=== PATIENT | male | born 1935 | race African-American/Black ===

== ENCOUNTER 2016-09-22 18:40 | Inpatient (IN) | payer OTHER, BC ==
[2016-09-22] MEDS ORDERED: ALBUTEROL SO4 0.083% IH SOL 2.5 MG/3 ML VIAL.NEB. NEB ONE ×2 (18:52→20:07)
[2016-09-22] MEDS ORDERED: MAGNESIUM SULF 50% (8.12 MEQ/2 ML-1 GM VIAL) IVPB ONE (18:52)
[2016-09-22] MEDS ORDERED: AZITHROMYCIN IVPB 500 MG in DEXTROSE 5%-WATER - 250 ML IVPB ONE (18:53)
[2016-09-22] MEDS ORDERED: ACETAMINOPHEN 1000 MG/100 ML VIAL (NON FORMULARY) IVPB ONE (19:37)
--- NOTE | 2016-09-22 19:37 | PDOC ---
History of Present Illness - General History Source: Family Exam Limitations: No Limitations <Curry Jones - Last Filed: 09/22/16 22:20> - General History Source: Patient, EMS, Family Exam Limitations: No Limitations - History of Present Illness Initial Comments: 09/22/16 19:42 The patient is a 81 year old male brought via EMS and presenting with his daughters, with a significant past medical history of COPD, emphysema, HLD, asthmatic, gastric CA, Post resect, BPH, who presents to the emergency department with shortness of breath since yesterday which exacerbated today. The family reports that recent exams show the patient has a small nodule on his left lung. The also report that the patient has been progressively worsening. The family notes that the patient is a heavy smoker. He denies sick contacts or recent travel. The patient denies chest pain, headache and dizziness. Denies fever, chills, nausea, vomit, diarrhea and constipation. Allergies: None Past surgical history: ? stomach removed Social history: Heavy smoker. <Nacho Villa - Last Filed: 09/23/16 00:38> - General Chief Complaint: Respiratory Distress Stated Complaint: DIFFICULTY BREATHING Time Seen by Provider: 09/22/16 18:42 Past History - Past Medical History Anemia: No Asthma: No Cancer: No Cardiac Disorders: No CVA: No COPD: Yes CHF: No Dementia: No Diabetes: No GI Disorders: Yes (GERD) Disorders: Yes (BPH) HTN: No Hypercholesterolemia: Yes Liver Disease: No Seizures: No Thyroid Disease: No - Surgical History Abdominal Surgery: Yes Appendectomy: No Cardiac Surgery: No Cholecystectomy: No GI Surgery: Yes (1/3 stomach removed) Lung Surgery: No Neurologic Surgery: No Orthopedic Surgery: No - Immunization History Immunization Up to Date: Yes - Psycho/Social/Smoking Cessation Hx Anxiety: No Suicidal Ideation: No Smoking History: Current every day smoker Have you smoked in the past 12 months: Yes Number of Cigarettes Smoked Daily: 6 Information on smoking cessation initiated: No 'Breaking Loose' booklet given: 11/22/13 Hx Alcohol Use: Yes Drug/Substance Use Hx: No Substance Use Type: None Hx Substance Use Treatment: No <Curry Jones - Last Filed: 09/22/16 22:20> <Nacho Villa - Last Filed: 09/23/16 00:38> - Past Medical History Allergies/Adverse Reactions: Allergies Allergy/AdvReac Type Severity Reaction Status Date / Time No Known Allergies Allergy Verified 04/04/15 12:56 Home Medications: Ambulatory Orders Lovastatin 20 mg PO DAILY 08/08/12 Tamsulosin HCl 0.4 mg PO DAILY 08/08/12 Albuterol Sulfate [Proventil HFA Inhaler -] 1 - 2 inh PO TID 11/22/13 Salmeterol/Fluticasone [Advair 250Mcg/50Mcg -] 1 inh PO BID 11/22/13 Ipratropium [place] [Atrovent Hfa] 12.9 gm IH PRN PRN #1 hfa.aer.ad 04/04/15 Methylprednisolone [Medrol Dose Dave] 4 mg PO ASDIR #21 tablet 04/04/15 Review of Systems - Review of Systems Able to Perform ROS?: Yes Comments:: 09/22/16 19:42 GENERAL/CONSTITUTIONAL: No fever or chills. No weakness. HEAD, EYES, EARS, NOSE AND THROAT: No change in vision. No ear pain or discharge. No sore throat. CARDIOVASCULAR: +Shortness of breath. No chest pain RESPIRATORY: No cough, wheezing, or hemoptysis. GASTROINTESTINAL: No nausea, vomiting, diarrhea or constipation. GENITOURINARY: No dysuria, frequency, or change in urination. MUSCULOSKELETAL: No joint or muscle swelling or pain. No neck or back pain. SKIN: No rash NEUROLOGIC: No headache, vertigo, loss of consciousness, or change in strength/ sensation. ENDOCRINE: No increased thirst. No abnormal weight change HEMATOLOGIC/LYMPHATIC: No anemia, easy bleeding, or history of blood clots. ALLERGIC/IMMUNOLOGIC: No hives or skin allergy. <Nacho Villa - Last Filed: 09/23/16 00:38> *Physical Exam - Vital Signs Last Vital Signs Temp Pulse Resp BP Pulse Ox 100.8 F H 135 H 35 H 139/120 92 L 09/22/16 18:58 09/22/16 18:58 09/22/16 18:58 09/22/16 18:58 09/22/16 18:58 <Curry Jones - Last Filed: 09/22/16 22:20> - Vital Signs Last Vital Signs Temp Pulse Resp BP Pulse Ox 100.8 F H 135 H 35 H 139/120 100 09/22/16 18:58 09/22/16 18:58 09/22/16 18:58 09/22/16 18:58 09/22/16 19:00 - Physical Exam Comments: 09/22/16 19:48 GENERAL: Awake, alert, and fully oriented, in no acute distress HEAD: No signs of trauma, normocephalic, atraumatic EYES: PERRLA, EOMI, sclera anicteric, conjunctiva clear ENT: Auricles normal inspection, hearing grossly normal, nares patent, oropharynx clear without exudates. Moist mucosa NECK: Normal ROM, supple, no lymphadenopathy, JVD, or masses LUNGS: +Bilateral expiratory wheezing. Using accessory muscles. HEART: Regular rate and rhythm, normal S1 and S2, no murmurs, rubs or gallops, peripheral pulses normal and equal bilaterally. ABDOMEN: Soft, nontender, normoactive bowel sounds. No guarding, no rebound. No masses EXTREMITIES: 1+ pitting edema lower extremities bilaterally. Normal inspection, Normal range of motion. No clubbing or cyanosis. NEUROLOGICAL: Cranial nerves II through XII grossly intact. Normal speech, no focal sensorimotor deficits SKIN: Warm, Dry, normal turgor, no rashes or lesions noted. <Nacho Villa - Last Filed: 09/23/16 00:38> Heart Score/ECG Review #1 ECG reviewed & interpreted by me at: 19:00 09/22/16 20:05 NSR 134, biatrial enlargement, no std/torsten, QTC 424 msec <Curry Jones - Last Filed: 09/22/16 22:20> ED Treatment Course - LABORATORY CBC & Chemistry Diagram: 09/22/16 20:07 09/22/16 20:07 - RADIOLOGY Radiology Studies Ordered: Category Date Time Status CHEST X-RAY PORTABLE* [RAD] Stat Radiology 09/22/16 18:52 Ordered <Curry Jones - Last Filed: 09/22/16 22:20> - LABORATORY CBC & Chemistry Diagram: 09/22/16 20:07 09/22/16 20:07 - RADIOLOGY Radiograph Interpretation: 09/23/16 00:37 Chest X-Ray Reviewed by: Dr. Ceci Bautista Impression: Interval focal opacity/airspace disease in the right lung apex suspicious for pneumonic infiltrates. <Nacho Villa - Last Filed: 09/23/16 00:38> Medical Decision Making - Critical Care Time Total Critical Care Time (minutes): 60 Critical Care Statement: The care of this patient involved high complexity decision making to prevent further life threatening deterioration of the patient 's condition and/or to evalute & treat vital organ system(s) failure or risk of failure. - Medical Decision Making 09/22/16 20:02 A portion of this note was documented by scribe services under my direction. I have reviewed the details of the note, within reason, and agree with the documentation with the following case summary and management plan written by me. Patient treated in the ED. Nursing notes are reviewed and incorporated into the medical decision-making. Vital signs reviewed. Peripheral IV access obtained by the nurse, laboratory studies are drawn and sent, reviewed and interpreted by myself. Vital Signs Temp Pulse Resp BP Pulse Ox 100.8 F H 135 H 35 H 139/120 100 09/22/16 18:58 09/22/16 18:58 09/22/16 18:58 09/22/16 18:58 09/22/16 19:00 81-year-old male with history of COPD, hyperlipidemia, asthma, gastric cancer status post resection, BPH presents to the emergency department for difficulty breathing. Yesterday, patient continues to have some difficulty breathing and wheezing. He's been using a significant amount of albuterol. However, he has gotten progressively worse. Denies fevers or chills. Denies pain. He came into the ER via ambulance. And as a given nebulizers and 125 mg of solu-medrol. Patient continues to smoke cigarettes. Patient has respiratory distress and accessory muscle use and is ill-appearing. Patient was seen immediately by me and placed on BiPAP. Patient was given 2 g of IV magnesium and empiric azithromycin. The patient will need labs and chest x -ray and ABG and admission to the hospital. Consider ICU admission. 09/22/16 22:20 CBC, BMP 09/22/16 20:07 09/22/16 20:07 CMP Sodium 142 mmol/L (136-145) 09/22/16 20:07 Potassium 4.3 mmol/L (3.5-5.1) 09/22/16 20:07 Chloride 99 mmol/L (98-107) 09/22/16 20:07 Carbon Dioxide 34 mmol/L (21-32) H 09/22/16 20:07 Anion Gap 9 (8-16) 09/22/16 20:07 BUN 33 mg/dL (7-18) H D 09/22/16 20:07 Creatinine 2.0 mg/dL (0.7-1.3) H D 09/22/16 20:07 Creat Clearance w eGFR 32.31 (>60) 09/22/16 20:07 Random Glucose 92 mg/dL (74-106) 09/22/16 20:07 Lactic Acid 4.574 mmol/L (0.4-2.0) H* 09/22/16 19:11 Calcium 8.6 mg/dL (8.5-10.1) 09/22/16 20:07 Magnesium 3.0 mg/dL (1.8-2.4) H 09/22/16 20:07 Total Bilirubin 0.7 mg/dL (0.2-1.0) D 09/22/16 20:07 AST 2771 U/L (15-37) H 09/22/16 20:07 ALT 1261 U/L (12-78) H D 09/22/16 20:07 Alkaline Phosphatase 277 U/L (45-117) H D 09/22/16 20:07 Creatine Kinase 589 IU/L (39-308) H 09/22/16 20:07 Creatine Kinase Index 2.9 % (0.0-5.0) 09/22/16 20:07 CK-MB (CK-2) 16.926 ng/ml (0.5-3.6) H 09/22/16 20:07 CK-MB (CK-2) Rel Index Cancelled 09/22/16 20:07 Troponin I 4.00 ng/ml (0.00-0.05) H* 09/22/16 20:07 B-Natriuretic Peptide 06391.16 pg/ml (5-450) H 09/22/16 20:07 Total Protein 6.0 g/dl (6.4-8.2) L 09/22/16 20:07 Albumin 2.8 g/dl (3.4-5.0) L 09/22/16 20:07 Chest xray reviewed, pending official radiology read. Hyperinflated lungs. No obvious infiltrates. The patient was successfully weaned off BiPAP and the patient is speaking in full sentences. The patient was noted to have multiple lab abnormalities. There was multiple lab abnormalities that were concerning. He has acute renal insufficiency, also elevated LFTs and elevated troponin. I discussed the case with oil and gas field technician Dr. Blanchard. Will start aspirin and heparin. Will trend troponins. The patient has no chest pain. The patient has appeared to have multiple indications for endorgan damage. Vancomycin and Zosyn was added. Given these finding is, the patient would benefit from an ICU stay. Case was discussed with nurse practitioner in the ICU Diana who accepts the patient. Case discussed with Dr. White who accepts the patient to her service. Case discussed in detail with admitting physician including history, physical exam and ancillary studies. Admitting physician has assumed care for the patient, will follow all pending diagnostics and will complete the evaluation and treatment. <Curry Jones - Last Filed: 09/22/16 22:20> - Medical Decision Making 09/22/16 21:47 Dr. Katz was called regarding the patient at 9:44pm. Dr. Blanchard covering. Dr. Blanchard was consulted regarding the patient at 9:48pm [phone] <Nacho Villa - Last Filed: 09/23/16 00:38> *DC/Admit/Observation/Transfer - Discharge Dispostion Admit: Yes <Curry Jones - Last Filed: 09/22/16 22:20> - Attestations Scribe Attestion: 09/22/16 19:48 Documentation prepared by Nacho Villa, acting as medical cost consultant for Curry Jones MD <Nacho Villa - Last Filed: 09/23/16 00:38> Diagnosis at time of Disposition: COPD exacerbation, Elevated troponin, Acute renal insufficiency - Discharge Dispostion Condition at time of disposition: Guarded - Referrals
[2016-09-22] MEDS ORDERED: MAGNESIUM SULF 50% (8.12 MEQ/2 ML-1 GM VIAL) ONE (19:46)
[2016-09-22] MEDS ORDERED: ACETAMINOPHEN INJECTION 100 ML IVPB ONE (19:46)
[2016-09-22] MEDS ORDERED: ALBUTEROL SO4 2.5/IPRATROPIUM 0.5 INH SOL 3 ML VIAL.NEB. NEB ONE (19:46)
[2016-09-22 20:14] LABS: ARTERIAL BLD GAS O2 SATURATION 98.2 % (90-98.9); ARTERIAL BLOOD GAS BASE EXCESS 1.4 meq/l (-2-2); ARTERIAL BLOOD GAS HCO3 28.8 meq/L (22-26)
[2016-09-22 20:15] LABS: ARTERIAL BLOOD GAS pH 7.28 (7.35-7.45)
[2016-09-22 20:16] LABS: ALLENS TEST POSITIVE; ART PUNCT SITE RIGHT RADIAL; LPM/O2% 40%; MECH. VENT. BIPAP; METHEMOGLOBIN 1.4 % (0.4-1.5); PT. ON O2? YES; TYPE OF O2 OT
[2016-09-22 20:17] LABS: VENT RATE 14
[2016-09-22 20:30] LABS: BASOPHIL 0.1 % (0-2.0); MCH 27.2 pg (25.7-33.7); MCHC 31.2 g/dl (32.0-35.9); MEAN CELL VOLUME 87.2 fl (80-96); MEAN PLT VOLUME 8.5 fl (7.5-11.1); NEUTROPHILS 89.7 % (42.8-82.8); PLATELET COUNT 130 K/MM3 (134-434); RDW 15.5 % (11.9-15.9); WHITE BLOOD COUNT 4.3 K/mm3 (4.0-10.0)
[2016-09-22] MEDS ORDERED: OSELTAMIVIR PHOSPHATE 75 MG CAPSULE PO ONE (20:31)
[2016-09-22] MEDS ORDERED: AZITHROMYCIN IVPB 250 ML IVPB ONE (20:40)
[2016-09-22 20:46] LABS: INR 1.45 (0.82-1.09); PROTHROMBIN TIME (PATIENT) 16.1 SEC (9.98-11.88)
[2016-09-22 20:49] LABS: ACTIVATED PTT 35.3 SECONDS (26.9-34.4)
[2016-09-22 20:57] LABS: ALBUMIN 2.8 g/dl (3.4-5.0); BILIRUBIN,TOTAL 0.7 mg/dL (0.2-1.0); CALCIUM 8.6 mg/dL (8.5-10.1)
[2016-09-22] MEDS ORDERED: OSELTAMIVIR PHOSPHATE 75 MG CAPSULE ONE (21:18)
[2016-09-22] MEDS ORDERED: VANCOMYCIN 1,000 MG in DEXTROSE 5%-WATER - 250 ML IVPB ONE (21:50)
[2016-09-22] MEDS ORDERED: PIPERACILLIN/TAZOB 3.375 GM/50 ML PRE-DOCKED IVPB ONE (21:50)
[2016-09-22] MEDS ORDERED: VANCOMYCIN 1 GRAM (PRE-DOCKED) 250 ML IVPB ONE (22:01)
[2016-09-22] MEDS ORDERED: PIPERACILLIN/TAZOB 3.375 GM 50 ML IVPB ONE (22:02)
[2016-09-22] MEDS ORDERED: HEPARIN INFUSION - 500 ML IVPB ONE (22:02)
--- NOTE | 2016-09-22 22:14 | PN ---
<SaeedJeff - Last Filed: 09/22/16 23:51> Teaching Attending Note ATTENDING PHYSICIAN STATEMENT I saw and evaluated the patient. I reviewed the resident's note and discussed the case with the resident. I agree with the resident's findings and plan as documented. SUBJECTIVE: Patient is a 81 year old male, current heavy smoker, with significant medical history of COPD, emphysema, HLD, asthma, gastric CA post resection 1/3 removed ( underwent radiation and chemotherapy 2011), BPH who presents with SOB. The patient reports chest pressure for 2 days but denies any pressure at the moment. As per daughter, patient has abdominal aneurysm closely watched by GI and lung nodules for which he tried to schedule a PET scan. OBJECTIVE: Physical: VS: Last Vital Signs Temp Pulse Resp BP Pulse Ox 98.9 F 104 H 28 H 134/96 100 09/22/16 21:42 09/22/16 21:42 09/22/16 21:42 09/22/16 21:42 09/22/16 21:42 GEN: Cachectic using accessory muscles on O2 at bedside HEENT: NCAT, PERRL CARD: RRR, S1 S2 RESP: Decreased breath sounds all jernigan ABD: Scaphoid NT, BWS x4 EXT: - +2 pitting edema bilaterally and equal Labs: CBCD WBC 4.3 K/mm3 (4.0-10.0) 09/22/16 20:07 RBC 4.49 M/mm3 (4.00-5.60) 09/22/16 20:07 Hgb 12.2 GM/dL (11.7-16.9) 09/22/16 20:07 Hct 39.1 % (35.4-49) 09/22/16 20:07 MCV 87.2 fl (80-96) 09/22/16 20:07 MCHC 31.2 g/dl (32.0-35.9) L 09/22/16 20:07 RDW 15.5 % (11.9-15.9) 09/22/16 20:07 Plt Count 130 K/MM3 (134-434) L D 09/22/16 20:07 MPV 8.5 fl (7.5-11.1) 09/22/16 20:07 CMP Sodium 142 mmol/L (136-145) 09/22/16 20:07 Potassium 4.3 mmol/L (3.5-5.1) 09/22/16 20:07 Chloride 99 mmol/L (98-107) 09/22/16 20:07 Carbon Dioxide 34 mmol/L (21-32) H 09/22/16 20:07 Anion Gap 9 (8-16) 09/22/16 20:07 BUN 33 mg/dL (7-18) H D 09/22/16 20:07 Creatinine 2.0 mg/dL (0.7-1.3) H D 09/22/16 20:07 Creat Clearance w eGFR 32.31 (>60) 09/22/16 20:07 Calcium 8.6 mg/dL (8.5-10.1) 09/22/16 20:07 Total Bilirubin 0.7 mg/dL (0.2-1.0) D 09/22/16 20:07 AST 2771 U/L (15-37) H 09/22/16 20:07 ALT 1261 U/L (12-78) H D 09/22/16 20:07 Alkaline Phosphatase 277 U/L (45-117) H D 09/22/16 20:07 Total Protein 6.0 g/dl (6.4-8.2) L 09/22/16 20:07 Albumin 2.8 g/dl (3.4-5.0) L 09/22/16 20:07 Imaging: CXR Impression: mild congestion ASSESSMENT AND PLAN: Patient is a 81 year old male, current heavy smoker, with significant medical history of COPD, emphysema, HLD, asthma, gastric CA post resection, BPH who presents with SOB found to be in severe sepsis with CHF and COPD exacerbation 1. Severe sepsis -Repeat lactic acid -Withhold IVF now due to CHF -Continue Vanco and Zosyn -FINN culture -Continue with tamiflu 2. Hypercarbic respiratory failure -Repeat ABG -Continue BIPAP 3. COPD exacerbation -s/p Solumedrol by EMS in ambulance -Continue Solumedrol 60 Q8 -Duonebs ATC/PRN -Continue Zosyn 4. Influenza A -Continue with tamiflu 5. NSTEMI -Most likely due to demand and Hypoxia -Continue with heparin GTT -Heart score 7 -Trend Troponins/ECG -Continue aspirin -[employer] Power Plant Superintendent consult and spoken to recommendations as above -ECHO complete 6. CHF exacerbation -Rex with Lasix -ECHO complete -Continue BIPAP as needed 7. Acute renal failure -Urine electrolytes in AM -Consider renal US -Avoid nephrotoxins 8. Transaminitis -Possibly due to hypoxia -Hepatitis panel -Hepatic US in AM -If no improvement consider GI consult 9. Thrombocytopenia -Mild -Trend 10. DVT PPX Continue Heparin GTT 11. GI PPX -Not indicated at this time 12. Questionable AAA -Repeat abdominal ultrasound Admit to ICU. Documentation prepared by Jeff Tipton, acting as medical lab director for Austyn White D.O. <Austyn White - Last Filed: 09/23/16 05:49> Teaching Attending Note Name of Resident: Erika Whitmore CC TIME: 60 minutes Critical Care Total Critical Care Time (in minutes): 60 Critical Care Statement: The care of this patient involved high complexity decision making to prevent further life threatening deterioration of the patient 's condition and/or to evalute & treat vital organ system(s) failure or risk of failure.
[2016-09-22] MEDS: HEPARIN - 25,000 UNIT in SODIUM CHLORIDE 495 ML IV SCH (22:16)
[2016-09-22] MEDS ORDERED: PATIENT'S OWN MEDICATION (NON-FORMULARY) (Ipratropium Bromide [Atrovent Hfa] 12.9 GM) IH PRN (23:14)
[2016-09-22] MEDS ORDERED: ALBUTEROL SO4 6.7 GM HFA INHALER IH SCH (23:15)
[2016-09-22] MEDS ORDERED: morphine CARPU-JECT 2 MG/1 ML DISP.SYRIN IVPUSH PRN (23:24)
[2016-09-22] MEDS ORDERED: NITROGLYCERIN SUBLINGUAL 1/150 0.4 MG TAB SL PRN (23:25)
--- NOTE | 2016-09-22 23:57 | HP ---
CHIEF COMPLAINT: SOB PCP: HISTORY OF PRESENT ILLNESS: The patient is a 81 year old male with a significant past medical history of COPD, emphysema, asthma, current smoker, abdominal aneurysm, HLD, s/p gastric CA resection, BPH, recent diagnosis of left lung nodule who presents to the emergency department with shortness of breath since yesterday evening which worsened today. He has basal SOB. He is complaining of chest pressure that was present for two days but currently doesn't have it. The pt is also complaining of weakness. He denies palpitations. The pt has difficulty speaking due his SOB so history was taken mainly from his and daughter.The also report that the patient has been progressively worsening. The patient denies chest pain, headache, nausea, vomiting, diarrhea and constipation. He denies sick contacts or recent travel ER course was notable for: (1)Lactic acid, troponins, (2)Chest x ray (3)BI-Pap Recent Travel: No PAST MEDICAL HISTORY: COPD, emphysema, asthma, current smoker, abdominal aneurysm, HLD, s/p gastric CA resect, BPH, recent diagnosis of left lung nodule PAST SURGICAL HISTORY: gastric resection 09/14 Social History: Smoking: yes, 1 pack/day for most of his life Alcohol:denies Drugs:denies Family History: Allergies No Known Allergies Allergy (Verified 04/04/15 12:56) HOME MEDICATIONS: Medication Instructions Recorded Lovastatin 20 mg PO DAILY 08/08/12 Tamsulosin HCl 0.4 mg PO DAILY 08/08/12 Albuterol Sulfate [Proventil HFA 1 - 2 inh PO TID 11/22/13 Inhaler -] Salmeterol/Fluticasone [Advair 1 inh PO BID 11/22/13 250Mcg/50Mcg -] Ipratropium [place] [Atrovent Hfa] 12.9 gm IH PRN PRN #1 hfa.aer.ad 04/04/15 Methylprednisolone [Medrol Dose 4 mg PO ASDIR #21 tablet 04/04/15 Dave] REVIEW OF SYSTEMS CONSTITUTIONAL: Absent: fever, chills, diaphoresis, generalized weakness, malaise, loss of appetite, weight change HEENT: Absent: rhinorrhea, nasal congestion, throat pain, throat swelling, difficulty swallowing, mouth swelling, ear pain, eye pain, visual changes CARDIOVASCULAR: Absent: chest pain, syncope, palpitations, irregular heart rate, lightheadedness , peripheral edema RESPIRATORY: SOB Absent: cough, dyspnea with exertion, orthopnea, wheezing, GASTROINTESTINAL: Absent: abdominal pain, abdominal distension, nausea, vomiting, diarrhea, constipation, melena, hematochezia GENITOURINARY: Absent: dysuria, frequency, urgency, hesitancy, hematuria, flank pain, genital pain MUSCULOSKELETAL: Absent: myalgia, arthralgia, joint swelling, back pain, ENDOCRINE: Absent: unexplained weight gain, unexplained weight loss, NEUROLOGIC: Absent: headache, focal weakness or paresthesias, dizziness, unsteady gait, seizure, mental status changes, PHYSICAL EXAMINATION GENERAL: Awake, alert, and fully oriented, cachectic, in moderate distress, drowsy. HEAD: Normal with no signs of trauma. EYES: Pupils equal, round and reactive to light, extraocular movements intact, sclera anicteric, conjunctiva clear. No lid lag. EARS, NOSE, THROAT: Ears normal, nares patent, oropharynx clear without exudates. Moist mucous membranes. NECK: Normal range of motion, supple without lymphadenopathy, JVD, or masses. LUNGS: Breath sounds equal, diminished breath sounds B/L. No wheezes, and no crackles. Accessory muscle use, on NC. HEART: Regular rate and rhythm, normal S1 and S2 without murmur, rub or gallop. ABDOMEN: Soft, nontender, not distended, normoactive bowel sounds, no guarding, no rebound, no masses. No hepatomegaly or splenomegaly. MUSCULOSKELETAL: Normal range of motion at all joints. No bony deformities or tenderness. No CVA tenderness. UPPER EXTREMITIES: 2+ pulses, warm, well-perfused. No cyanosis. No clubbing. Cap refill <2 seconds. No peripheral edema. LOWER EXTREMITIES: 2+ pulses, warm, well-perfused. No calf tenderness. +1 peripheral edema. NEUROLOGICAL: Cranial nerves II-XII intact. Normal speech. Gait not observed. PSYCHIATRIC: Cooperative. Good eye contact. Appropriate mood and affect. SKIN: Warm, dry, normal turgor, no rashes or lesions noted. ASSESSMENT/PLAN: The patient is a 81 year old male with a significant past medical history of COPD, emphysema, asthma, current smoker, abdominal aneurysm, HLD, s/p gastric CA resection, BPH, recent diagnosis of left lung nodule who presents to the emergency department with shortness of breath since yesterday evening which worsened today. He has basal SOB. He is admitted for severe sepsis and COPD exacerbation/CHF exacerbation. Severe sepsis: -hold on fluids due to CHF -f/u lactic acid -continue Vanco and Zosyn -f/u ID consult -Urine culture, Blood culture COPD exacerbation: -Oxygen supplementation:Bi-Pap -Methylprednisolone 60 mg Q6h -continue Nebulizers ATC/PRN -cont. Zosyn -Pulmonary consultation Hypercapnic respiratory failure -f/u ABG -continue BIPAP Influenza A -Continue Tamiflu 30 mg BID Chest pain/pressure r/o NSTEMI -Most likely due to demand and Hypoxia -EKG no ST changes -Continue with heparin GTT -Heart score 7 -f/u Troponins/ECG -Continue aspirin, Oxygen, Nitro PRN -Mastic Worker consult -ECHO complete CHF exacerbation -Lasix 20 mg ONCE -ECHO -Continue BIPAP as needed ENZO: -Urine electrolytes in AM -Consider renal US -Avoid nephrotoxins Transaminitis: -Possibly due to hypoxia -Hepatitis panel -Hepatic US in AM -If no improvement consider GI consult AAA: -US in AM DVT PPX Continue Heparin GTT Disposition: Admit to ICU. Problem List - Problem (1) COPD exacerbation Code(s): J44.1 - CHRONIC OBSTRUCTIVE PULMONARY DISEASE W (ACUTE) EXACERBATION (2) Elevated troponin Code(s): R79.89 - OTHER SPECIFIED ABNORMAL FINDINGS OF BLOOD CHEMISTRY (3) CHF exacerbation Code(s): I50.9 - HEART FAILURE, UNSPECIFIED (4) Severe sepsis Code(s): A41.9 - SEPSIS, UNSPECIFIED ORGANISM R65.20 - SEVERE SEPSIS WITHOUT SEPTIC SHOCK (5) NSTEMI (non-ST elevated myocardial infarction) Code(s): I21.4 - NON-ST ELEVATION (NSTEMI) MYOCARDIAL INFARCTION Visit type - Emergency Visit Emergency Visit: Yes ED Registration Date: 09/22/16 Care time: The patient presented to the Emergency Department on the above date and was hospitalized for further evaluation of their emergent condition. - New Patient This patient is new to me today: Yes Date on this admission: 09/23/16 - Critical Care Critical Care patient: No
[2016-09-23] MEDS ORDERED: FUROSEMIDE 40 MG/4 ML INJECTABLE VIAL IVPB ONE
[2016-09-23 00:55] VITALS: BMI 14.3
[2016-09-23] MEDS ORDERED: ATORVASTATIN CA 80 MG TABLET (FP) PO ONE (00:58)
--- NOTE | 2016-09-23 01:02 | CONSULT ---
Consult Consult Specialty:: Pulm/CC - History of Present Illness History of Present Illness: Pt is an 81yr old man with PMHx of COPD (emphysema and asthma), HLD, gastric CA s/p resection. Of note, pt current every day smoker, family reports small lung nodule with pending PET scan and AAA. He presents to the ER with CC of SOB and chest pressure x 2 days. In the ER pt found to have significantly elevated LFTs , BUN/Cr 33/20 (12 ~1.5yrs ago), lactic acid 4.574, CK 589, troponin of 4.0, BNP 11,727 and influenza +. ABG reveals acute on chronic partially compensated respiratory acidosis. Pt admitted to the ICU for further management. Pt received on NC, o2 sat 100%. Upon assessment, pt denies chest pain/headache/n/ v. Pt tachypneic, able to speak in half sentences only but states this is his baseline breathing. Denies home o2 or bipap use. - History Source History Provided By: Patient, Medical Record Limitations to Obtaining History: Clinical Condition - Alcohol/Substance Use Hx Alcohol Use: No - Smoking History Smoking history: Current every day smoker Have you smoked in the past 12 months: Yes Aproximately how many cigarettes per day: 6 Home Medications - Allergies Allergies/Adverse Reactions: Allergies Allergy/AdvReac Type Severity Reaction Status Date / Time No Known Allergies Allergy Verified 04/04/15 12:56 - Home Medications Home Medications: Ambulatory Orders Lovastatin 20 mg PO DAILY 08/08/12 Tamsulosin HCl 0.4 mg PO DAILY 08/08/12 Albuterol Sulfate [Proventil HFA Inhaler -] 1 - 2 inh PO TID 11/22/13 Salmeterol/Fluticasone [Advair 250Mcg/50Mcg -] 1 inh PO BID 11/22/13 Ipratropium Fisher [Atrovent Hfa] 12.9 gm IH PRN PRN #1 [email or web address] 04/04/15 Methylprednisolone [Medrol Dose Dave] 4 mg PO ASDIR #21 tablet 04/04/15 Review of Systems - Review of Systems Cardiovascular: reports: Chest Pain, Shortness of Breath Gastrointestinal: denies: Abdominal Pain, Constipation, Diarrhea, Vomiting Genitourinary: denies: Dysuria Neurological: denies: Headache Physical Exam Vital Signs: Vital Signs Period Temp Pulse Resp BP Sys/Hernández Pulse Ox Last 24 Hr 98.4 F-100.8 F 91-135 21-35 131-161/78-120 92-100 Intake & Output 09/20/16 09/21/16 09/22/16 09/23/16 23:59 23:59 23:59 23:59 Weight 143 lb 4.807 oz 94 lb 5 oz Constitutional: Yes: Cachectic Eyes: Yes: PERRL HENT: Yes: WNL Neck: Yes: WNL Cardiovascular: Yes: S1, S2 Respiratory: Yes: Diminished (bilaterally), On Nasal O2, Tachypnea, Other ( slight accessory muscle use. Able to speak in half sentences only) Gastrointestinal: Yes: Normal Bowel Sounds. No: Tenderness ...Rectal Exam: Yes: Deferred Renal/: No: Colon Present Edema: Yes Edema: LLE: 2+, RLE: 2+ Peripheral Pulses WNL: Yes (+2 bilateral pedal pulses) Integumentary: Yes: Other (appears dry) Neurological: Yes: Alert Psychiatric: Yes: WNL Labs: Abnormal Lab Results 09/22/16 09/22/16 09/22/16 19:11 20:07 20:07 MCHC 31.2 L Plt Count 130 L D Neutrophils % 89.7 H D Lymphocytes % 4.1 L D Monocytes % INR 1.45 H PTT (Actin FS) 35.3 H ABG pH ABG pCO2 at Pt Temp ABG pO2 at Pt Temp ABG HCO3 Carbon Dioxide BUN Creatinine Lactic Acid 4.574 H* Magnesium AST ALT Alkaline Phosphatase Creatine Kinase CK-MB (CK-2) Troponin I B-Natriuretic Peptide Total Protein Albumin 09/22/16 09/22/16 09/23/16 20:07 20:10 00:30 MCHC 31.4 L Plt Count 131 L Neutrophils % 92.7 H Lymphocytes % 4.4 L Monocytes % 2.8 L INR PTT (Actin FS) ABG pH 7.28 L ABG pCO2 at Pt Temp 62.9 H* ABG pO2 at Pt Temp 130.0 H ABG HCO3 28.8 H Carbon Dioxide 34 H BUN 33 H D Creatinine 2.0 H D Lactic Acid Magnesium 3.0 H AST 2771 H ALT 1261 H D Alkaline Phosphatase 277 H D Creatine Kinase 589 H CK-MB (CK-2) 16.926 H Troponin I 4.00 H* B-Natriuretic Peptide 79984.16 H Total Protein 6.0 L Albumin 2.8 L Imaging - Results Chest X-ray: Report Reviewed, Image Reviewed Assessment/Plan Pt is an 81yr old man with PMHx of COPD (emphysema and asthma), HLD, gastric CA s/p resection. Of note, pt current every day smoker, family reports small lung nodule with pending PET scan. Pt now in the ICU for management of COPD exacerbation in setting of influenza, new onset CHF in setting of NSTEMI, significantly elevated LFTs and JORGE. Pulm: -Bipap to assist with work of breathing -O2 sat goal 88-92% -Nebulizers standing and PRN -IV steroids, taper as able -Smoking cessation counseling -f/u repeat chest xray and abg Cardiac: NSTEMI (repeat troponin trending up) new onset chf -Cardiac consulted in ER -Pt started on heparin drip in ER -Monitor PTT -Serial Troponin and EKG -F/U echo -pt s/p asa, will give statin, plavix and bb. will not start acei in setting of jorge. ID: Influenza -F/U cultures -Tamiflu -Empiric Azithro -f/u repeat lactic acid -f/u UA Renal: JORGE (creatinine 1.0 -->2.0) -Consult -Gentle hydration as tolerated (chest xray ordered for a.m) -Strict I/Os -Monitor electrolytes, will start low dose phoslo GI: Significantly elevated LFTs -f/u repeat CMP -f/u hepatitis panel -f/u renal ultrasound -Monitor coags Neuro: -Pain management with morphine prn Prophylactic -DVT
[2016-09-23 01:04] LABS: EOSINOPHIL 0.1 % (0-4.5); MCH 27.1 pg (25.7-33.7); MCHC 31.4 g/dl (32.0-35.9); MEAN CELL VOLUME 86.2 fl (80-96); MEAN PLT VOLUME 7.9 fl (7.5-11.1); NEUTROPHILS 92.7 % (42.8-82.8); PLATELET COUNT 131 K/MM3 (134-434); RDW 15.7 % (11.9-15.9); WHITE BLOOD COUNT 4.3 K/mm3 (4.0-10.0)
[2016-09-23 01:37] LABS: ALBUMIN 2.7 g/dl (3.4-5.0); BILIRUBIN,TOTAL 0.5 mg/dL (0.2-1.0); MAGNESIUM 3.2 mg/dL (1.8-2.4); PHOSPHOROUS 6.9 mg/dL (2.5-4.9); TOT PROT 5.5 g/dl (6.4-8.2)
[2016-09-23 01:41] LABS: ARTERIAL BLD GAS O2 SATURATION 96.3 % (90-98.9); ARTERIAL BLOOD GAS BASE EXCESS 3.6 meq/l (-2-2); ARTERIAL BLOOD GAS HCO3 31.3 meq/L (22-26); ARTERIAL BLOOD GAS PO2 97.9 mmHg (68-100)
[2016-09-23 01:42] LABS: ALLENS TEST POSITIVE; ART PUNCT SITE RIGHT RADIAL; LPM/O2% 2.0LPM; PT. ON O2? YES; TYPE OF O2 NASAL CANNULA
[2016-09-23 01:44] LABS: ARTERIAL BLOOD GAS pH 7.29 (7.35-7.45)
[2016-09-23 01:49] LABS: TROPONIN I 5.07 ng/ml (0.00-0.05)
[2016-09-23] MEDS ORDERED: CLOPIDOGREL BISULFATE 300 MG TABLET PO ONE (01:51)
[2016-09-23] MEDS ORDERED: METOPROLOL TARTRATE 5 MG/5 ML VIAL IVPUSH ONE (01:53)
[2016-09-23] MEDS: methylPREDNISolone NA SUCC 125 MG/2 ML VIAL IVPB SCH ×3 (02:35→17:15)
[2016-09-23] MEDS: ALBUTEROL SO4 0.083% IH SOL 2.5 MG/3 ML VIAL.NEB. NEB SCH ×6 (02:41→22:56)
[2016-09-23] MEDS: SODIUM CHLORIDE 1,000 ML IV SCH (03:36)
[2016-09-23] MEDS ORDERED: PIPERACILLIN/TAZOB 3.375 GM 50 ML IVPB ONE ×3 (04:00→07:00)
[2016-09-23] MEDS ORDERED: VANCOMYCIN 1 GRAM (PRE-DOCKED) 1,000 MG/250 ML BAG IVPB ONE (06:00)
[2016-09-23] MEDS ORDERED: VANCOMYCIN 1,000 MG in DEXTROSE 5%-WATER - 250 ML IVPB ONE (06:00)
[2016-09-23] MEDS: CALCIUM ACETATE 667 MG CAPSULE (FP) PO SCH ×2 (07:38→17:15)
[2016-09-23 08:20] LABS: ARTERIAL BLOOD GAS pH 7.36 (7.35-7.45)
[2016-09-23 08:21] LABS: ALLENS TEST POSITIVE; ART PUNCT SITE LEFT RADIAL; ARTERIAL BLD GAS O2 SATURATION 93.3 % (90-98.9); ARTERIAL BLOOD GAS BASE EXCESS 5.2 meq/l (-2-2); ARTERIAL BLOOD GAS HCO3 31.6 meq/L (22-26); ARTERIAL BLOOD GAS PO2 73.1 mmHg (68-100); LPM/O2% 25%; PT. ON O2? YES
[2016-09-23] MEDS ORDERED: INFLUENZA VACCINE 45 MCG/0.5 ML (MDV 16-17) IM ONE (09:00)
[2016-09-23 09:25] LABS: TROPONIN I 4.42 ng/ml (0.00-0.05)
--- NOTE | 2016-09-23 09:27 | PN ---
Progress Note (short form) - Note Progress Note: Cardiology Consult Dictated 81M COPD, gastric CA w/ possible lung mets admitted w/ influenza, elevated lactic acid and +TnI REC: NSTEMI in setting of influenza infection in elderly gentleman, frail with gastric CA. Medical Rx for now w/ ASA, Plavix, heparin. Cycle enzymes and serial ECGs. Echo Treatment of influenza as per Critical Care Team
[2016-09-23] MEDS: TAMSULOSIN HCL 0.4 MG CAP.ER.24H (FP) PO SCH (09:50)
[2016-09-23] MEDS: METOPROLOL TARTRATE 25 MG TABLET (FP) PO SCH (09:51)
[2016-09-23] MEDS ORDERED: PATIENT'S OWN MEDICATION (NON-FORMULARY) (Lovastatin [Lovastatin] 20 MG) PO SCH (10:00)
[2016-09-23] MEDS ORDERED: OSELTAMIVIR PHOSPHATE 30 MG CAPSULE PO SCH (10:00)
[2016-09-23] MEDS: OSELTAMIVIR PHOSPHATE 30 MG CAPSULE PO SCH (10:12)
--- NOTE | 2016-09-23 10:20 | CONS ---
DATE OF CONSULTATION: 09/23/2016 REQUESTING PHYSICIAN: The consultation is requested by Dr. Franco for positive troponin. CHIEF COMPLAINT: Shortness of breath. HISTORY OF PRESENT ILLNESS: An 81-year-old gentleman past medical history of COPD, hyperlipidemia, gastric cancer with possible lung metastasis, history of gastric resection, BPH, brought into the emergency department by EMS. Family reports that the patient has been short of breath, generalized weakness. Patient denies chest pain, but states that he has felt weak and short of breath for about 1 week. Patient is a heavy smoker. He denies palpitations, PND, orthopnea, or lower extremity edema. He is currently in the ICU on CPAP, alert and oriented. PAST MEDICAL HISTORY: His past medical history includes gastric cancer, status post resection with possible lung metastasis, smoker, hyperlipidemia, BPH, COPD. ALLERGIES: He has no known drug allergies. MEDICATIONS: His home medications include Advair, lovastatin 20 nightly, Flomax 0.4 daily, Solu-Medrol Dose Pack, Atrovent and albuterol. Currently, in the ICU, he is on albuterol nebulizer p.r.n., Lipitor 80 nightly, azithromycin, PhosLo, Plavix 75 daily, intravenous heparin, Solu-Medrol 60 mg IV q.8, Lopressor 12.5 daily, Tamiflu, Flomax and vancomycin. FAMILY HISTORY: Noncontributory. SOCIAL HISTORY: Patient is an active smoker. He denies alcohol use. PHYSICAL EXAMINATION: Vitals: Temperature was 100.8, currently 98.2; pulse 86, blood pressure 143/ 89. Neck: No bruits. Heart: S1, 2 regular. Chest: Decreased breath sounds bilaterally. Abdomen: Soft, nontender. Extremities: 1+ edema bilaterally. General: The patient looks cachectic, frail. CBC: White count 4.3, hematocrit 37, platelets 131. PTT 58.9. ABG 7.36, 58 NX73 ON 25% BiPAP. Sodium 141, BUN 40, creatinine 2.0, unknown baseline; glucose 230, lactic acid 2.026, AST 2989, ALT 1281, alkaline phosphatase 233, CK 663, 653, and troponin initially 4, next set 5.07, third set 4.42. His influenza A was positive, blood cultures are currently pending. His EKG showed sinus tachycardia at 134 beats per minute on presentation. Currently, on telemetry he is in sinus rhythm. Chest x-ray initially showed an interval focal opacity/airspace disease in the right lung apex suspicious for pneumonic infiltrates. IMPRESSION: An 81-year-old male with history of gastric cancer, status post resection, possible lung metastasis, chronic obstructive pulmonary disease, active smoker, presents to the emergency room with 1 week of fatigue, shortness of breath, found to have positive influenza A, possible pneumonia and a arm-XY-bbyjiscrs myocardial infarction in the setting of infection/sepsis. PLAN: In this 81-year-old frail gentleman with gastric cancer with possible metastatic disease, his non-STEMI would be most appropriately managed medically at this time. - Agree with aspirin, heparin and Plavix. - Will cycle cardiac enzymes and serial EKGs. - Echocardiogram for assessment of LV function. - Treatment of pneumonia and influenza as per critical care team. - Currently, the patient is chest pain free and hemodynamically stable. Will consider ischemic evaluation once recovered from acute infection, but will need to balance risks and benefits of an invasive approach considering his overall functional status and possible metastatic disease. Thank you for this consultation. JUNIOR MONROY M.D. 1 LETI/[id number] cc: Brianne Franco M.D. MTDD
--- NOTE | 2016-09-23 10:51 | PN ---
Progress Note (short form) - Note Progress Note: ID Consult dictated Acute influenza A, possible pneumonia Acute exacerbation COPD Cachexia S/P partial gastrectomy Azotemia Elevated LFTs Lung nodule Droplet precautions Tamiflu Empiric zithromax/ ceftriaxone Liver sonogram Hepatitis profile Critical care time 45min
[2016-09-23] MEDS ORDERED: PNEUMOC 13-VAL CONJ-DIP CRM/PF 0.5 ML DISP.SYRIN IM ONE (11:00)
[2016-09-23] MEDS: CEFTRIAXONE 50 ML IVPB SCH (11:05)
--- NOTE | 2016-09-23 11:16 | EKG ---
Test Reason : Blood Pressure : / mmHG Vent. Rate : 134 BPM Atrial Rate : 134 BPM P-R Int : 120 ms QRS Dur : 072 ms QT Int : 284 ms P-R-T Axes : 082 075 070 degrees QTc Int : 424 ms POOR DATA QUALITY, INTERPRETATION MAY BE ADVERSELY AFFECTED SINUS TACHYCARDIA WITH PREMATURE ATRIAL COMPLEXES BIATRIAL ENLARGEMENT ABNORMAL ECG WHEN COMPARED WITH ECG OF 04-APR-2015 15:16, PREMATURE ATRIAL COMPLEXES ARE NOW PRESENT VENT. RATE HAS INCREASED BY 68 BPM NON-SPECIFIC CHANGE IN ST SEGMENT IN LATERAL LEADS INVERTED T WAVES HAVE REPLACED NONSPECIFIC T WAVE ABNORMALITY IN ANTERIOR LEADS Confirmed by VENKAT WHITTAKER MD ([id number]) on 09/23/2016 11:16:28 AM Referred By: Confirmed By:VENKAT WHITTAKER MD
--- NOTE | 2016-09-23 11:54 | CONS ---
DATE OF CONSULTATION: DATE OF DICTATION: 09/23/2016 HISTORY OF PRESENT ILLNESS: The patient is an 81-year-old male with a history of COPD, still currently smoking, evaluated for acute influenza. The patient reports a several-day history of worsening shortness of breath. He became markedly short of breath 1 day prior to admission. He presented to the emergency room, where he had low-grade fever and was tachycardic and tachypneic with a low O2 saturation. He was treated with nebulizers and intravenous corticosteroids. He remained dyspneic with accessory muscle use. He was placed in BiPAP and transferred to the intensive care unit. He was empirically treated with vancomycin and Zosyn. An influenza swab was performed and was positive for influenza A. Patient at the present time complains of shortness of breath. However, he reports improvement. He does have an occasional dry cough. He denies any chest pain. His course has been complicated by elevated cardiac enzymes and elevated liver enzymes. He is being evaluated for possible acute myocardial infarction. The patient denies any ill contacts, lives at home with his of 60 years. He reports receiving the influenza vaccine within the past week or so. He is a smoker and continues to smoke. No recent travel or pet exposure. No recent hospitalizations. His last [place] hospitalization was in March of 2015. PAST MEDICAL HISTORY: Positive for COPD and asthma, hypertension, gastric cancer, BPH, abdominal aortic aneurysm. PAST SURGICAL HISTORY: Status post partial gastrectomy several years ago for gastric cancer. ALLERGIES: No known allergies. MEDICATIONS: Include albuterol, Solu-Medrol, ceftriaxone, Flomax, Lipitor, Lopressor, Plavix. SOCIAL HISTORY: He lives at home with his . Positive tobacco use history. He denies history of illicit drug use. He denies alcohol abuse. His HIV status is not known. SYSTEMS REVIEW: Neurologic: No loss of consciousness, seizure activity, or focal weakness. Cardiac: Negative for chest pain or palpitations. Respiratory: As per HPI. Gastrointestinal: Status post partial gastrectomy. Genitourinary: Positive for azotemia. LABORATORY DATA: White count 4.3, hematocrit 37.1, platelet count 131. BUN 40, creatinine 2.0, total bilirubin 0.5, alkaline phosphatase 233, AST 2989, ALT 1281. Chest x-ray hyperaeration, no focal consolidation. PHYSICAL EXAMINATION: General: He is cachectic with temporal wasting. He is short of breath at rest, able to speak in complete sentences. Vital signs: Temperature 97.5, maximum temperature 100.8, blood pressure 138/91, pulse 80 and regular, respirations 24 per minute. HEENT: Sclerae anicteric. Dry mucous membranes. Heart: Heart sounds tachycardic S1, S2. Lungs: Diminished breath sounds throughout. No rhonchi, rales, or wheezing. Abdomen: Slightly distended. Soft. No tenderness elicited. Extremities: Negative for edema. IMPRESSION: 1. Acute influenza A. 2. Possible superimposed pneumonia. 3. Acute exacerbation of chronic obstructive pulmonary disease. 4. Cachexia. 5. Status post partial gastrectomy. 6. Azotemia. 7. Elevated liver enzymes, possibly secondary to sepsis. 8. Pulmonary nodules. Continue ICU monitoring, supplemental oxygen, intravenous corticosteroids, inhaled bronchodilators, Tamiflu adjusted for creatinine clearance, empiric coverage for possible superimposed bacterial pneumonia with Zithromax and ceftriaxone. Would consider CT scan of the chest to further evaluate lung parenchyma and document pulmonary nodule, a sonogram of the liver, hepatitis profile. Critical care time spent 45 minutes. Will follow. Thank you for the kind referral. JUNIOR KAMARA M.D. [id number]
--- NOTE | 2016-09-23 13:48 | PN ---
Progress Note, Physician History of Present Illness: patient seen and examined on BiPAP - Current Medication List Current Medications: Active Medications Albuterol Sulfate (Ventolin 0.083% Nebulizer Soln -) 1 amp NEB Q4HPO [facility] Last Admin: 09/23/16 10:00 Dose: 1 amp Atorvastatin Calcium (Lipitor -) 80 mg PO HS [facility] Azithromycin (Zithromax -) 250 mg PO DAILY@2000 [facility] Calcium Acetate (Phoslo -) 667 mg PO BIDWM [facility] Last Admin: 09/23/16 07:38 Dose: 667 mg Clopidogrel Bisulfate (Plavix -) 75 mg PO DAILY@2200 [facility] Heparin Sodium (Porcine) 25, (000 unit/ Sodium Chloride) 500 mls @ 16 mls/hr IV TITR WICHO; 800 UNIT/HR PRN Reason: Protocol Last Admin: 09/22/16 22:16 Dose: 16 mls/hr Vancomycin HCl 1,000 mg/ (Dextrose) 250 mls @ 250 mls/hr IVPB ONCE ONE Stop: 09/23/16 06:59 Sodium Chloride (Normal Saline -) 1,000 mls @ 50 mls/hr IV ASDIR [facility] Last Admin: 09/23/16 03:36 Dose: 50 mls/hr Ceftriaxone Sodium (Rocephin 1gm Ivpb (Pre-Docked)) 50 mls @ 100 mls/hr IVPB DAILY [facility] Last Admin: 09/23/16 11:05 Dose: 100 mls/hr Methylprednisolone Sodium Succinate (Solu-Medrol -) 60 mg IVPB Q8H-IV [facility] Last Admin: 09/23/16 09:34 Dose: 60 mg Metoprolol Tartrate (Lopressor -) 12.5 mg PO DAILY [facility] Last Admin: 09/23/16 09:51 Dose: 12.5 mg Morphine Sulfate (Morphine Injection -) 1 mg IVPUSH ONCE PRN PRN Reason: PAIN Stop: 09/23/16 23:23 Non-Formulary Medication (Ipratropium Rifton [Atrovent Hfa]) 12.9 gm IH PRN PRN PRN Reason: SHORTNESS OF BREATH Non-Formulary Medication (Lovastatin [Lovastatin]) 20 mg PO DAILY [facility] Oseltamivir Phosphate (Tamiflu -) 30 mg PO DAILY [facility] Last Admin: 09/23/16 10:12 Dose: 30 mg Tamsulosin HCl (Flomax -) 0.4 mg PO DAILY [facility] Last Admin: 09/23/16 09:50 Dose: 0.4 mg - Objective Vital Signs: Vital Signs Temperature 97.5 F L 09/23/16 10:25 Pulse Rate 82 09/23/16 12:30 Respiratory Rate 22 09/23/16 12:00 Blood Pressure 129/90 09/23/16 12:00 O2 Sat by Pulse Oximetry (%) 93 L 09/23/16 12:30 Constitutional: Yes: Cachectic, Thin Eyes: Yes: EOM Intact HENT: Yes: Atraumatic Neck: Yes: Supple Cardiovascular: Yes: Regular Rate and Rhythm Respiratory: Yes: CTA Bilaterally, On BiPap, Poor Air Entry, Other (barrell chest) Gastrointestinal: Yes: Soft, Distention Edema: Yes Edema: LLE: 2+, RLE: 2+ Labs: CBC, BMP 09/23/16 00:30 09/23/16 00:30 INR, PTT INR 1.45 (0.82-1.09) H 09/22/16 20:07 Assessment/Plan Pt is an 81yr old man with PMHx of COPD (emphysema and asthma), HLD, gastric CA s/p resection. Of note, pt current every day smoker, family reports small lung nodule with pending PET scan. Pt now in the ICU for management of COPD exacerbation in setting of influenza, new onset CHF in setting of NSTEMI, significantly elevated LFTs and ENZO. 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 Cardiac: NSTEMI (repeat troponin trending up) possible new onset chf Cardiac consulted appreciated continue hep gtt Monitor PTT q6h Troponin trending down now F/U echo done not read Plavix statin BB will need intervention in near future medical management for now ID: Influenza Tamiflu resp precaution Renal: ENZO (creatinine 1.0 -->2.0) Consult Gentle hydration as tolerated (chest xray ordered for a.m) Strict I/Os Metabolic acidosis secondary to elevated lactic acid GI: Significantly elevated LFTs likely from hypotensive hepatopathy (shock liver) will trend LFTs Neuro: Pain management with morphine prn FEN: IVF no electrolyte issues Sodium/fat controlled diet
--- NOTE | 2016-09-23 14:21 | PN ---
Teaching Attending Note Name of Resident: Fan Lewis ATTENDING PHYSICIAN STATEMENT I saw and evaluated the patient. I reviewed the resident's note and discussed the case with the resident. I agree with the resident's findings and plan as documented. SUBJECTIVE:states he been having difficulty breathing for several days. also had chest pressure, sub sternal for 2 days. states he has some discomfort now but not as severe as previously. states that his appetite has been poor but denies any significant weight loss. denies fever, chills, palpitaitons, N/V/C/D OBJECTIVE: Last Vital Signs Temp Pulse Resp BP Pulse Ox 97.5 F L 84 22 138/82 99 09/23/16 10:25 09/23/16 16:00 09/23/16 16:00 09/23/16 16:00 09/23/16 15:12 General NAD, cachectic CV S1 S2 RRR no murmur/rub/gallop no chest wall tenderness Lungs CTA B/L no wheezing/rales/rhonchi poor inspiratory effort Abdomen soft +distention, tympanic hypoactive BS Extremities 1+pitting edema ASSESSMENT AND PLAN: 81yo M with PMH COPD, Dyslipidemia, gastric ca s/p Rtx/chemo and gastric resection (2012) and BPH presented to the ER and was admitted for further evaluation of their emergent condition 1. NSTEMI-likely demand ischemia. asa/plavix loaded and now on hep ggt. echo ordered. trend troponins till peak. cardio on board. will need ischemia workup once medically optimized 2. acute hypercapnic respiratory distress-possible due to PNA and flu. currently on bipap saturating 98%. Retaining CO2, likely retainer at baseline. no previous labs to compare. titrate off bipap as tolerated. on steroids IV. 3. sepsis due to PNA and Influenza A- Tm 100.8. +lactic acidosis. trend till coming down. droplet precautions. given Azithromycin/Vanco and Zosyn in the ER. started on tamiflu. ID consulted. can likely de-escalate abx. awaiting ID recommendations. f/u cx 4. ENZO- likely due to sepsis- IVF. avoid nephrotoxic medications 5. Transaminitis- possibly sepsis. hepatitis panel pending. pt denies tylenol use. u/s pending 6. BPH- flomax 7. DVT ppx- hep ggt The care of this patient involved high complexity decision making to prevent further life threatening deterioration of the patient's condition and/or to evaluate & treat vital organ system(s) failure or risk of failure. critical care time 45 minutes
--- NOTE | 2016-09-23 14:22 | PN ---
Physical Exam: SUBJECTIVE: Patient seen and examined at bedside. Per nurse, one episode of fever of 100.8F , otherwise, no acute event overnight. Patient is not aware of his critical condition and stated that he wants to go home. He reported feeling fine and breathing OK on the BiPAP and denied chest pain, abd pain, n/v, bowel or urinary sx. OBJECTIVE: Vital Signs Period Temp Pulse Resp BP Sys/Hernández Pulse Ox Last 24 Hr 97.5 F-98.9 F 77-98 17-28 120-161/78-105 93-100 GENERAL: The patient is awake, alert, oriented to time and person, thin, frail, able to speak in full sentences through BiPAP, in moderate respiratory distress on BiPAP (14/6/25%) NECK: no JVD or bruits LUNGS: CTAB HEART: RRR, S1, S2 without murmur, rub or gallop. ABDOMEN: Soft, nontender, nondistended, normoactive bowel sounds, no guarding, no rebound, no hepatosplenomegaly, no masses. EXTREMITIES: trace edema. Abnormal Lab Results 09/22/16 09/22/16 09/22/16 19:11 20:07 20:07 MCHC 31.2 L Plt Count 130 L D Neutrophils % 89.7 H D Lymphocytes % 4.1 L D Monocytes % INR 1.45 H PTT (Actin FS) 35.3 H ABG pH ABG pCO2 at Pt Temp ABG pO2 at Pt Temp ABG HCO3 ABG O2 Content ABG Base Excess Chloride Carbon Dioxide BUN Creatinine Random Glucose Lactic Acid 4.574 H* Calcium Phosphorus Magnesium AST ALT Alkaline Phosphatase Creatine Kinase CK-MB (CK-2) Troponin I B-Natriuretic Peptide Total Protein Albumin 09/22/16 09/22/16 09/23/16 20:07 20:10 00:30 MCHC 31.4 L Plt Count 131 L Neutrophils % 92.7 H Lymphocytes % 4.4 L Monocytes % 2.8 L INR PTT (Actin FS) ABG pH 7.28 L ABG pCO2 at Pt Temp 62.9 H* ABG pO2 at Pt Temp 130.0 H ABG HCO3 28.8 H ABG O2 Content ABG Base Excess Chloride Carbon Dioxide 34 H BUN 33 H D Creatinine 2.0 H D Random Glucose Lactic Acid Calcium Phosphorus Magnesium 3.0 H AST 2771 H ALT 1261 H D Alkaline Phosphatase 277 H D Creatine Kinase 589 H CK-MB (CK-2) 16.926 H Troponin I 4.00 H* B-Natriuretic Peptide 29698.16 H Total Protein 6.0 L Albumin 2.8 L 09/23/16 09/23/16 09/23/16 00:30 00:30 00:30 MCHC Plt Count Neutrophils % Lymphocytes % Monocytes % INR PTT (Actin FS) 58.9 H D ABG pH ABG pCO2 at Pt Temp ABG pO2 at Pt Temp ABG HCO3 ABG O2 Content ABG Base Excess Chloride 97 L Carbon Dioxide 34 H BUN 40 H D Creatinine 2.0 H Random Glucose 230 H D Lactic Acid Calcium 8.0 L Phosphorus 6.9 H Magnesium 3.2 H AST 2989 H ALT 1281 H Alkaline Phosphatase 233 H Creatine Kinase 663 H CK-MB (CK-2) 21.744 H Troponin I 5.07 H* B-Natriuretic Peptide Total Protein 5.5 L Albumin 2.7 L 09/23/16 09/23/16 09/23/16 00:30 01:25 07:45 MCHC Plt Count Neutrophils % Lymphocytes % Monocytes % INR PTT (Actin FS) ABG pH 7.29 L ABG pCO2 at Pt Temp 67.8 H* ABG pO2 at Pt Temp ABG HCO3 31.3 H ABG O2 Content 14.7 L ABG Base Excess 3.6 H Chloride Carbon Dioxide BUN Creatinine Random Glucose Lactic Acid 2.026 H* Calcium Phosphorus Magnesium AST ALT Alkaline Phosphatase Creatine Kinase 653 H CK-MB (CK-2) Troponin I 4.42 H* B-Natriuretic Peptide Total Protein Albumin 09/23/16 08:15 MCHC Plt Count Neutrophils % Lymphocytes % Monocytes % INR PTT (Actin FS) ABG pH ABG pCO2 at Pt Temp 58.0 H ABG pO2 at Pt Temp ABG HCO3 31.6 H ABG O2 Content ABG Base Excess 5.2 H Chloride Carbon Dioxide BUN Creatinine Random Glucose Lactic Acid Calcium Phosphorus Magnesium AST ALT Alkaline Phosphatase Creatine Kinase CK-MB (CK-2) Troponin I B-Natriuretic Peptide Total Protein Albumin Active Medications Generic Name Dose Route Start Last Admin Trade Name Freq PRN Reason Stop Dose Admin Albuterol Sulfate 1 amp 09/23/16 02:15 09/23/16 10:00 Ventolin 0.083% Nebulizer Soln - NEB 1 amp Q4HPO [facility] Administration Atorvastatin Calcium 80 mg 09/23/16 22:00 Lipitor - PO HS [facility] Azithromycin 250 mg 09/23/16 20:00 Zithromax - PO DAILY@2000 [facility] Calcium Acetate 667 mg 09/23/16 08:00 09/23/16 07:38 Phoslo - PO 667 mg BIDWM [facility] Administration Clopidogrel Bisulfate 75 mg 09/23/16 22:00 Plavix - PO DAILY@2200 [facility] Heparin Sodium (Porcine) 25, 500 mls @ 16 mls/hr 09/22/16 22:00 09/22/16 22:16 000 unit/ Sodium Chloride IV 16 mls/hr TITR [facility] Administration Protocol 800 UNIT/HR Vancomycin HCl 1,000 mg/ 250 mls @ 250 mls/hr 09/23/16 06:00 Dextrose IVPB 09/23/16 06:59 ONCE ONE Sodium Chloride 1,000 mls @ 50 mls/hr 09/23/16 02:30 09/23/16 03:36 Normal Saline - IV 50 mls/hr ASDIR [facility] Administration Ceftriaxone Sodium 50 mls @ 100 mls/hr 09/23/16 11:15 09/23/16 11:05 Rocephin 1gm Ivpb (Pre-Docked) IVPB 100 mls/hr DAILY [facility] Administration Methylprednisolone Sodium Succinate 60 mg 09/23/16 02:00 09/23/16 09:34 Solu-Medrol - IVPB 60 mg Q8H-IV [facility] Administration Metoprolol Tartrate 12.5 mg 09/23/16 10:00 09/23/16 09:51 Lopressor - PO 12.5 mg DAILY [facility] Administration Morphine Sulfate 1 mg 09/22/16 23:24 Morphine Injection - IVPUSH 09/23/16 23:23 ONCE PRN PAIN Non-Formulary Medication 12.9 gm 09/22/16 23:14 Ipratropium [place] [Atrovent Hfa] IH PRN PRN SHORTNESS OF BREATH Non-Formulary Medication 20 mg 09/23/16 10:00 Lovastatin [Lovastatin] PO DAILY [facility] Oseltamivir Phosphate 30 mg 09/23/16 10:00 09/23/16 10:12 Tamiflu - PO 30 mg DAILY [facility] Administration Tamsulosin HCl 0.4 mg 09/23/16 10:00 09/23/16 09:50 Flomax - PO 0.4 mg DAILY [facility] Administration Microbiology 09/23/16 07:00 Urine For Antigen Detection Legionella Antigen -negative 09/23/16 07:00 Urine For Antigen Detection Streptococcus pneumoniae Antigen -negative 09/22/16 19:22 Nasopharyngeal Swab Influenza -positive Imaging studies: CXR: Hyperinflation. No acute pathology. No sign of congestion or infiltrate ECHO: within normal limits EKG: SINUS TACHYCARDIA WITH PREMATURE ATRIAL COMPLEXES, BIATRIAL ENLARGEMENT, ABNORMAL ECG ASSESSMENT/PLAN: 81 yo M with h/o COPD, emphysema, asthma, current smoker, abdominal aneurysm, HLD, gastric CA s/p resection and radiation, BPH, recent diagnosis of left lung nodule admitted to ICU for severe sepsis in the setting of COPD exacerbation. Severe sepsis likely 2/2 influenza - vitals stable, normal WBC with 92% neutrophils - hemodynamically stable and responded to fluid well - on tamiflu and azthromycin as prophylatic abx - lactic acid trending down Acute respiratory failure, in the setting of COPD exacerbation - improvement on serial ABG - chronic CO2 retainer - on NC 3L - cont. atrovent and ventolin - BiPAP PRN NSTEMI 2/2 demand ischemia - normal EKG and ECHO - elevated troponins x 3 - cont. aspirin, supplemental O2, Nitro PRN, heparin gtt CHF - not fluid overloaded clinically - received lasix once 20mg - strict I/O ENZO - normal baseline - f/u renal U/S - avoid nephrotoxins Transaminitis 2/2 sepsis - hepatitis panel - f/u hepatic U/S - cont. to monitor BPH - cont. flomax FEN - IVF 50cc/hr - cont. to monitor electrolytes - low fat and sodium diet Prophylaxis - DVT: on heparin gtt - GI: not indicated - deconditioning: ICU critical care for now Dispo: will transfer to med-surg tomorrow if stable. Visit type - Emergency Visit Emergency Visit: No - New Patient This patient is new to me today: Yes Date on this admission: 09/23/16 - Critical Care Critical Care patient: Yes Total Critical Care Time (in minutes): 45 Critical Care Statement: The care of this patient involved high complexity decision making to prevent further life threatening deterioration of the patient 's condition and/or to evalute & treat vital organ system(s) failure or risk of failure. - Discharge Referral Referred to [facility] No
--- NOTE | 2016-09-23 15:16 | PN ---
Teaching Attending Note Name of Resident: Alexander Herrera ATTENDING PHYSICIAN STATEMENT I saw and evaluated the patient. I reviewed the resident's note and discussed the case with the resident. I agree with the resident's findings and plan as documented. SUBJECTIVE: Patient seen and examined in the ICU. Awake and alert, off BiPAP. Denies CP or SOB. ECHO being performed at the bedside. Intake & Output 09/20/16 09/21/16 09/22/16 09/23/16 23:59 23:59 23:59 23:59 Intake Total 1709 Output Total 500 Balance 1209 Weight 143 lb 4.807 oz 94 lb 5 oz Last Vital Signs Temp Pulse Resp BP Pulse Ox 97.5 F L 88 22 113/82 100 09/23/16 10:25 09/23/16 14:56 09/23/16 13:58 09/23/16 13:58 09/23/16 14:56 Active Medications Albuterol Sulfate (Ventolin 0.083% Nebulizer Soln -) 1 amp NEB Q4HPO [facility] Last Admin: 09/23/16 10:00 Dose: 1 amp Atorvastatin Calcium (Lipitor -) 80 mg PO HS [facility] Azithromycin (Zithromax -) 250 mg PO DAILY@2000 [facility] Calcium Acetate (Phoslo -) 667 mg PO BIDWM [facility] Last Admin: 09/23/16 07:38 Dose: 667 mg Clopidogrel Bisulfate (Plavix -) 75 mg PO DAILY@2200 [facility] Heparin Sodium (Porcine) 25, (000 unit/ Sodium Chloride) 500 mls @ 16 mls/hr IV TITR [facility]; 800 UNIT/HR PRN Reason: Protocol Last Admin: 09/22/16 22:16 Dose: 16 mls/hr Vancomycin HCl 1,000 mg/ (Dextrose) 250 mls @ 250 mls/hr IVPB ONCE ONE Stop: 09/23/16 06:59 Sodium Chloride (Normal Saline -) 1,000 mls @ 50 mls/hr IV ASDIR [facility] Last Admin: 09/23/16 03:36 Dose: 50 mls/hr Ceftriaxone Sodium (Rocephin 1gm Ivpb (Pre-Docked)) 50 mls @ 100 mls/hr IVPB DAILY [facility] Last Admin: 09/23/16 11:05 Dose: 100 mls/hr Methylprednisolone Sodium Succinate (Solu-Medrol -) 60 mg IVPB Q8H-IV [facility] Last Admin: 09/23/16 09:34 Dose: 60 mg Metoprolol Tartrate (Lopressor -) 12.5 mg PO DAILY [facility] Last Admin: 09/23/16 09:51 Dose: 12.5 mg Morphine Sulfate (Morphine Injection -) 1 mg IVPUSH ONCE PRN PRN Reason: PAIN Stop: 09/23/16 23:23 Non-Formulary Medication (Ipratropium [place] [Atrovent Hfa]) 12.9 gm IH PRN PRN PRN Reason: SHORTNESS OF BREATH Non-Formulary Medication (Lovastatin [Lovastatin]) 20 mg PO DAILY [facility] Oseltamivir Phosphate (Tamiflu -) 30 mg PO DAILY [facility] Last Admin: 09/23/16 10:12 Dose: 30 mg Tamsulosin HCl (Flomax -) 0.4 mg PO DAILY [facility] Last Admin: 09/23/16 09:50 Dose: 0.4 mg Constitutional: Yes: Awake and alert, NAD Eyes: Yes: PERRL HENT: Yes: WNL Neck: Yes: WNL Cardiovascular: Yes: S1, S2 Respiratory: Yes: Diminished (bilaterally), On Nasal O2, Mildly Tachypnea Gastrointestinal: Yes: Normal Bowel Sounds. No: Tenderness ...Rectal Exam: Yes: Deferred Renal/: No: Colon Present Edema: Yes Edema: LLE: 2+, RLE: 2+ Peripheral Pulses WNL: Yes (+2 bilateral pedal pulses) Integumentary: Yes: Dry Neurological: Yes: Alert Psychiatric: Yes: WNL Labs: Laboratory Results - last 24 hr 09/22/16 09/22/16 09/22/16 19:11 20:07 20:07 WBC 4.3 RBC 4.49 Hgb 12.2 Hct 39.1 MCV 87.2 MCHC 31.2 L RDW 15.5 Plt Count 130 L D MPV 8.5 Neutrophils % 89.7 H D Lymphocytes % 4.1 L D Monocytes % 6.1 Eosinophils % 0.0 D Basophils % 0.1 INR 1.45 H PTT (Actin FS) 35.3 H Anticoagulation Therapy Puncture Site ABG pH ABG pCO2 at Pt Temp ABG pO2 at Pt Temp ABG HCO3 ABG O2 Sat (Measured) ABG O2 Content ABG Base Excess Zeeshan Test Carboxyhemoglobin Methemoglobin O2 Delivery Device Oxygen Flow Rate Vent Mode Vent Rate Mechanical Rate PEEP Pressure Support Vent Sodium Potassium Chloride Carbon Dioxide Anion Gap BUN Creatinine Creat Clearance w eGFR Random Glucose Lactic Acid 4.574 H* Calcium Phosphorus Magnesium Total Bilirubin AST ALT Alkaline Phosphatase Creatine Kinase Creatine Kinase Index CK-MB (CK-2) CK-MB (CK-2) Rel Index Troponin I B-Natriuretic Peptide Total Protein Albumin Hepatitis C Antibody 09/22/16 09/22/16 09/22/16 20:07 20:07 20:10 WBC RBC Hgb Hct MCV MCHC RDW Plt Count MPV Neutrophils % Lymphocytes % Monocytes % Eosinophils % Basophils % INR PTT (Actin FS) Anticoagulation Therapy Puncture Site Right radial ABG pH 7.28 L ABG pCO2 at Pt Temp 62.9 H* ABG pO2 at Pt Temp 130.0 H ABG HCO3 28.8 H ABG O2 Sat (Measured) 98.2 ABG O2 Content 15.3 ABG Base Excess 1.4 Zeeshan Test Positive Carboxyhemoglobin 0.9 Methemoglobin 1.4 O2 Delivery Device Ot Oxygen Flow Rate 40% Vent Mode St Vent Rate 14 Mechanical Rate Bipap PEEP 0.0 Pressure Support Vent 12/6 Sodium 142 Potassium 4.3 Chloride 99 Carbon Dioxide 34 H Anion Gap 9 BUN 33 H D Creatinine 2.0 H D Creat Clearance w eGFR 32.31 Random Glucose 92 Lactic Acid Calcium 8.6 Phosphorus Magnesium 3.0 H Total Bilirubin 0.7 D AST 2771 H ALT 1261 H D Alkaline Phosphatase 277 H D Creatine Kinase 589 H Creatine Kinase Index 2.9 CK-MB (CK-2) 16.926 H CK-MB (CK-2) Rel Index Cancelled Troponin I 4.00 H* B-Natriuretic Peptide 36642.16 H Total Protein 6.0 L Albumin 2.8 L Hepatitis C Antibody 09/23/16 09/23/16 09/23/16 00:30 00:30 00:30 WBC 4.3 RBC 4.30 Hgb 11.7 Hct 37.1 MCV 86.2 MCHC 31.4 L RDW 15.7 Plt Count 131 L MPV 7.9 Neutrophils % 92.7 H Lymphocytes % 4.4 L Monocytes % 2.8 L Eosinophils % 0.1 D Basophils % 0.0 INR PTT (Actin FS) 58.9 H D Anticoagulation Therapy Puncture Site ABG pH ABG pCO2 at Pt Temp ABG pO2 at Pt Temp ABG HCO3 ABG O2 Sat (Measured) ABG O2 Content ABG Base Excess Zeeshan Test Carboxyhemoglobin Methemoglobin O2 Delivery Device Oxygen Flow Rate Vent Mode Vent Rate Mechanical Rate PEEP Pressure Support Vent Sodium 141 Potassium 3.9 Chloride 97 L Carbon Dioxide 34 H Anion Gap 10 BUN 40 H D Creatinine 2.0 H Creat Clearance w eGFR 32.31 Random Glucose 230 H D Lactic Acid Calcium 8.0 L Phosphorus 6.9 H Magnesium 3.2 H Total Bilirubin 0.5 D AST 2989 H ALT 1281 H Alkaline Phosphatase 233 H Creatine Kinase Creatine Kinase Index CK-MB (CK-2) CK-MB (CK-2) Rel Index Troponin I B-Natriuretic Peptide Total Protein 5.5 L Albumin 2.7 L Hepatitis C Antibody 09/23/16 09/23/16 09/23/16 00:30 00:30 00:30 WBC RBC Hgb Hct MCV MCHC RDW Plt Count MPV Neutrophils % Lymphocytes % Monocytes % Eosinophils % Basophils % INR PTT (Actin FS) Anticoagulation Therapy Puncture Site ABG pH ABG pCO2 at Pt Temp ABG pO2 at Pt Temp ABG HCO3 ABG O2 Sat (Measured) ABG O2 Content ABG Base Excess Zeeshan Test Carboxyhemoglobin Methemoglobin O2 Delivery Device Oxygen Flow Rate Vent Mode Vent Rate Mechanical Rate PEEP Pressure Support Vent Sodium Potassium Chloride Carbon Dioxide Anion Gap BUN Creatinine Creat Clearance w eGFR Random Glucose Lactic Acid 2.026 H* Calcium Phosphorus Magnesium Total Bilirubin AST ALT Alkaline Phosphatase Creatine Kinase 663 H Creatine Kinase Index 3.4 CK-MB (CK-2) 21.744 H CK-MB (CK-2) Rel Index Cancelled Troponin I 5.07 H* B-Natriuretic Peptide Total Protein Albumin Hepatitis C Antibody 09/23/16 09/23/16 09/23/16 01:25 05:05 05:05 WBC RBC Hgb Hct MCV MCHC RDW Plt Count MPV Neutrophils % Lymphocytes % Monocytes % Eosinophils % Basophils % INR PTT (Actin FS) Anticoagulation Therapy Puncture Site Right radial ABG pH 7.29 L ABG pCO2 at Pt Temp 67.8 H* ABG pO2 at Pt Temp 97.9 D ABG HCO3 31.3 H ABG O2 Sat (Measured) 96.3 ABG O2 Content 14.7 L ABG Base Excess 3.6 H Zeeshan Test Positive Carboxyhemoglobin Methemoglobin O2 Delivery Device Nasal cannula Oxygen Flow Rate 2.0lpm Vent Mode Vent Rate Mechanical Rate PEEP 0.0 Pressure Support Vent Sodium Potassium Chloride Carbon Dioxide Anion Gap BUN Creatinine Creat Clearance w eGFR Random Glucose Lactic Acid 2.149 H* Calcium Phosphorus Magnesium Total Bilirubin AST ALT Alkaline Phosphatase Creatine Kinase Creatine Kinase Index CK-MB (CK-2) CK-MB (CK-2) Rel Index Troponin I B-Natriuretic Peptide Total Protein Albumin Hepatitis C Antibody Cancelled 09/23/16 09/23/16 07:45 08:15 WBC RBC Hgb Hct MCV MCHC RDW Plt Count MPV Neutrophils % Lymphocytes % Monocytes % Eosinophils % Basophils % INR PTT (Actin FS) Anticoagulation Therapy Y Puncture Site Left radial ABG pH 7.36 ABG pCO2 at Pt Temp 58.0 H ABG pO2 at Pt Temp 73.1 D ABG HCO3 31.6 H ABG O2 Sat (Measured) 93.3 ABG O2 Content 15.6 ABG Base Excess 5.2 H Zeeshan Test Positive Carboxyhemoglobin Methemoglobin O2 Delivery Device Bipap 12/6 Oxygen Flow Rate 25% Vent Mode Y Vent Rate Y Mechanical Rate Y PEEP Pressure Support Vent Y Sodium Potassium Chloride Carbon Dioxide Anion Gap BUN Creatinine Creat Clearance w eGFR Random Glucose Lactic Acid Calcium Phosphorus Magnesium Total Bilirubin AST ALT Alkaline Phosphatase Creatine Kinase 653 H Creatine Kinase Index CK-MB (CK-2) CK-MB (CK-2) Rel Index Troponin I 4.42 H* B-Natriuretic Peptide Total Protein Albumin Hepatitis C Antibody Assessment/Plan AMI AE of COPD Emphysema / asthma HLD Gastric CA s/p resection Active smoker CHF Influenza Elevated LFTs ENZO PLAN: IV Heparin ASA Medrol Check ECHO BD TX Smoking cessation counseling Tamiflu ABX Dr Berumen CCTime 35"
[2016-09-23] MEDS ORDERED: AZITHROMYCIN 250 MG TABLET (FP) PO SCH (20:00)
[2016-09-23] MEDS ORDERED: ATORVASTATIN CA 80 MG TABLET (FP) PO SCH (22:00)
[2016-09-23] MEDS ORDERED: CLOPIDOGREL BISULFATE 75 MG TABLET (FP) PO SCH (22:00)
[2016-09-23] MEDS: HEPARIN - 25,000 UNIT in SODIUM CHLORIDE 495 ML IV SCH (22:51)
[2016-09-24] MEDS ORDERED: PT OWN MED DRAWER 7, Y5N ONE ×2 (00:24→08:47)
[2016-09-24] MEDS: ALBUTEROL SO4 0.083% IH SOL 2.5 MG/3 ML VIAL.NEB. NEB SCH ×6 (02:09→22:17)
[2016-09-24] MEDS: SODIUM CHLORIDE 1,000 ML IV SCH (02:30)
[2016-09-24] MEDS: methylPREDNISolone NA SUCC 125 MG/2 ML VIAL IVPB SCH ×3 (04:01→21:32)
[2016-09-24 05:46] LABS: MEAN CELL VOLUME 84.4 fl (80-96); MEAN PLT VOLUME 8.8 fl (7.5-11.1); PLATELET COUNT 150 K/MM3 (134-434); RDW 15.1 % (11.9-15.9); WHITE BLOOD COUNT 11.9 K/mm3 (4.0-10.0)
[2016-09-24 06:17] LABS: ALBUMIN 2.5 g/dl (3.4-5.0); BILIRUBIN,TOTAL 0.4 mg/dL (0.2-1.0); CALCIUM 7.8 mg/dL (8.5-10.1); MAGNESIUM 2.8 mg/dL (1.8-2.4); PHOSPHOROUS 4.6 mg/dL (2.5-4.9); TOT PROT 5.5 g/dl (6.4-8.2)
[2016-09-24 06:42] LABS: TROPONIN I 3.66 ng/ml (0.00-0.05)
[2016-09-24 07:41] LABS: ALLENS TEST POSITIVE; ARTERIAL BLOOD GAS BASE EXCESS 7.2 meq/l (-2-2); ARTERIAL BLOOD GAS HCO3 33.7 meq/L (22-26); ARTERIAL BLOOD GAS PO2 88.5 mmHg (68-100); ARTERIAL BLOOD GAS pH 7.37 (7.35-7.45)
[2016-09-24 07:42] LABS: ART PUNCT SITE RIGHT RADIAL; LPM/O2% 40%; PT. ON O2? YES; TYPE OF O2 V/M
[2016-09-24] MEDS: CALCIUM ACETATE 667 MG CAPSULE (FP) PO SCH ×2 (08:40→17:46)
--- NOTE | 2016-09-24 09:11 | PN ---
Progress Note, Physician Chief Complaint: alert and oriented denies chest pain or sob Echo w/ normal LV fxn - Current Medication List Current Medications: Active Medications Albuterol Sulfate (Ventolin 0.083% Nebulizer Soln -) 1 amp NEB Q4HPO [facility] Last Admin: 09/24/16 06:09 Dose: 1 amp Atorvastatin Calcium (Lipitor -) 80 mg PO HS [facility] Last Admin: 09/23/16 22:36 Dose: 80 mg Azithromycin (Zithromax -) 250 mg PO DAILY@2000 [facility] Last Admin: 09/23/16 22:36 Dose: 250 mg Calcium Acetate (Phoslo -) 667 mg PO BIDWM [facility] Last Admin: 09/24/16 08:40 Dose: 667 mg Clopidogrel Bisulfate (Plavix -) 75 mg PO DAILY@2200 [facility] Last Admin: 09/23/16 22:36 Dose: 75 mg Heparin Sodium (Porcine) 25, (000 unit/ Sodium Chloride) 500 mls @ 16 mls/hr IV TITR [facility]; 800 UNIT/HR PRN Reason: Protocol Last Admin: 09/23/16 22:51 Dose: 16 mls/hr Vancomycin HCl 1,000 mg/ (Dextrose) 250 mls @ 250 mls/hr IVPB ONCE ONE Stop: 09/23/16 06:59 Sodium Chloride (Normal Saline -) 1,000 mls @ 50 mls/hr IV ASDIR [facility] Last Admin: 09/24/16 02:30 Dose: 50 mls/hr Ceftriaxone Sodium (Rocephin 1gm Ivpb (Pre-Docked)) 50 mls @ 100 mls/hr IVPB DAILY [facility] Last Admin: 09/23/16 11:05 Dose: 100 mls/hr Methylprednisolone Sodium Succinate (Solu-Medrol -) 60 mg IVPB Q8H-IV [facility] Last Admin: 09/24/16 04:01 Dose: 60 mg Metoprolol Tartrate (Lopressor -) 12.5 mg PO DAILY [facility] Last Admin: 09/23/16 09:51 Dose: 12.5 mg Non-Formulary Medication (Ipratropium [place] [Atrovent Hfa]) 12.9 gm IH PRN PRN PRN Reason: SHORTNESS OF BREATH Non-Formulary Medication (Lovastatin [Lovastatin]) 20 mg PO DAILY [facility] Oseltamivir Phosphate (Tamiflu -) 30 mg PO DAILY [facility] Last Admin: 09/23/16 10:12 Dose: 30 mg Potassium Chloride (Kcl Oral Solution -) 40 meq PO ONCE ONE Stop: 09/24/16 09:16 Tamsulosin HCl (Flomax -) 0.4 mg PO DAILY [facility] Last Admin: 09/23/16 09:50 Dose: 0.4 mg - Objective Vital Signs: Vital Signs Temperature 98.4 F 09/24/16 02:00 Pulse Rate 100 H 09/24/16 08:00 Respiratory Rate 18 09/24/16 08:00 Blood Pressure 145/93 09/24/16 08:00 O2 Sat by Pulse Oximetry (%) 100 09/23/16 21:00 Constitutional: Yes: No Distress Cardiovascular: Yes: Regular Rate and Rhythm Respiratory: Yes: CTA Bilaterally Gastrointestinal: Yes: Soft Edema: Yes Edema: LLE: 1+, RLE: 1+ Neurological: Yes: Alert Labs: CBC, BMP 09/24/16 05:00 09/24/16 05:00 INR, PTT INR 1.45 (0.82-1.09) H 09/22/16 20:07 Laboratory Tests 09/23/16 09/24/16 09/24/16 07:45 05:00 05:00 WBC 11.9 H D Hgb 11.4 L Plt Count 150 ABG pH ABG pCO2 at Pt Temp ABG O2 Sat (Measured) Oxygen Flow Rate Sodium 140 Potassium 3.5 BUN 50 H D Creatinine 2.0 H Creatine Kinase 653 H 655 H Troponin I 4.42 H* 3.66 H* 09/24/16 07:25 WBC Hgb Plt Count ABG pH 7.37 ABG pCO2 at Pt Temp 59.4 H ABG O2 Sat (Measured) 96.0 Oxygen Flow Rate 40% Sodium Potassium BUN Creatinine Creatine Kinase Troponin I - ....Imaging EKG: Image Reviewed (TELE: NSR) Assessment/Plan PNA Influenza Gastric Ca NSTEMI Abdominal aortic aneurysm REC: NSTEMI- Continue medical Rx. Nl LV fxn, asymptomatic. Consider stress MIBI when recovered from PNA/ Influenza. Gastric CA- Possibly metastatic. Was awaiting outpatient PET scan for pulmonary nodule, by report. PNA/Influenza- Continued rx as per Critical Care Team. Abdominal aortic aneurysm- By patient report under surveillance at [facility]. Will try to obtain prior reports.
[2016-09-24] MEDS ORDERED: POTASSIUM CHLORIDE 40 MEQ/30 ML UNIT DOSE CUP PO ONE (09:15)
--- NOTE | 2016-09-24 09:20 | PN ---
Progress Note, Physician History of Present Illness: patient seen and examined off bipap on nasal cannula doing well denies chest pain - Current Medication List Current Medications: Active Medications Albuterol Sulfate (Ventolin 0.083% Nebulizer Soln -) 1 amp NEB Q4HPO [facility] Last Admin: 09/24/16 06:09 Dose: 1 amp Atorvastatin Calcium (Lipitor -) 80 mg PO HS [facility] Last Admin: 09/23/16 22:36 Dose: 80 mg Azithromycin (Zithromax -) 250 mg PO DAILY@2000 [facility] Last Admin: 09/23/16 22:36 Dose: 250 mg Calcium Acetate (Phoslo -) 667 mg PO BIDWM [facility] Last Admin: 09/24/16 08:40 Dose: 667 mg Clopidogrel Bisulfate (Plavix -) 75 mg PO DAILY@2200 [facility] Last Admin: 09/23/16 22:36 Dose: 75 mg Heparin Sodium (Porcine) 25, (000 unit/ Sodium Chloride) 500 mls @ 16 mls/hr IV TITR [facility]; 800 UNIT/HR PRN Reason: Protocol Last Admin: 09/23/16 22:51 Dose: 16 mls/hr Vancomycin HCl 1,000 mg/ (Dextrose) 250 mls @ 250 mls/hr IVPB ONCE ONE Stop: 09/23/16 06:59 Sodium Chloride (Normal Saline -) 1,000 mls @ 50 mls/hr IV ASDIR [facility] Last Admin: 09/24/16 02:30 Dose: 50 mls/hr Ceftriaxone Sodium (Rocephin 1gm Ivpb (Pre-Docked)) 50 mls @ 100 mls/hr IVPB DAILY [facility] Last Admin: 09/23/16 11:05 Dose: 100 mls/hr Methylprednisolone Sodium Succinate (Solu-Medrol -) 60 mg IVPB Q8H-IV [facility] Last Admin: 09/24/16 04:01 Dose: 60 mg Metoprolol Tartrate (Lopressor -) 12.5 mg PO DAILY [facility] Last Admin: 09/23/16 09:51 Dose: 12.5 mg Non-Formulary Medication (Ipratropium Mifflin [Atrovent Hfa]) 12.9 gm IH PRN PRN PRN Reason: SHORTNESS OF BREATH Non-Formulary Medication (Lovastatin [Lovastatin]) 20 mg PO DAILY [facility] Oseltamivir Phosphate (Tamiflu -) 30 mg PO DAILY [facility] Last Admin: 09/23/16 10:12 Dose: 30 mg Potassium Chloride (Kcl Oral Solution -) 40 meq PO ONCE ONE Stop: 09/24/16 09:16 Tamsulosin HCl (Flomax -) 0.4 mg PO DAILY [facility] Last Admin: 09/23/16 09:50 Dose: 0.4 mg - Objective Vital Signs: Vital Signs Temperature 98.4 F 09/24/16 02:00 Pulse Rate 100 H 09/24/16 08:00 Respiratory Rate 18 09/24/16 08:00 Blood Pressure 145/93 09/24/16 08:00 O2 Sat by Pulse Oximetry (%) 100 09/23/16 21:00 Constitutional: Yes: Cachectic, Thin Eyes: Yes: EOM Intact HENT: Yes: Atraumatic Neck: Yes: Supple Cardiovascular: Yes: Regular Rate and Rhythm Respiratory: Yes: CTA Bilaterally, Poor Air Entry, distant breath sounds Other ( barrell chest) Gastrointestinal: Yes: Soft Edema: Yes Edema: LLE: 2+, RLE: 2+ Labs: CBC, BMP 09/24/16 05:00 09/24/16 05:00 INR, PTT INR 1.45 (0.82-1.09) H 09/22/16 20:07 Assessment/Plan Pt is an 81yr old man with PMHx of COPD (emphysema and asthma), HLD, gastric CA s/p resection. Of note, pt current every day smoker, family reports small lung nodule with pending PET scan. Pt now in the ICU for management of COPD exacerbation in setting of influenza, new onset CHF in setting of NSTEMI, significantly elevated LFTs and ENZO. Pulm: hypercapeniec hypoxemic acute resp failure secondary to COPD: improving Bipap PRN O2 sat goal 88-92% Nebulizers standing and PRN IV steroids will taper today Needs to stop smoking-counselled patient with positive influenza Cardiac: NSTEMI (repeat troponin trending up) possible new onset chf Cardiac consulted appreciated continue hep gtt Monitor PTT q6h Troponin trending down now echo noted Plavix statin BB will need intervention in near future medical management for now AAA: ABD US noted Primary team [facility] to see if the size is stable as this is where he is followed for the AAA. ID: Influenza Tamiflu resp precaution Ceftriaxone/Azithro Renal: ENZO (creatinine 1.0 -->2.0) Consult Cr stable at 2 might be new baseline Gentle hydration as tolerated Strict I/Os Metabolic acidosis secondary to elevated lactic acid-resolved GI: Significantly elevated LFTs-improving likely from hypotensive hepatopathy (shock liver) will trend LFTs Neuro: Pain management PRN FEN: IVF Replete potassium Sodium/fat controlled diet PPx: No GI ppx needed Hep gtt PT consult
[2016-09-24] MEDS: CEFTRIAXONE 50 ML IVPB SCH (09:39)
[2016-09-24] MEDS: TAMSULOSIN HCL 0.4 MG CAP.ER.24H (FP) PO SCH (09:42)
[2016-09-24] MEDS: OSELTAMIVIR PHOSPHATE 30 MG CAPSULE PO SCH (09:42)
[2016-09-24] MEDS: METOPROLOL TARTRATE 25 MG TABLET (FP) PO SCH (09:42)
--- NOTE | 2016-09-24 10:31 | PN ---
Physical Exam: SUBJECTIVE: Patient seen and examined at bedside in ICU. Pt denies feels comfortable on 3L NC while eating and is saturating well but prefers to go back on venturimask after eating. He denies any cough, CP, SOB, trouble eating, abd pain, N/V/F/C. Says he slept well last night and used bipap overnight. OBJECTIVE: Vital Signs Temperature 98.4 F 09/24/16 02:00 Pulse Rate 100 H 09/24/16 08:00 Respiratory Rate 18 09/24/16 08:00 Blood Pressure 145/93 09/24/16 08:00 O2 Sat by Pulse Oximetry (%) 100 09/23/16 21:00 GENERAL: The patient is awake, alert, and fully oriented, in no acute distress. HEAD: Normal with no signs of trauma. EYES: sclera anicteric, conjunctiva clear. No ptosis. ENT: moist mucous membranes. NECK: Trachea midline, full range of motion LUNGS: Diminished breath sounds B/L. HEART: Regular rate and rhythm, S1, S2 without murmur, rub or gallop. ABDOMEN: Soft, nontender, nondistended, normoactive bowel sounds, no guarding, no rebound, no hepatosplenomegaly, no masses. EXTREMITIES: 2+ pulses, warm, well-perfused, no edema. NEUROLOGICAL: Normal speech, gait not observed. PSYCH: Normal mood, normal affect. SKIN: Warm, dry, normal turgor, no rashes or lesions noted Laboratory Results - last 24 hr 09/23/16 09/23/16 09/23/16 00:30 00:30 02:00 WBC RBC Hgb Hct MCV MCHC RDW Plt Count MPV Neutrophils % Lymphocytes % Monocytes % PTT (Actin FS) Puncture Site ABG pH ABG pCO2 at Pt Temp ABG pO2 at Pt Temp ABG HCO3 ABG O2 Sat (Measured) ABG O2 Content ABG Base Excess Zeeshan Test O2 Delivery Device Oxygen Flow Rate Sodium Potassium Chloride Carbon Dioxide Anion Gap BUN Creatinine Creat Clearance w eGFR Random Glucose Lactic Acid Calcium Phosphorus Magnesium Total Bilirubin AST ALT Alkaline Phosphatase Creatine Kinase Creatine Kinase Index 3.4 CK-MB (CK-2) 21.744 H CK-MB (CK-2) Rel Index Cancelled Troponin I Total Protein Albumin Hepatitis A Ab Total Positive Hep Bs Antigen Negative Hep Bs Antibody Non reactive Hep B Core Total Ab Negative Hepatitis C Antibody 0.2 09/23/16 09/23/16 09/24/16 05:05 05:05 05:00 WBC RBC Hgb Hct MCV MCHC RDW Plt Count MPV Neutrophils % Lymphocytes % Monocytes % PTT (Actin FS) Puncture Site ABG pH ABG pCO2 at Pt Temp ABG pO2 at Pt Temp ABG HCO3 ABG O2 Sat (Measured) ABG O2 Content ABG Base Excess Zeeshan Test O2 Delivery Device Oxygen Flow Rate Sodium 140 Potassium 3.5 Chloride 97 L Carbon Dioxide 35 H Anion Gap 8 BUN 50 H D Creatinine 2.0 H Creat Clearance w eGFR 32.31 Random Glucose 124 H D Lactic Acid 2.149 H* Calcium 7.8 L Phosphorus 4.6 D Magnesium 2.8 H Total Bilirubin 0.4 AST 1254 H ALT 966 H D Alkaline Phosphatase 187 H Creatine Kinase 655 H Creatine Kinase Index 3.9 CK-MB (CK-2) 25.552 H CK-MB (CK-2) Rel Index Troponin I 3.66 H* Total Protein 5.5 L Albumin 2.5 L Hepatitis A Ab Total Hep Bs Antigen Hep Bs Antibody Hep B Core Total Ab Hepatitis C Antibody Cancelled 09/24/16 09/24/16 09/24/16 05:00 05:00 05:00 WBC 11.9 H D RBC 4.21 Hgb 11.4 L Hct 35.5 MCV 84.4 MCHC 32.0 RDW 15.1 Plt Count 150 MPV 8.8 D Neutrophils % 97.0 H Lymphocytes % 2.0 L D Monocytes % 1.0 L PTT (Actin FS) 199.6 H D Puncture Site ABG pH ABG pCO2 at Pt Temp ABG pO2 at Pt Temp ABG HCO3 ABG O2 Sat (Measured) ABG O2 Content ABG Base Excess Zeeshan Test O2 Delivery Device Oxygen Flow Rate Sodium Potassium Chloride Carbon Dioxide Anion Gap BUN Creatinine Creat Clearance w eGFR Random Glucose Lactic Acid 1.798 Calcium Phosphorus Magnesium Total Bilirubin AST ALT Alkaline Phosphatase Creatine Kinase Creatine Kinase Index CK-MB (CK-2) CK-MB (CK-2) Rel Index Troponin I Total Protein Albumin Hepatitis A Ab Total Hep Bs Antigen Hep Bs Antibody Hep B Core Total Ab Hepatitis C Antibody 09/24/16 09/24/16 05:00 07:25 WBC RBC Hgb Hct MCV MCHC RDW Plt Count MPV Neutrophils % Lymphocytes % Monocytes % PTT (Actin FS) Puncture Site Right radial ABG pH 7.37 ABG pCO2 at Pt Temp 59.4 H ABG pO2 at Pt Temp 88.5 D ABG HCO3 33.7 H ABG O2 Sat (Measured) 96.0 ABG O2 Content 15.6 ABG Base Excess 7.2 H Zeeshan Test Positive O2 Delivery Device V/m Oxygen Flow Rate 40% Sodium Potassium Chloride Carbon Dioxide Anion Gap BUN Creatinine Creat Clearance w eGFR Random Glucose Lactic Acid Calcium Phosphorus Magnesium Total Bilirubin AST ALT Alkaline Phosphatase Creatine Kinase Creatine Kinase Index CK-MB (CK-2) CK-MB (CK-2) Rel Index Cancelled Troponin I Total Protein Albumin Hepatitis A Ab Total Hep Bs Antigen Hep Bs Antibody Hep B Core Total Ab Hepatitis C Antibody Microbiology 09/22/16 20:07 Blood - Peripheral Venous Blood Culture - Preliminary NO GROWTH OBTAINED AFTER 24 HOURS, INCUBATION TO CONTINUE FOR 4 DAYS. 09/22/16 20:07 Blood - Peripheral Venous Blood Culture - Preliminary NO GROWTH OBTAINED AFTER 24 HOURS, INCUBATION TO CONTINUE FOR 4 DAYS. 09/23/16 07:00 Urine For Antigen Detection Legionella Antigen - Final 09/23/16 07:00 Urine For Antigen Detection Streptococcus pneumoniae Antigen (M - Final 09/22/16 19:22 Nasopharyngeal Swab Influenza Types A,B Antigen (ELLY) - Final - INFLUENZA A Ag detected 09/22/16 19:22 Nasopharyngeal Swab - Final Active Medications Generic Name Dose Route Start Last Admin Trade Name Freq PRN Reason Stop Dose Admin Albuterol Sulfate 1 amp 09/23/16 02:15 09/24/16 06:09 Ventolin 0.083% Nebulizer Soln - NEB 1 amp Q4HPO [facility] Administration Atorvastatin Calcium 80 mg 09/23/16 22:00 09/23/16 22:36 Lipitor - PO 80 mg HS [facility] Administration Azithromycin 250 mg 09/23/16 20:00 09/23/16 22:36 Zithromax - PO 250 mg DAILY@2000 [facility] Administration Calcium Acetate 667 mg 09/23/16 08:00 09/24/16 08:40 Phoslo - PO 667 mg BIDWM [facility] Administration Clopidogrel Bisulfate 75 mg 09/23/16 22:00 09/23/16 22:36 Plavix - PO 75 mg DAILY@2200 [facility] Administration Heparin Sodium (Porcine) 25, 500 mls @ 16 mls/hr 09/22/16 22:00 09/23/16 22:51 000 unit/ Sodium Chloride IV 16 mls/hr TITR [facility] Administration Protocol 800 UNIT/HR Sodium Chloride 1,000 mls @ 50 mls/hr 09/23/16 02:30 09/24/16 02:30 Normal Saline - IV 50 mls/hr ASDIR [facility] Administration Ceftriaxone Sodium 50 mls @ 100 mls/hr 09/23/16 11:15 09/24/16 09:39 Rocephin 1gm Ivpb (Pre-Docked) IVPB 100 mls/hr DAILY [facility] Administration Methylprednisolone Sodium Succinate 60 mg 09/24/16 22:00 09/24/16 09:41 Solu-Medrol - IVPB 60 mg Q12H [facility] Administration Metoprolol Tartrate 12.5 mg 09/23/16 10:00 09/24/16 09:42 Lopressor - PO 12.5 mg DAILY [facility] Administration Oseltamivir Phosphate 30 mg 09/23/16 10:00 09/24/16 09:42 Tamiflu - PO 30 mg DAILY [facility] Administration Tamsulosin HCl 0.4 mg 09/23/16 10:00 09/24/16 09:42 Flomax - PO 0.4 mg DAILY [facility] Administration ASSESSMENT/PLAN: 81 yo M with h/o COPD, emphysema, asthma, current smoker, abdominal aneurysm, HLD, gastric CA s/p resection and radiation, BPH, recent diagnosis of left lung nodule admitted to ICU for severe sepsis secondary to flu in the setting of COPD exacerbation. -Sepsis secondary to flu -c/w tamiflu 30mg po qd; zithromax 250 mg po qd (day 2 today); rocephin 1 gm IV qd -WBC: 11.9 w/neutrophilic shift -Lactic acid trending down, 1.798 today -c/w NS @ 50 ml/hr -Leukocytosis -WBC 11.9 today w/neutrophilic shift -secondary to sepsis -c/w zithromax, rocephin -ID on board -Acute hypercapnic respiratory failure; improving; on venturimask during day, oxygenating well with 3L NC as well. -secondary to COPD -c/w ventolin -c/w solu-medrol 60 mg IV q12h -bipap PRN -AB.36/59.4/88.5 -Elevated pCO2 secondary to COPD most likely -pt is AAOX3 -NSTEMI -will require cardiac stress test once recovered from pna/flu -ECHO: trace TR, trace pulmonic valve regurg, otherwise unremarkable (nl LVSF ) -c/w heparin drip as per protocol, recheck PTT -Trops trending down -c/w clopidogrel 75 mg PO qd -Spoke with PCP Dr. Rdz who states he had stress test done on 05/10/16 which was normal -Transaminitis most likely secondary to sepsis -trending down, continue to monitor -ENZO secondary to sepsis most likely -BUN/Cr 50/2 -BUN trending up may be secondary to solumedrol use -AAA -Abd Aorta U/S: mid abd aorta: 4.3x4.5 cm in diameter distal abd aorta: 4.9x4.4 cm in diameter -Spoke with pt's PCP Dr. Rdz who says they've been tracking his AAA for years and last U/S was done on 01/06/16 which showed an abd aorta 4.9 cm in diameter. -CHF, new onset most likely -currently not fluid overloaded, monitor I/Os -BPH -c/w flomax 0.4 mg PO qd -PPx -DVT: on Heparin drip -FEN -NS@50 ml/hr -Fat/Sodium controlled diet -Will get dietary on board -Solange leyva -Dispo: -Can be transferred to tele. Problem List - Problems (1) Acute renal insufficiency Code(s): N28.9 - DISORDER OF KIDNEY AND URETER, UNSPECIFIED (2) CHF exacerbation Code(s): I50.9 - HEART FAILURE, UNSPECIFIED (3) COPD exacerbation Code(s): J44.1 - CHRONIC OBSTRUCTIVE PULMONARY DISEASE W (ACUTE) EXACERBATION (4) Elevated troponin Code(s): R79.89 - OTHER SPECIFIED ABNORMAL FINDINGS OF BLOOD CHEMISTRY (5) NSTEMI (non-ST elevated myocardial infarction) Code(s): I21.4 - NON-ST ELEVATION (NSTEMI) MYOCARDIAL INFARCTION (6) Severe sepsis Code(s): A41.9 - SEPSIS, UNSPECIFIED ORGANISM R65.20 - SEVERE SEPSIS WITHOUT SEPTIC SHOCK Visit type - Emergency Visit Emergency Visit: Yes ED Registration Date: 09/22/16 Care time: The patient presented to the Emergency Department on the above date and was hospitalized for further evaluation of their emergent condition. - New Patient This patient is new to me today: Yes Date on this admission: 09/24/16 - Critical Care Critical Care patient: Yes Total Critical Care Time (in minutes): 35 Critical Care Statement: The care of this patient involved high complexity decision making to prevent further life threatening deterioration of the patient 's condition and/or to evalute & treat vital organ system(s) failure or risk of failure.
--- NOTE | 2016-09-24 11:49 | PN ---
Teaching Attending Note Name of Resident: Alexander Herrera ATTENDING PHYSICIAN STATEMENT I saw and evaluated the patient. I reviewed the resident's note and discussed the case with the resident. I agree with the resident's findings and plan as documented. SUBJECTIVE: Patient seen and examined in the ICU. Awake and alert, currently off BiPAP. Denies CP or SOB. Some dry cough. Intake & Output 09/21/16 09/22/16 09/23/16 09/24/16 23:59 23:59 23:59 23:59 Intake Total 1979 792 Output Total 500 900 Balance 1479 -108 Weight 143 lb 4.807 oz 94 lb 5 oz 94 lb 8 oz Last Vital Signs Temp Pulse Resp BP Pulse Ox 98.4 F 85 20 140/90 100 09/24/16 02:00 09/24/16 10:44 09/24/16 10:00 09/24/16 10:00 09/24/16 10:44 Active Medications Albuterol Sulfate (Ventolin 0.083% Nebulizer Soln -) 1 amp NEB Q4HPO [facility] Last Admin: 09/24/16 10:45 Dose: 1 amp Atorvastatin Calcium (Lipitor -) 80 mg PO HS [facility] Last Admin: 09/23/16 22:36 Dose: 80 mg Azithromycin (Zithromax -) 250 mg PO DAILY@2000 [facility] Last Admin: 09/23/16 22:36 Dose: 250 mg Calcium Acetate (Phoslo -) 667 mg PO BIDWM [facility] Last Admin: 09/24/16 08:40 Dose: 667 mg Clopidogrel Bisulfate (Plavix -) 75 mg PO DAILY@2200 [facility] Last Admin: 09/23/16 22:36 Dose: 75 mg Heparin Sodium (Porcine) 25, (000 unit/ Sodium Chloride) 500 mls @ 16 mls/hr IV TITR [facility]; 800 UNIT/HR PRN Reason: Protocol Last Titration: 09/24/16 08:00 Dose: 500 unit/hr Sodium Chloride (Normal Saline -) 1,000 mls @ 50 mls/hr IV ASDIR [facility] Last Admin: 09/24/16 02:30 Dose: 50 mls/hr Ceftriaxone Sodium (Rocephin 1gm Ivpb (Pre-Docked)) 50 mls @ 100 mls/hr IVPB DAILY [facility] Last Admin: 09/24/16 09:39 Dose: 100 mls/hr Methylprednisolone Sodium Succinate (Solu-Medrol -) 60 mg IVPB Q12H [facility] Last Admin: 09/24/16 09:41 Dose: 60 mg Metoprolol Tartrate (Lopressor -) 12.5 mg PO DAILY [facility] Last Admin: 09/24/16 09:42 Dose: 12.5 mg Oseltamivir Phosphate (Tamiflu -) 30 mg PO DAILY [facility] Last Admin: 09/24/16 09:42 Dose: 30 mg Tamsulosin HCl (Flomax -) 0.4 mg PO DAILY [facility] Last Admin: 09/24/16 09:42 Dose: 0.4 mg Constitutional: Yes: Awake and alert, NAD Eyes: Yes: PERRL HENT: Yes: WNL Neck: Yes: WNL Cardiovascular: Yes: S1, S2 Respiratory: Yes: Diminished at the bases, On Nasal O2, Mildly Tachypnea Gastrointestinal: Yes: Normal Bowel Sounds. No: Tenderness ...Rectal Exam: Yes: Deferred Renal/: No: Colon Present Edema: Yes Edema: LLE: 2+, RLE: 2+ Peripheral Pulses WNL: Yes (+2 bilateral pedal pulses) Integumentary: Yes: Dry Neurological: Yes: Alert Psychiatric: Yes: WNL Labs: Laboratory Results - last 24 hr 09/23/16 09/23/16 09/23/16 00:30 00:30 02:00 WBC RBC Hgb Hct MCV MCHC RDW Plt Count MPV Neutrophils % Lymphocytes % Monocytes % PTT (Actin FS) Puncture Site ABG pH ABG pCO2 at Pt Temp ABG pO2 at Pt Temp ABG HCO3 ABG O2 Sat (Measured) ABG O2 Content ABG Base Excess Zeeshan Test O2 Delivery Device Oxygen Flow Rate Sodium Potassium Chloride Carbon Dioxide Anion Gap BUN Creatinine Creat Clearance w eGFR Random Glucose Lactic Acid Calcium Phosphorus Magnesium Total Bilirubin AST ALT Alkaline Phosphatase Creatine Kinase Creatine Kinase Index 3.4 CK-MB (CK-2) 21.744 H CK-MB (CK-2) Rel Index Cancelled Troponin I Total Protein Albumin Hepatitis A Ab Total Positive Hep Bs Antigen Negative Hep Bs Antibody Non reactive Hep B Core Total Ab Negative Hepatitis C Antibody 0.2 09/23/16 09/24/16 09/24/16 05:05 05:00 05:00 WBC RBC Hgb Hct MCV MCHC RDW Plt Count MPV Neutrophils % Lymphocytes % Monocytes % PTT (Actin FS) Puncture Site ABG pH ABG pCO2 at Pt Temp ABG pO2 at Pt Temp ABG HCO3 ABG O2 Sat (Measured) ABG O2 Content ABG Base Excess Zeeshan Test O2 Delivery Device Oxygen Flow Rate Sodium 140 Potassium 3.5 Chloride 97 L Carbon Dioxide 35 H Anion Gap 8 BUN 50 H D Creatinine 2.0 H Creat Clearance w eGFR 32.31 Random Glucose 124 H D Lactic Acid 2.149 H* 1.798 Calcium 7.8 L Phosphorus 4.6 D Magnesium 2.8 H Total Bilirubin 0.4 AST 1254 H ALT 966 H D Alkaline Phosphatase 187 H Creatine Kinase 655 H Creatine Kinase Index 3.9 CK-MB (CK-2) 25.552 H CK-MB (CK-2) Rel Index Troponin I 3.66 H* Total Protein 5.5 L Albumin 2.5 L Hepatitis A Ab Total Hep Bs Antigen Hep Bs Antibody Hep B Core Total Ab Hepatitis C Antibody 09/24/16 09/24/16 09/24/16 05:00 05:00 05:00 WBC 11.9 H D RBC 4.21 Hgb 11.4 L Hct 35.5 MCV 84.4 MCHC 32.0 RDW 15.1 Plt Count 150 MPV 8.8 D Neutrophils % 97.0 H Lymphocytes % 2.0 L D Monocytes % 1.0 L PTT (Actin FS) 199.6 H D Puncture Site ABG pH ABG pCO2 at Pt Temp ABG pO2 at Pt Temp ABG HCO3 ABG O2 Sat (Measured) ABG O2 Content ABG Base Excess Zeeshan Test O2 Delivery Device Oxygen Flow Rate Sodium Potassium Chloride Carbon Dioxide Anion Gap BUN Creatinine Creat Clearance w eGFR Random Glucose Lactic Acid Calcium Phosphorus Magnesium Total Bilirubin AST ALT Alkaline Phosphatase Creatine Kinase Creatine Kinase Index CK-MB (CK-2) CK-MB (CK-2) Rel Index Cancelled Troponin I Total Protein Albumin Hepatitis A Ab Total Hep Bs Antigen Hep Bs Antibody Hep B Core Total Ab Hepatitis C Antibody 09/24/16 07:25 WBC RBC Hgb Hct MCV MCHC RDW Plt Count MPV Neutrophils % Lymphocytes % Monocytes % PTT (Actin FS) Puncture Site Right radial ABG pH 7.37 ABG pCO2 at Pt Temp 59.4 H ABG pO2 at Pt Temp 88.5 D ABG HCO3 33.7 H ABG O2 Sat (Measured) 96.0 ABG O2 Content 15.6 ABG Base Excess 7.2 H Zeeshan Test Positive O2 Delivery Device V/m Oxygen Flow Rate 40% Sodium Potassium Chloride Carbon Dioxide Anion Gap BUN Creatinine Creat Clearance w eGFR Random Glucose Lactic Acid Calcium Phosphorus Magnesium Total Bilirubin AST ALT Alkaline Phosphatase Creatine Kinase Creatine Kinase Index CK-MB (CK-2) CK-MB (CK-2) Rel Index Troponin I Total Protein Albumin Hepatitis A Ab Total Hep Bs Antigen Hep Bs Antibody Hep B Core Total Ab Hepatitis C Antibody Assessment/Plan AMI AE of COPD URI Emphysema / asthma HLD Gastric CA s/p resection Active smoker CHF Influenza Elevated LFTs ENZO PLAN: IV Heparin ASA Taper Medrol BD TX Smoking cessation counseling Tamiflu D/C Rocephin PO Zithromax Dr Berumen CCTime 35"
--- NOTE | 2016-09-24 12:10 | PN ---
Teaching Attending Note Name of Resident: Srikanth Aguirre ATTENDING PHYSICIAN STATEMENT I saw and evaluated the patient. I reviewed the resident's note and discussed the case with the resident. I agree with the resident's findings and plan as documented. SUBJECTIVE:states breathing has improved. feels mild dyspnic at rest but improves with oxygen. cough has improved. no repeated episodes of chest pressure. deneis fever, chills, N/V/C/D OBJECTIVE: Last Vital Signs Temp Pulse Resp BP Pulse Ox 98.4 F 85 20 140/90 100 09/24/16 02:00 09/24/16 10:44 09/24/16 10:00 09/24/16 10:00 09/24/16 10:44 General NAD, cachectic CV S1 S2 RRR no murmur/rub/gallop no chest wall tenderness Lungs CTA B/L no wheezing/rales/rhonchi poor inspiratory effort Abdomen soft NT/ND, tympanic Extremities trace pitting edema ASSESSMENT AND PLAN: 81yo M with PMH COPD, Dyslipidemia, gastric ca s/p Rtx/chemo and gastric resection (2012) and BPH presented to the ER and was admitted for further evaluation of their emergent condition 1. NSTEMI-likely demand ischemia. trop peaked at 5. on asa/plavix/hep ggt. as per PMD had stress test 5 months ago which was negative. Echo with no WMA. will possibly still require ischemic eval. cardio on board. 2. acute hypercapnic respiratory distress-possible due to PNA and flu. saturating well off bipap. possible chronic CO2 retention from COPD. currently on Azithromycin. titrate down steroids. bipap prn. 3. AAA- multiple here seen with largest 4.9cm, u/s done by PMD on 01/06/16 shows same dimensions. cont surveillance 4. sepsis due to PNA and Influenza A- afebrile, lactic acidosis resolved. curently on Azithromycin/tamiflu. f/u official cultures. ID on board 5. ENZO- likely due to sepsis- stable. possible this is old. good UOP avoid nephrotoxic medications 6. Transaminitis- possibly sepsis. hepatitis panel pending. pt denies tylenol use. u/.s negative for chronic disease or mets 7. BPH- flomax 8. DVT ppx- hep ggt 9. stable for transfer to [facility] for continuous cardiac monitoring The care of this patient involved high complexity decision making to prevent further life threatening deterioration of the patient's condition and/or to evaluate & treat vital organ system(s) failure or risk of failure. critical care time 40 minutes
--- NOTE | 2016-09-24 13:11 | PN ---
Progress Note, Physician History of Present Illness: Awake, alert Appears less dyspneic No c/o chest pain/ dyspnea/ cough No c/o fever/ chills Afebrile, WBC elevated on steroids - Current Medication List Current Medications: Active Medications Albuterol Sulfate (Ventolin 0.083% Nebulizer Soln -) 1 amp NEB Q4HPO [facility] Last Admin: 09/24/16 10:45 Dose: 1 amp Atorvastatin Calcium (Lipitor -) 80 mg PO HS [facility] Last Admin: 09/23/16 22:36 Dose: 80 mg Azithromycin (Zithromax -) 250 mg PO DAILY@2000 [facility] Last Admin: 09/23/16 22:36 Dose: 250 mg Calcium Acetate (Phoslo -) 667 mg PO BIDWM [facility] Last Admin: 09/24/16 08:40 Dose: 667 mg Clopidogrel Bisulfate (Plavix -) 75 mg PO DAILY@2200 [facility] Last Admin: 09/23/16 22:36 Dose: 75 mg Heparin Sodium (Porcine) 25, (000 unit/ Sodium Chloride) 500 mls @ 16 mls/hr IV TITR [facility]; 800 UNIT/HR PRN Reason: Protocol Last Titration: 09/24/16 08:00 Dose: 500 unit/hr Sodium Chloride (Normal Saline -) 1,000 mls @ 50 mls/hr IV ASDIR [facility] Last Admin: 09/24/16 02:30 Dose: 50 mls/hr Ceftriaxone Sodium (Rocephin 1gm Ivpb (Pre-Docked)) 50 mls @ 100 mls/hr IVPB DAILY [facility] Last Admin: 09/24/16 09:39 Dose: 100 mls/hr Methylprednisolone Sodium Succinate (Solu-Medrol -) 60 mg IVPB Q12H [facility] Last Admin: 09/24/16 09:41 Dose: 60 mg Metoprolol Tartrate (Lopressor -) 12.5 mg PO DAILY [facility] Last Admin: 09/24/16 09:42 Dose: 12.5 mg Oseltamivir Phosphate (Tamiflu -) 30 mg PO DAILY [facility] Last Admin: 09/24/16 09:42 Dose: 30 mg Tamsulosin HCl (Flomax -) 0.4 mg PO DAILY [facility] Last Admin: 09/24/16 09:42 Dose: 0.4 mg - Objective Vital Signs: Vital Signs Temperature 98.4 F 09/24/16 02:00 Pulse Rate 85 01/13/17 10:44 Respiratory Rate 20 09/24/16 10:00 Blood Pressure 140/90 09/24/16 10:00 O2 Sat by Pulse Oximetry (%) 100 09/24/16 10:44 Constitutional: Yes: No Distress, Cachectic Eyes: Yes: Conjunctiva Clear Cardiovascular: Yes: Regular Rate and Rhythm, S1, S2 Respiratory: Yes: Diminished Gastrointestinal: Yes: Normal Bowel Sounds, Soft. No: Tenderness Edema: No Labs: CBC, BMP 09/24/16 05:00 09/24/16 05:00 INR, PTT INR 1.45 (0.82-1.09) H 09/22/16 20:07 Assessment/Plan Acute influenza A Exacerbation COPD Possible pneumonia Leukocytosis Azotemia Elevated LFTs-improved Hx lung nodule Continue Tamiflu, adjusted for CrCl Continue zithromax/ ceftriaxone
[2016-09-24] MEDS: NICOTINE 21 MG/24 HOURS TOPICAL PATCH TD SCH (14:41)
[2016-09-24] MEDS ORDERED: HEPARIN - 25,000 UNIT in SODIUM CHLORIDE 495 ML IV SCH (15:21)
[2016-09-24] MEDS ORDERED: SODIUM CHLORIDE 1,000 ML IV SCH (15:21)
[2016-09-24] MEDS ORDERED: VANCOMYCIN 1,000 MG in DEXTROSE 5%-WATER - 250 ML IVPB ONE (15:21)
[2016-09-24] MEDS ORDERED: HEPARIN NA (PORCINE) 5,000 UNITS/ML 1ML VIAL IVPUSH PRN ×2 (15:21)
[2016-09-24] MEDS: ATORVASTATIN CA 80 MG TABLET (FP) PO SCH (21:32)
[2016-09-24] MEDS: CLOPIDOGREL BISULFATE 75 MG TABLET (FP) PO SCH (21:37)
[2016-09-24] MEDS: AZITHROMYCIN 250 MG TABLET (FP) PO SCH (22:40)
[2016-09-25] MEDS: ALBUTEROL SO4 0.083% IH SOL 2.5 MG/3 ML VIAL.NEB. NEB SCH ×6 (02:21→21:51)
[2016-09-25 06:10] LABS: MCH 27.4 pg (25.7-33.7); MCHC 32.1 g/dl (32.0-35.9); MEAN CELL VOLUME 85.2 fl (80-96); MEAN PLT VOLUME 8.6 fl (7.5-11.1); PLATELET COUNT 127 K/MM3 (134-434); RDW 15.4 % (11.9-15.9); WHITE BLOOD COUNT 10.6 K/mm3 (4.0-10.0)
[2016-09-25 07:14] LABS: ALBUMIN 2.4 g/dl (3.4-5.0); BILIRUBIN,TOTAL 0.3 mg/dL (0.2-1.0); CALCIUM 7.9 mg/dL (8.5-10.1); CREATININE 1.4 mg/dL (0.7-1.3); TOT PROT 5.1 g/dl (6.4-8.2)
--- NOTE | 2016-09-25 07:40 | PN ---
Progress Note (short form) - Note Progress Note: PULM/CCM Patient seen and examined in the ICU. Stable, no distress had some issues with sundowning last night but improved mental status this am Cr and transaminitis downtrending nicely Vital Signs Temp 97.9 F 09/25/16 06:00 Pulse 85 09/25/16 06:00 Resp 20 09/25/16 06:00 BP 152/85 09/25/16 06:00 Pulse Ox 98 09/24/16 21:51 Intake & Output 09/24/16 09/24/16 09/25/16 11:59 23:59 11:59 Intake Total 792 1200 220 Output Total 900 200 Balance -108 1000 220 Weight 42.864 kg 43.715 kg Intake: IV 792 320 120 Heparin - 25,000 Unit In 192 Normal Saline - 495 ml @ 800 UNIT/HR 16 mls/hr IV TITR [facility] Rx#:[id number] Normal Saline - 1,000 ml 600 @ 50 mls/hr IV ASDIR [facility] Rx#:[id number] Heparin - 25,000 Unit In 120 120 Normal Saline - 495 ml @ 800 UNIT/HR 16 mls/hr IV TITR [facility] Rx#:[id number] Normal Saline - 1,000 ml 200 @ 50 mls/hr IV ASDIR [facility] Rx#:[id number] IVPB 50 Oral 830 100 Output: Urine 900 200 Mallory 900 200 Other: Voiding Method External Catheter Diaper # Unmeasured Voids Mallory 3 Bowel Movement No Yes Weight Measurement [facility] Active Medications Albuterol Sulfate (Ventolin 0.083% Nebulizer Soln -) 1 amp NEB Q4HPO [facility] Last Admin: 09/25/16 06:29 Dose: 1 amp Amino Acids (Prostat Sugar-Free Packet -) 30 ml PO BID@0800,1730 [facility] Atorvastatin Calcium (Lipitor -) 80 mg PO HS [facility] Last Admin: 09/24/16 21:32 Dose: 80 mg Azithromycin (Zithromax -) 250 mg PO DAILY@1999 [facility] Last Admin: 09/24/16 22:40 Dose: 250 mg Calcium Acetate (Phoslo -) 667 mg PO BIDWM [facility] Last Admin: 09/24/16 17:46 Dose: 667 mg Clopidogrel Bisulfate (Plavix -) 75 mg PO DAILY@220 [facility] Last Admin: 09/24/16 21:37 Dose: 75 mg Heparin Sodium (Porcine) (Heparin -) 1,000 unit IVPUSH PRN PRN PRN Reason: Heparin Heparin Sodium (Porcine) (Heparin -) 5,000 unit IVPUSH PRN PRN PRN Reason: Heparin Ceftriaxone Sodium (Rocephin 1gm Ivpb (Pre-Docked)) 50 mls @ 100 mls/hr IVPB DAILY [facility] Heparin Sodium (Porcine) 25, (000 unit/ Sodium Chloride) 500 mls @ 16 mls/hr IV TITR [facility]; 800 UNIT/HR PRN Reason: Protocol Last Admin: 09/24/16 17:46 Dose: 10 mls/hr Methylprednisolone Sodium Succinate (Solu-Medrol -) 60 mg IVPB Q12H [facility] Last Admin: 09/24/16 21:32 Dose: 60 mg Metoprolol Tartrate (Lopressor -) 12.5 mg PO DAILY [facility] Multivitamins/Minerals/Vitamin C (Tab-A-Vit -) 1 tab PO DAILY [facility] Nicotine (Nicoderm Patch -) 21 mg TD DAILY [facility] Last Admin: 09/24/16 14:41 Dose: 21 mg Oseltamivir Phosphate (Tamiflu -) 30 mg PO DAILY [facility] Tamsulosin HCl (Flomax -) 0.4 mg PO DAILY [facility] Constitutional: Yes: Awake and alert, NAD, mildly confused Eyes: Yes: PERRL HENT: Yes: WNL Neck: Yes: WNL Cardiovascular: Yes: S1, S2 Respiratory: Yes: Diminished at the bases, On Nasal O2, Mildly Tachypnea, no distress Gastrointestinal: Yes: Normal Bowel Sounds. No: Tenderness ...Rectal Exam: Yes: Deferred Renal/: No: no mallory Edema: Yes Edema: no edema Peripheral Pulses WNL: Yes (+2 bilateral pedal pulses) Integumentary: Yes: Dry Neurological: Yes: Alert Psychiatric: Yes: WNL Labs: WBC 10.6 K/mm3 (4.0-10.0) H 09/25/16 05:20 RBC 4.01 M/mm3 (4.00-5.60) 09/25/16 05:20 Hgb 11.0 GM/dL (11.7-16.9) L 09/25/16 05:20 Hct 34.2 % (35.4-49) L 09/25/16 05:20 MCV 85.2 fl (80-96) 09/25/16 05:20 MCHC 32.1 g/dl (32.0-35.9) 09/25/16 05:20 RDW 15.4 % (11.9-15.9) 09/25/16 05:20 Plt Count 127 K/MM3 (134-434) L 09/25/16 05:20 MPV 8.6 fl (7.5-11.1) 09/25/16 05:20 Neutrophils % 97.0 % (42.8-82.8) H 09/24/16 05:00 Lymphocytes % 2.0 % (8-40) L D 09/24/16 05:00 Monocytes % 1.0 % (3.8-10.2) L 09/24/16 05:00 Eosinophils % 0.1 % (0-4.5) D 09/23/16 00:30 Basophils % 0.0 % (0-2.0) 09/23/16 00:30 Sodium 141 mmol/L (136-145) 09/25/16 05:20 Potassium 4.1 mmol/L (3.5-5.1) 09/25/16 05:20 Chloride 100 mmol/L (98-107) 09/25/16 05:20 Carbon Dioxide 37 mmol/L (21-32) H 09/25/16 05:20 Anion Gap 4 (8-16) L 09/25/16 05:20 BUN 49 mg/dL (7-18) H 09/25/16 05:20 Creatinine 1.4 mg/dL (0.7-1.3) H D 09/25/16 05:20 Creat Clearance w eGFR 48.76 (>60) 09/25/16 05:20 Random Glucose 138 mg/dL (74-106) H 09/25/16 05:20 Lactic Acid 1.798 mmol/L (0.4-2.0) 09/24/16 05:00 Calcium 7.9 mg/dL (8.5-10.1) L 09/25/16 05:20 Phosphorus 4.6 mg/dL (2.5-4.9) D 09/24/16 05:00 Magnesium 2.8 mg/dL (1.8-2.4) H 09/24/16 05:00 Total Bilirubin 0.3 mg/dL (0.2-1.0) D 09/25/16 05:20 AST 661 U/L (15-37) H D 09/25/16 05:20 ALT 770 U/L (12-78) H D 09/25/16 05:20 Alkaline Phosphatase 164 U/L (45-117) H 09/25/16 05:20 Creatine Kinase 655 IU/L (39-308) H 09/24/16 05:00 Creatine Kinase Index 3.9 % (0.0-5.0) 09/24/16 05:00 CK-MB (CK-2) 25.552 ng/ml (0.5-3.6) H 09/24/16 05:00 CK-MB (CK-2) Rel Index Cancelled 09/22/16 20:07 Troponin I 3.66 ng/ml (0.00-0.05) H* 09/24/16 05:00 B-Natriuretic Peptide 26342.16 pg/ml (5-450) H 09/22/16 20:07 Total Protein 5.1 g/dl (6.4-8.2) L 09/25/16 05:20 Albumin 2.4 g/dl (3.4-5.0) L 09/25/16 05:20 Assessment/Plan AMI AE of COPD URI Emphysema / asthma HLD Gastric CA s/p resection Active smoker CHF Influenza Elevated LFTs ENZO PLAN: IV Heparin ASA Taper Medrol BD TX Smoking cessation counseling Tamiflu D/C Rocephin PO Zithromax In for floor bed, remains on droplet isolation for influenza Carrington Yanez ACNP [id number]
[2016-09-25 07:53] LABS: TROPONIN I 1.45 ng/ml (0.00-0.05)
--- NOTE | 2016-09-25 08:29 | PN ---
Progress Note (short form) - Note Progress Note: currently asymptomatic. states that he feels better to have oxygen. denies dyspnea, SOB or cough. denies CP, fever, chills, N/V/C/D. appetite improving Current Medications Generic Name Dose Route Start Last Admin Trade Name Freq PRN Reason Stop Dose Admin Albuterol Sulfate 1 amp 09/24/16 18:00 09/25/16 06:29 Ventolin 0.083% Nebulizer Soln - NEB 1 amp Q4HPO [facility] Administration Amino Acids 30 ml 09/25/16 08:00 Prostat Sugar-Free Packet - PO BID@0800,1730 [facility] Atorvastatin Calcium 80 mg 09/24/16 22:00 09/24/16 21:32 Lipitor - PO 80 mg HS [facility] Administration Azithromycin 250 mg 09/24/16 20:00 09/24/16 22:40 Zithromax - PO 250 mg DAILY@2000 [facility] Administration Calcium Acetate 667 mg 09/24/16 17:30 09/24/16 17:46 Phoslo - PO 667 mg BIDWM [facility] Administration Clopidogrel Bisulfate 75 mg 09/24/16 22:00 09/24/16 21:37 Plavix - PO 75 mg DAILY@2200 [facility] Administration Heparin Sodium (Porcine) 1,000 unit 09/24/16 15:21 Heparin - IVPUSH PRN PRN Heparin Heparin Sodium (Porcine) 5,000 unit 09/24/16 15:21 Heparin - IVPUSH PRN PRN Heparin Ceftriaxone Sodium 50 mls @ 100 mls/hr 09/25/16 10:00 Rocephin 1gm Ivpb (Pre-Docked) IVPB DAILY [facility] Heparin Sodium (Porcine) 25, 500 mls @ 16 mls/hr 09/24/16 15:21 09/24/16 17:46 000 unit/ Sodium Chloride IV 10 mls/hr TITR [facility] Administration Protocol 800 UNIT/HR Methylprednisolone Sodium Succinate 60 mg 09/24/16 22:00 09/24/16 21:32 Solu-Medrol - IVPB 60 mg Q12H [facility] Administration Metoprolol Tartrate 12.5 mg 09/25/16 10:00 Lopressor - PO DAILY [facility] Multivitamins/Minerals/Vitamin C 1 tab 09/25/16 10:00 Tab-A-Vit - PO DAILY [facility] Nicotine 21 mg 09/24/16 14:00 09/24/16 14:41 Nicoderm Patch - TD 21 mg DAILY [facility] Administration Oseltamivir Phosphate 30 mg 09/25/16 10:00 Tamiflu - PO DAILY [facility] Tamsulosin HCl 0.4 mg 09/25/16 10:00 Flomax - PO DAILY [facility] Last Vital Signs Temp Pulse Resp BP Pulse Ox 97.9 F 106 H 20 156/93 98 09/25/16 06:00 09/25/16 08:00 09/25/16 08:00 09/25/16 08:00 09/24/16 21:51 General NAD, cachectic CV S1 S2 RRR no murmur/rub/gallop no chest wall tenderness Lungs CTA B/L no wheezing/rales/rhonchi poor inspiratory effort Abdomen soft NT/ND, tympanic Extremities trace pitting edema CBCD WBC 10.6 K/mm3 (4.0-10.0) H 09/25/16 05:20 RBC 4.01 M/mm3 (4.00-5.60) 09/25/16 05:20 Hgb 11.0 GM/dL (11.7-16.9) L 09/25/16 05:20 Hct 34.2 % (35.4-49) L 09/25/16 05:20 MCV 85.2 fl (80-96) 09/25/16 05:20 MCHC 32.1 g/dl (32.0-35.9) 09/25/16 05:20 RDW 15.4 % (11.9-15.9) 09/25/16 05:20 Plt Count 127 K/MM3 (134-434) L 09/25/16 05:20 MPV 8.6 fl (7.5-11.1) 09/25/16 05:20 CMP Sodium 141 mmol/L (136-145) 09/25/16 05:20 Potassium 4.1 mmol/L (3.5-5.1) 09/25/16 05:20 Chloride 100 mmol/L (98-107) 09/25/16 05:20 Carbon Dioxide 37 mmol/L (21-32) H 09/25/16 05:20 Anion Gap 4 (8-16) L 09/25/16 05:20 BUN 49 mg/dL (7-18) H 09/25/16 05:20 Creatinine 1.4 mg/dL (0.7-1.3) H D 09/25/16 05:20 Creat Clearance w eGFR 48.76 (>60) 09/25/16 05:20 Calcium 7.9 mg/dL (8.5-10.1) L 09/25/16 05:20 Total Bilirubin 0.3 mg/dL (0.2-1.0) D 09/25/16 05:20 AST 661 U/L (15-37) H D 09/25/16 05:20 ALT 770 U/L (12-78) H D 09/25/16 05:20 Alkaline Phosphatase 164 U/L (45-117) H 09/25/16 05:20 Total Protein 5.1 g/dl (6.4-8.2) L 09/25/16 05:20 Albumin 2.4 g/dl (3.4-5.0) L 09/25/16 05:20 ASSESSMENT AND PLAN: 81yo M with PMH COPD, Dyslipidemia, gastric ca s/p Rtx/chemo and gastric resection (2012) and BPH presented to the ER and was admitted for further evaluation of their emergent condition 1. NSTEMI-likely demand ischemia. trop peaked at 5. no indication to continue to trend troponin. on asa/plavix/hep ggt. can likely d/c heparin ggt at this time, on for 4 days. medical management. no plan for ischemic eval on this admission. cardio on board. cont betablocker/statin 2. acute hypercapnic respiratory distress-possible due to PNA and flu. 94% on RA. encouraged pt that he does not supplemental oxygen at this time but will keep available if he feels dyspnic. cont to taper down steroids. bipap prn. 3. AAA- multiple here seen with largest 4.9cm, u/s done by PMD on 01/06/16 shows same dimensions. cont surveillance 4. sepsis due to PNA and Influenza A- afebrile, tamiflu/azithromycin/ ceftriaxone day 4. will d/c tamiflu and azithromycin tomorrow. droplet precautions which can be d/c once completes tamiflu course. ID on board 5. ENZO- likely due to sepsis- stable. improving. good UOP avoid nephrotoxic medications 6. Malnutrition- dietary evaluation yesterday. on ensure, prostat, magic cup and MIV. encourage po intake and PT 7. Transaminitis- possibly sepsis. trending down. hepatitis panel pending. pt denies tylenol use. u/.s negative for chronic disease or mets 8. BPH- flomax 9. DVT ppx- hep ggt once d/c will switch to sq 10. stable for transfer to [facility] for continuous cardiac monitoring The care of this patient involved high complexity decision making to prevent further life threatening deterioration of the patient's condition and/or to evaluate & treat vital organ system(s) failure or risk of failure. critical care time 42 minutes Visit type - Emergency Visit Emergency Visit: Yes ED Registration Date: 09/22/16 Care time: The patient presented to the Emergency Department on the above date and was hospitalized for further evaluation of their emergent condition. - New Patient This patient is new to me today: No - Critical Care Critical Care patient: Yes Total Critical Care Time (in minutes): 42 Critical Care Statement: The care of this patient involved high complexity decision making to prevent further life threatening deterioration of the patient 's condition and/or to evalute & treat vital organ system(s) failure or risk of failure. - Discharge Referral Referred to [facility] Med P.C.: No
[2016-09-25] MEDS ORDERED: PT OWN MED DRAWER 7, Y5N ONE (09:10)
[2016-09-25] MEDS: methylPREDNISolone NA SUCC 125 MG/2 ML VIAL IVPB SCH ×2 (09:16→21:25)
[2016-09-25] MEDS: CEFTRIAXONE 50 ML IVPB SCH (09:17)
[2016-09-25] MEDS: MULTIVITAMINS (DAILY MVI) TABLET (FP) PO SCH (09:17)
[2016-09-25] MEDS: TAMSULOSIN HCL 0.4 MG CAP.ER.24H (FP) PO SCH (09:17)
[2016-09-25] MEDS: CALCIUM ACETATE 667 MG CAPSULE (FP) PO SCH ×2 (09:18→17:14)
[2016-09-25] MEDS: NICOTINE 21 MG/24 HOURS TOPICAL PATCH TD SCH (09:18)
[2016-09-25] MEDS: AMINO ACIDS/PROTEIN HYDROLYS SUGAR-FREE 30 ML PACKET PO SCH ×2 (09:18→17:13)
[2016-09-25] MEDS: OSELTAMIVIR PHOSPHATE 30 MG CAPSULE PO SCH (09:22)
[2016-09-25] MEDS ORDERED: METOPROLOL TARTRATE 25 MG TABLET (FP) PO SCH (10:00)
--- NOTE | 2016-09-25 10:08 | PN ---
Progress Note, Physician Chief Complaint: Pt A*Ox3; OOB in chair; no chest pain; dyspnea on minimal exertion. History of Present Illness: The patient is a 81 year old black male brought via EMS and presenting with his daughters, with a significant past medical history of COPD, emphysema, HLD, asthmatic, gastric CA, Post resect, BPH, who presents to the emergency department with shortness of breath since yesterday which exacerbated today. The family reports that recent exams show the patient has a small nodule on his left lung. The also report that the patient has been progressively worsening. The family notes that the patient is a heavy smoker. He denies sick contacts or recent travel. The patient denies chest pain, headache and dizziness. Denies fever, chills, nausea, vomit, diarrhea and constipation. Allergies: None Past surgical history: ? stomach removed Social history: Heavy smoker. - Current Medication List Current Medications: Active Medications Albuterol Sulfate (Ventolin 0.083% Nebulizer Soln -) 1 amp NEB Q4HPO [facility] Last Admin: 09/25/16 06:29 Dose: 1 amp Amino Acids (Prostat Sugar-Free Packet -) 30 ml PO BID@0800,1730 [facility] Last Admin: 09/25/16 09:18 Dose: 30 ml Atorvastatin Calcium (Lipitor -) 80 mg PO HS [facility] Last Admin: 09/24/16 21:32 Dose: 80 mg Azithromycin (Zithromax -) 250 mg PO DAILY@2000 [facility] Last Admin: 09/24/16 22:40 Dose: 250 mg Calcium Acetate (Phoslo -) 667 mg PO BIDWM [facility] Last Admin: 09/25/16 09:18 Dose: 667 mg Clopidogrel Bisulfate (Plavix -) 75 mg PO DAILY@2200 [facility] Last Admin: 09/24/16 21:37 Dose: 75 mg Heparin Sodium (Porcine) (Heparin -) 1,000 unit IVPUSH PRN PRN PRN Reason: Heparin Heparin Sodium (Porcine) (Heparin -) 5,000 unit IVPUSH PRN PRN PRN Reason: Heparin Ceftriaxone Sodium (Rocephin 1gm Ivpb (Pre-Docked)) 50 mls @ 100 mls/hr IVPB DAILY [facility] Last Admin: 09/25/16 09:17 Dose: 100 mls/hr Heparin Sodium (Porcine) 25, (000 unit/ Sodium Chloride) 500 mls @ 16 mls/hr IV TITR [facility]; 800 UNIT/HR PRN Reason: Protocol Last Titration: 09/25/16 09:06 Dose: 450 unit/hr Methylprednisolone Sodium Succinate (Solu-Medrol -) 60 mg IVPB Q12H [facility] Last Admin: 09/25/16 09:16 Dose: 60 mg Metoprolol Tartrate (Lopressor -) 12.5 mg PO DAILY [facility] Last Admin: 09/25/16 09:17 Dose: 12.5 mg Multivitamins/Minerals/Vitamin C (Tab-A-Vit -) 1 tab PO DAILY [facility] Last Admin: 09/25/16 09:17 Dose: 1 tab Nicotine (Nicoderm Patch -) 21 mg TD DAILY [facility] Last Admin: 09/25/16 09:18 Dose: 21 mg Oseltamivir Phosphate (Tamiflu -) 30 mg PO DAILY [facility] Last Admin: 09/25/16 09:22 Dose: 30 mg Tamsulosin HCl (Flomax -) 0.4 mg PO DAILY [facility] Last Admin: 09/25/16 09:17 Dose: 0.4 mg - Objective Vital Signs: Vital Signs Temperature 98 F 09/25/16 10:00 Pulse Rate 104 H 09/25/16 10:00 Respiratory Rate 18 09/25/16 10:00 Blood Pressure 144/90 09/25/16 10:00 O2 Sat by Pulse Oximetry (%) 98 09/25/16 09:00 Constitutional: Yes: No Distress Eyes: Yes: WNL HENT: Yes: WNL Neck: Yes: WNL Cardiovascular: Yes: Regular Rate and Rhythm Respiratory: Yes: Diminished Gastrointestinal: Yes: Soft ...Rectal Exam: Yes: Deferred Genitourinary: No: Anuria Breast(s): Yes: WNL Musculoskeletal: Yes: Muscle Weakness Edema: No Peripheral Pulses WNL: No Peripheral Pulses: Left Doralis Pedis: 1+, Right Dorsalis Pedis: 1+ Integumentary: Yes: WNL Neurological: Yes: Alert, Oriented, Weakness Psychiatric: Yes: Alert Labs: CBC, BMP 09/25/16 05:20 09/25/16 05:20 INR, PTT INR 1.45 (0.82-1.09) H 09/22/16 20:07 Abnormal Lab Results 09/24/16 09/25/16 09/25/16 17:45 05:20 05:20 WBC 10.6 H Hgb 11.0 L Hct 34.2 L Plt Count 127 L PTT (Actin FS) 73.3 H D Carbon Dioxide 37 H Anion Gap 4 L BUN 49 H Creatinine 1.4 H D Random Glucose 138 H Calcium 7.9 L AST 661 H D ALT 770 H D Alkaline Phosphatase 164 H Creatine Kinase 387 H D Troponin I 1.45 H* D Total Protein 5.1 L Albumin 2.4 L 09/25/16 05:20 WBC Hgb Hct Plt Count PTT (Actin FS) 85.3 H Carbon Dioxide Anion Gap BUN Creatinine Random Glucose Calcium AST ALT Alkaline Phosphatase Creatine Kinase Troponin I Total Protein Albumin - ....Imaging Chest X-ray: Image Reviewed (COPD) Other: Image Reviewed (telemetry: NSR; periods of sinus tachycardia) Problem List - Problems (1) COPD exacerbation Code(s): J44.1 - CHRONIC OBSTRUCTIVE PULMONARY DISEASE W (ACUTE) EXACERBATION (2) NSTEMI (non-ST elevated myocardial infarction) Assessment/Plan: Continue clopidogrel and ASA. D/c IV heparin. On metoprolol tartrate (consider increasing to bid, or change to succinate for better 24 hour coverage). On statin. Code(s): I21.4 - NON-ST ELEVATION (NSTEMI) MYOCARDIAL INFARCTION (3) Severe sepsis Assessment/Plan: improving; f/u with ID. Code(s): A41.9 - SEPSIS, UNSPECIFIED ORGANISM R65.20 - SEVERE SEPSIS WITHOUT SEPTIC SHOCK (4) Smokes cigarettes Assessment/Plan: On nicotine patch. Code(s): F17.210 - NICOTINE DEPENDENCE, CIGARETTES, UNCOMPLICATED (5) Diastolic CHF Code(s): I50.30 - UNSPECIFIED DIASTOLIC (CONGESTIVE) HEART FAILURE
--- NOTE | 2016-09-25 10:18 | PN ---
Progress Note, Physician History of Present Illness: OOB in chair Mildly tachypneic on nasal cannula No c/o chest pain/ dyspnea Occasional cough Afebrile, WBC mildly elevated on steroids - Current Medication List Current Medications: Active Medications Albuterol Sulfate (Ventolin 0.083% Nebulizer Soln -) 1 amp NEB Q4HPO [facility] Last Admin: 09/25/16 06:29 Dose: 1 amp Amino Acids (Prostat Sugar-Free Packet -) 30 ml PO BID@0800,1730 [facility] Last Admin: 09/25/16 09:18 Dose: 30 ml Atorvastatin Calcium (Lipitor -) 80 mg PO HS [facility] Last Admin: 09/24/16 21:32 Dose: 80 mg Azithromycin (Zithromax -) 250 mg PO DAILY@2000 [facility] Last Admin: 09/24/16 22:40 Dose: 250 mg Calcium Acetate (Phoslo -) 667 mg PO BIDWM [facility] Last Admin: 09/25/16 09:18 Dose: 667 mg Clopidogrel Bisulfate (Plavix -) 75 mg PO DAILY@2200 [facility] Last Admin: 09/24/16 21:37 Dose: 75 mg Heparin Sodium (Porcine) (Heparin -) 1,000 unit IVPUSH PRN PRN PRN Reason: Heparin Heparin Sodium (Porcine) (Heparin -) 5,000 unit IVPUSH PRN PRN PRN Reason: Heparin Ceftriaxone Sodium (Rocephin 1gm Ivpb (Pre-Docked)) 50 mls @ 100 mls/hr IVPB DAILY [facility] Last Admin: 09/25/16 09:17 Dose: 100 mls/hr Heparin Sodium (Porcine) 25, (000 unit/ Sodium Chloride) 500 mls @ 16 mls/hr IV TITR [facility]; 800 UNIT/HR PRN Reason: Protocol Last Titration: 09/25/16 09:06 Dose: 450 unit/hr Methylprednisolone Sodium Succinate (Solu-Medrol -) 60 mg IVPB Q12H [facility] Last Admin: 09/25/16 09:16 Dose: 60 mg Metoprolol Tartrate (Lopressor -) 12.5 mg PO DAILY [facility] Last Admin: 09/25/16 09:17 Dose: 12.5 mg Multivitamins/Minerals/Vitamin C (Tab-A-Vit -) 1 tab PO DAILY [facility] Last Admin: 09/25/16 09:17 Dose: 1 tab Nicotine (Nicoderm Patch -) 21 mg TD DAILY [facility] Last Admin: 09/25/16 09:18 Dose: 21 mg Oseltamivir Phosphate (Tamiflu -) 30 mg PO DAILY [facility] Last Admin: 09/25/16 09:22 Dose: 30 mg Tamsulosin HCl (Flomax -) 0.4 mg PO DAILY [facility] Last Admin: 09/25/16 09:17 Dose: 0.4 mg - Objective Vital Signs: Vital Signs Temperature 98 F 09/25/16 10:00 Pulse Rate 104 H 09/25/16 10:00 Respiratory Rate 18 09/25/16 10:00 Blood Pressure 144/90 09/25/16 10:00 O2 Sat by Pulse Oximetry (%) 98 09/25/16 09:00 Constitutional: Yes: No Distress, Cachectic Eyes: Yes: Conjunctiva Clear Cardiovascular: Yes: Regular Rate and Rhythm, S1, S2 Respiratory: Yes: Rhonchi Gastrointestinal: Yes: Normal Bowel Sounds, Soft. No: Tenderness Edema: No Labs: CBC, BMP 09/25/16 05:20 09/25/16 05:20 INR, PTT INR 1.45 (0.82-1.09) H 09/22/16 20:07 Assessment/Plan Acute influenza A Exacerbation COPD- improved Possible pneumonia Leukocytosis Azotemia- imnproved Elevated LFTs-improving Hx lung nodule Continue Tamiflu, adjusted for CrCl Continue zithromax/ ceftriaxone
[2016-09-25 16:15] LABS: HEP B SURFACE AB Non Reactive (.)
[2016-09-25] MEDS ORDERED: METOPROLOL TARTRATE 5 MG/5 ML VIAL ONE (18:18)
[2016-09-25] MEDS ORDERED: METOPROLOL TARTRATE 5 MG/5 ML VIAL IVPUSH STA (19:32)
[2016-09-25] MEDS ORDERED: hydrALAZINE HCL 20 MG/ML VIAL IVPUSH ONE (20:25)
[2016-09-25] MEDS: ATORVASTATIN CA 80 MG TABLET (FP) PO SCH (21:24)
[2016-09-25] MEDS: CLOPIDOGREL BISULFATE 75 MG TABLET (FP) PO SCH (21:24)
[2016-09-25] MEDS: AZITHROMYCIN 250 MG TABLET (FP) PO SCH (21:25)
[2016-09-25] MEDS: METOPROLOL TARTRATE 25 MG TABLET (FP) PO SCH (21:27)
[2016-09-26] MEDS: ALBUTEROL SO4 0.083% IH SOL 2.5 MG/3 ML VIAL.NEB. NEB SCH ×6 (02:30→22:05)
[2016-09-26 06:29] LABS: MCH 28.1 pg (25.7-33.7); MCHC 32.6 g/dl (32.0-35.9); MEAN PLT VOLUME 8.5 fl (7.5-11.1); PLATELET COUNT 105 K/MM3 (134-434); RDW 15.4 % (11.9-15.9); WHITE BLOOD COUNT 11.3 K/mm3 (4.0-10.0)
[2016-09-26 06:50] LABS: ALBUMIN 2.8 g/dl (3.4-5.0); CALCIUM 8.3 mg/dL (8.5-10.1); MAGNESIUM 2.8 mg/dL (1.8-2.4)
[2016-09-26 07:08] LABS: BILIRUBIN,TOTAL 0.4 mg/dL (0.2-1.0); CREATININE 1.4 mg/dL (0.7-1.3); PHOSPHOROUS 2.5 mg/dL (2.5-4.9); TOT PROT 5.7 g/dl (6.4-8.2)
[2016-09-26 07:11] LABS: TROPONIN I 0.8 ng/ml (0.00-0.05)
--- NOTE | 2016-09-26 07:35 | PN ---
Progress Note (short form) - Note Progress Note: PULM/CCM 24HR Patient seen and examined in the ICU. Stable, no distress Trop downtrended to < 1 No cxpn, afebrile ambulating well with assistance in for bed Vital Signs Temp 98 F 09/26/16 06:00 Pulse 95 H 09/26/16 06:00 Resp 25 H 09/26/16 06:00 BP 151/99 09/26/16 06:00 Pulse Ox 100 09/25/16 21:50 Intake & Output 09/25/16 09/25/16 09/26/16 11:59 23:59 11:59 Intake Total 220 290 100 Output Total 300 Balance 220 -10 100 Weight 43.715 kg 42.751 kg Intake: IV 120 Heparin - 25,000 Unit In 120 Normal Saline - 495 ml @ 800 UNIT/HR 16 mls/hr IV TITR COUNTS INCLUDE 234 BEDS AT THE [facility] Rx#:[id number] IVPB 50 Oral 100 240 100 Output: Urine 300 Void 300 Other: Voiding Method Diaper # Unmeasured Voids Colon 3 Void 1 2 Bowel Movement Yes Yes Yes Weight Measurement Method Built in Bedscale Built in Bedscale Active Medications Albuterol Sulfate (Ventolin 0.083% Nebulizer Soln -) 1 amp NEB Q4HPO COUNTS INCLUDE 234 BEDS AT THE [facility] Last Admin: 09/26/16 02:30 Dose: Not Given Amino Acids (Prostat Sugar-Free Packet -) 30 ml PO BID@0800,1730 COUNTS INCLUDE 234 BEDS AT THE [facility] Last Admin: 09/25/16 17:13 Dose: 30 ml Atorvastatin Calcium (Lipitor -) 80 mg PO HS COUNTS INCLUDE 234 BEDS AT THE [facility] Last Admin: 09/25/16 21:24 Dose: 80 mg Azithromycin (Zithromax -) 250 mg PO DAILY@2000 COUNTS INCLUDE 234 BEDS AT THE [facility] Last Admin: 09/25/16 21:25 Dose: 250 mg Calcium Acetate (Phoslo -) 667 mg PO BIDWM COUNTS INCLUDE 234 BEDS AT THE [facility] Last Admin: 09/25/16 17:14 Dose: 667 mg Clopidogrel Bisulfate (Plavix -) 75 mg PO DAILY@2200 COUNTS INCLUDE 234 BEDS AT THE [facility] Last Admin: 09/25/16 21:24 Dose: 75 mg Heparin Sodium (Porcine) (Heparin -) 1,000 unit IVPUSH PRN PRN PRN Reason: Heparin Heparin Sodium (Porcine) (Heparin -) 5,000 unit IVPUSH PRN PRN PRN Reason: Heparin Ceftriaxone Sodium (Rocephin 1gm Ivpb (Pre-Docked)) 50 mls @ 100 mls/hr IVPB DAILY COUNTS INCLUDE 234 BEDS AT THE [facility] Last Admin: 09/25/16 09:17 Dose: 100 mls/hr Methylprednisolone Sodium Succinate (Solu-Medrol -) 60 mg IVPB Q12H COUNTS INCLUDE 234 BEDS AT THE [facility] Last Admin: 09/25/16 21:25 Dose: 60 mg Metoprolol Tartrate (Lopressor -) 12.5 mg PO BID COUNTS INCLUDE 234 BEDS AT THE [facility] Last Admin: 09/25/16 21:27 Dose: 12.5 mg Multivitamins/Minerals/Vitamin C (Tab-A-Vit -) 1 tab PO DAILY COUNTS INCLUDE 234 BEDS AT THE [facility] Last Admin: 09/25/16 09:17 Dose: 1 tab Nicotine (Nicoderm Patch -) 21 mg TD DAILY COUNTS INCLUDE 234 BEDS AT THE [facility] Last Admin: 09/25/16 09:18 Dose: 21 mg Oseltamivir Phosphate (Tamiflu -) 30 mg PO DAILY COUNTS INCLUDE 234 BEDS AT THE [facility] Last Admin: 09/25/16 09:22 Dose: 30 mg Tamsulosin HCl (Flomax -) 0.4 mg PO DAILY COUNTS INCLUDE 234 BEDS AT THE [facility] Last Admin: 09/25/16 09:17 Dose: 0.4 mg PE: HEENT: PERRL, atraumatic Pulm: scattered crackles, no wheezes CV: regular, no m/r/g ABD: soft, NT, ND Ext: no edema Neuro: intact, CBC, BMP 09/26/16 05:20 09/26/16 05:20 Troponin, BNP 09/25/16 09/26/16 09/26/16 05:20 05:20 05:20 Troponin I 1.45 H* D 0.80 H* D Cancelled Assessment/Plan AMI AE of COPD URI Emphysema / asthma HLD Gastric CA s/p resection Active smoker CHF Influenza Elevated LFTs ENZO PLAN: IV Heparin ASA Taper Medrol BD TX Smoking cessation counseling Tamiflu D/C Rocephin PO Zithromax In for floor bed, remains on droplet isolation for influenza Carrington Yanez ACNP [id number]
[2016-09-26] MEDS ORDERED: methylPREDNISolone NA SUCC 125 MG/2 ML VIAL ONE (08:25)
[2016-09-26] MEDS: AMINO ACIDS/PROTEIN HYDROLYS SUGAR-FREE 30 ML PACKET PO SCH ×2 (08:32→17:15)
[2016-09-26] MEDS: methylPREDNISolone NA SUCC 40 MG/1 ML VIAL IVPB SCH ×3 (08:33→21:52)
[2016-09-26] MEDS: CALCIUM ACETATE 667 MG CAPSULE (FP) PO SCH ×2 (08:33→17:15)
[2016-09-26] MEDS: METOPROLOL TARTRATE 25 MG TABLET (FP) PO SCH ×2 (10:15→21:52)
[2016-09-26] MEDS: TAMSULOSIN HCL 0.4 MG CAP.ER.24H (FP) PO SCH (10:16)
[2016-09-26] MEDS: NICOTINE 21 MG/24 HOURS TOPICAL PATCH TD SCH (10:16)
[2016-09-26] MEDS: OSELTAMIVIR PHOSPHATE 30 MG CAPSULE PO SCH (10:16)
[2016-09-26] MEDS: CEFTRIAXONE 50 ML IVPB SCH (10:17)
--- NOTE | 2016-09-26 10:19 | PN ---
Progress Note, Physician History of Present Illness: Awake, alert Mildly dyspneic at rest on nasal cannula No c/o chest pain/cough/ sputum Afebrile on steroids Cultures negative - Current Medication List Current Medications: Active Medications Albuterol Sulfate (Ventolin 0.083% Nebulizer Soln -) 1 amp NEB Q4HPO [facility] Last Admin: 09/26/16 07:47 Dose: 1 amp Amino Acids (Prostat Sugar-Free Packet -) 30 ml PO BID@0800,1730 [facility] Last Admin: 09/26/16 08:32 Dose: 30 ml Atorvastatin Calcium (Lipitor -) 80 mg PO HS [facility] Last Admin: 09/25/16 21:24 Dose: 80 mg Calcium Acetate (Phoslo -) 667 mg PO BIDWM [facility] Last Admin: 09/26/16 08:33 Dose: 667 mg Clopidogrel Bisulfate (Plavix -) 75 mg PO DAILY@2200 [facility] Last Admin: 09/25/16 21:24 Dose: 75 mg Heparin Sodium (Porcine) (Heparin -) 1,000 unit IVPUSH PRN PRN PRN Reason: Heparin Heparin Sodium (Porcine) (Heparin -) 5,000 unit IVPUSH PRN PRN PRN Reason: Heparin Heparin Sodium (Porcine) (Heparin -) 5,000 unit SQ TID [facility] Ceftriaxone Sodium (Rocephin 1gm Ivpb (Pre-Docked)) 50 mls @ 100 mls/hr IVPB DAILY [facility] Last Admin: 09/25/16 09:17 Dose: 100 mls/hr Methylprednisolone Sodium Succinate (Solu-Medrol -) 30 mg IVPB Q12H [facility] Last Admin: 09/26/16 08:33 Dose: 30 mg Metoprolol Tartrate (Lopressor -) 12.5 mg PO BID [facility] Last Admin: 09/25/16 21:27 Dose: 12.5 mg Multivitamins/Minerals/Vitamin C (Tab-A-Vit -) 1 tab PO DAILY [facility] Last Admin: 09/25/16 09:17 Dose: 1 tab Nicotine (Nicoderm Patch -) 21 mg TD DAILY [facility] Last Admin: 09/25/16 09:18 Dose: 21 mg Oseltamivir Phosphate (Tamiflu -) 30 mg PO DAILY [facility] Last Admin: 09/25/16 09:22 Dose: 30 mg Tamsulosin HCl (Flomax -) 0.4 mg PO DAILY [facility] Last Admin: 09/25/16 09:17 Dose: 0.4 mg - Objective Vital Signs: Vital Signs Temperature 98 F 09/26/16 06:00 Pulse Rate 100 H 09/26/16 08:00 Respiratory Rate 28 H 09/26/16 08:00 Blood Pressure 147/119 09/26/16 08:00 O2 Sat by Pulse Oximetry (%) 100 09/25/16 21:50 Constitutional: Yes: No Distress, Cachectic Eyes: Yes: Conjunctiva Clear Cardiovascular: Yes: Regular Rate and Rhythm, S1, S2 Respiratory: Yes: Diminished Gastrointestinal: Yes: Normal Bowel Sounds, Soft. No: Tenderness Edema: No Labs: CBC, BMP 09/26/16 05:20 09/26/16 05:20 INR, PTT INR 1.45 (0.82-1.09) H 09/22/16 20:07 Assessment/Plan Acute influenza A Completing 5d course Tamiflu Exacerbation COPD- improved Possible pneumonia Leukocytosis Azotemia- imnproved Elevated LFTs Hx lung nodule Discontinue Tamiflu after today's dose D/C isolation Discontinue ceftriaxone Observe off antibiotics
[2016-09-26] MEDS: MULTIVITAMINS (DAILY MVI) TABLET (FP) PO SCH (10:45)
--- NOTE | 2016-09-26 12:40 | PN ---
Physical Exam: SUBJECTIVE: Patient seen and examined at bedside in ICU. Pt states he has had diarrhea since yesterday and now has dry cough but feels as though he has sputum as well which he can't bring up. He also states he has some abdominal discomfort but not pain. He also c/o of SOB and feels more comfortable with nasal cannula on. Went to bed with bipap on but woke up with it off and doesn't remember when it came off last night. He denies N/V/F/C, is eating well, denies dizziness, light-headedness, or chest pain. OBJECTIVE: Vital Signs Temperature 98 F 09/26/16 06:00 Pulse Rate 96 H 09/26/16 10:33 Respiratory Rate 28 H 09/26/16 08:00 Blood Pressure 165/95 09/26/16 10:00 O2 Sat by Pulse Oximetry (%) 94 L 09/26/16 10:33 GENERAL: The patient is awake, alert, and fully oriented, in no acute distress. HEAD: Normal with no signs of trauma. EYES: sclera anicteric, conjunctiva clear. No ptosis. ENT: moist mucous membranes. NECK: Trachea midline, full range of motion LUNGS: Diminished breath sounds B/L. No wheezes, crackles auscultated. HEART: Regular rate and rhythm, S1, S2 without murmur, rub or gallop. ABDOMEN: Soft, nontender, nondistended, normoactive bowel sounds, no guarding, no rebound, no hepatosplenomegaly, no masses. EXTREMITIES: 2+ pulses, warm, well-perfused, no edema. NEUROLOGICAL: Normal speech, gait not observed. PSYCH: Normal mood, normal affect. SKIN: Warm, dry, normal turgor, no rashes or lesions noted Laboratory Results - last 24 hr 09/23/16 09/25/16 09/25/16 02:00 05:20 05:20 WBC RBC Hgb Hct MCV MCHC RDW Plt Count MPV PTT (Actin FS) Sodium Potassium Chloride Carbon Dioxide Anion Gap BUN Creatinine Creat Clearance w eGFR Random Glucose Calcium Phosphorus Magnesium Total Bilirubin AST ALT Alkaline Phosphatase Creatine Kinase Creatine Kinase Index 3.9 CK-MB (CK-2) CK-MB (CK-2) Rel Index Cancelled Troponin I Total Protein Albumin Hepatitis A IgM Ab Negative Hepatitis A Ab Total Positive H Hep Bs Antigen Negative Hep Bs Antibody Non reactive Hep B Core Total Ab Negative 09/26/16 09/26/16 09/26/16 05:20 05:20 05:20 WBC 11.3 H RBC 4.32 Hgb 12.1 Hct 37.1 MCV 86.0 MCHC 32.6 RDW 15.4 Plt Count 105 L MPV 8.5 PTT (Actin FS) 34.0 D Sodium 143 Potassium 4.1 Chloride 100 Carbon Dioxide 38 H Anion Gap 5 L BUN 49 H Creatinine 1.4 H Creat Clearance w eGFR 48.76 Random Glucose 129 H Calcium 8.3 L Phosphorus 2.5 D Magnesium 2.8 H Total Bilirubin 0.4 D AST 461 H D ALT 767 H Alkaline Phosphatase 204 H D Creatine Kinase 304 D Creatine Kinase Index 4.3 CK-MB (CK-2) 13.211 H CK-MB (CK-2) Rel Index Troponin I 0.80 H* D Total Protein 5.7 L Albumin 2.8 L Hepatitis A IgM Ab Hepatitis A Ab Total Hep Bs Antigen Hep Bs Antibody Hep B Core Total Ab 09/26/16 09/26/16 05:20 05:20 WBC RBC Hgb Hct MCV MCHC RDW Plt Count MPV PTT (Actin FS) Sodium Potassium Chloride Carbon Dioxide Anion Gap BUN Creatinine Creat Clearance w eGFR Random Glucose Calcium Phosphorus Magnesium Total Bilirubin AST ALT Alkaline Phosphatase Creatine Kinase Cancelled Creatine Kinase Index CK-MB (CK-2) CK-MB (CK-2) Rel Index Cancelled Troponin I Cancelled Total Protein Albumin Hepatitis A IgM Ab Hepatitis A Ab Total Hep Bs Antigen Hep Bs Antibody Hep B Core Total Ab Microbiology 09/22/16 20:07 Blood - Peripheral Venous Blood Culture - Preliminary NO GROWTH OBTAINED AFTER 72 HOURS, INCUBATION TO CONTINUE FOR 2 DAYS. 09/22/16 20:07 Blood - Peripheral Venous Blood Culture - Preliminary NO GROWTH OBTAINED AFTER 72 HOURS, INCUBATION TO CONTINUE FOR 2 DAYS. 09/23/16 07:00 Urine For Antigen Detection Legionella Antigen - Final 09/23/16 07:00 Urine For Antigen Detection Streptococcus pneumoniae Antigen (M - Final 09/22/16 19:22 Nasopharyngeal Swab Influenza Types A,B Antigen (ELLY) - Final 09/22/16 19:22 Nasopharyngeal Swab - Final Active Medications Generic Name Dose Route Start Last Admin Trade Name Freq PRN Reason Stop Dose Admin Albuterol Sulfate 1 amp 09/24/16 18:00 09/26/16 10:33 Ventolin 0.083% Nebulizer Soln - NEB Not Given Q4HPO [facility] Amino Acids 30 ml 09/25/16 08:00 09/26/16 08:32 Prostat Sugar-Free Packet - PO 30 ml BID@0800,1730 [facility] Administration Atorvastatin Calcium 80 mg 09/24/16 22:00 09/25/16 21:24 Lipitor - PO 80 mg HS [facility] Administration Calcium Acetate 667 mg 09/24/16 17:30 09/26/16 08:33 Phoslo - PO 667 mg BIDWM [facility] Administration Clopidogrel Bisulfate 75 mg 09/24/16 22:00 09/25/16 21:24 Plavix - PO 75 mg DAILY@2200 [facility] Administration Heparin Sodium (Porcine) 1,000 unit 09/24/16 15:21 Heparin - IVPUSH PRN PRN Heparin Heparin Sodium (Porcine) 5,000 unit 09/24/16 15:21 Heparin - IVPUSH PRN PRN Heparin Heparin Sodium (Porcine) 5,000 unit 09/26/16 14:00 Heparin - SQ TID [facility] Methylprednisolone Sodium Succinate 30 mg 09/26/16 10:00 09/26/16 10:46 Solu-Medrol - IVPB Not Given Q12H [facility] Metoprolol Tartrate 12.5 mg 09/25/16 22:00 09/26/16 10:15 Lopressor - PO 12.5 mg BID [facility] Administration Multivitamins/Minerals/Vitamin C 1 tab 09/25/16 10:00 09/26/16 10:45 Tab-A-Vit - PO 1 tab DAILY [facility] Administration Nicotine 21 mg 09/24/16 14:00 09/26/16 10:16 Nicoderm Patch - TD 21 mg DAILY [facility] Administration Tamsulosin HCl 0.4 mg 09/25/16 10:00 09/26/16 10:16 Flomax - PO 0.4 mg DAILY [facility] Administration ASSESSMENT/PLAN: 81 yo M with h/o COPD, emphysema, asthma, current smoker, abdominal aneurysm, HLD, gastric CA s/p resection and radiation, BPH, recent diagnosis of left lung nodule admitted to ICU for severe sepsis secondary to flu in the setting of COPD exacerbation. -Sepsis secondary to flu -resolving -off tamiflu and off all abx now -will watch off abx -off droplet preacautions -SOB -pre and post O2 sat to assess for home O2 necessity -Cough with sputum -Chest PT -Incentive spirometer -Diarrhea -C. Diff ordered -Leukocytosis -WBC 11.3 today -secondary to sepsis/pna -monitor off abx -ID on board -Acute hypercapnic respiratory failure; improving; on venturimask during day, oxygenating well with 3L NC as well. -secondary to COPD -c/w ventolin -solu-medrol 30 mg IV q12h -continue to taper -bipap PRN -NSTEMI -can do cardiac work up as outpatient -ECHO: trace TR, trace pulmonic valve regurg, otherwise unremarkable (nl LVSF ) -off heparin drip -Trops trending down -c/w clopidogrel 75 mg PO qd -Spoke with PCP Dr. Rdz who states he had stress test done on 05/10/16 which was normal -Transaminitis most likely secondary to sepsis -trending down, continue to monitor -ENZO secondary to sepsis most likely -BUN/Cr 49/1.4 -trending down -AAA -Stable in size, can continue to follow up as outpatient. -CHF, new onset most likely -currently not fluid overloaded, monitor I/Os -BPH -c/w flomax 0.4 mg PO qd -PPx -DVT: heparin 5000 units SQ TID -PT eval -FEN -NS@50 ml/hr -Fat/Sodium controlled diet -Dietary on board -Solange leyva -Dispo: -Can be transferred to tele. Problem List - Problems (1) Acute renal insufficiency Code(s): N28.9 - DISORDER OF KIDNEY AND URETER, UNSPECIFIED (2) CHF exacerbation Code(s): I50.9 - HEART FAILURE, UNSPECIFIED (3) COPD exacerbation Code(s): J44.1 - CHRONIC OBSTRUCTIVE PULMONARY DISEASE W (ACUTE) EXACERBATION (4) Elevated troponin Code(s): R79.89 - OTHER SPECIFIED ABNORMAL FINDINGS OF BLOOD CHEMISTRY (5) NSTEMI (non-ST elevated myocardial infarction) Code(s): I21.4 - NON-ST ELEVATION (NSTEMI) MYOCARDIAL INFARCTION (6) Severe sepsis Code(s): A41.9 - SEPSIS, UNSPECIFIED ORGANISM R65.20 - SEVERE SEPSIS WITHOUT SEPTIC SHOCK (7) Diarrhea Code(s): R19.7 - DIARRHEA, UNSPECIFIED (8) Cough Code(s): R05 - COUGH (9) SOB (shortness of breath) Code(s): R06.02 - SHORTNESS OF BREATH Visit type - Emergency Visit Emergency Visit: Yes ED Registration Date: 09/22/16 Care time: The patient presented to the Emergency Department on the above date and was hospitalized for further evaluation of their emergent condition. - New Patient This patient is new to me today: No - Critical Care Critical Care patient: Yes Total Critical Care Time (in minutes): 35 Critical Care Statement: The care of this patient involved high complexity decision making to prevent further life threatening deterioration of the patient 's condition and/or to evalute & treat vital organ system(s) failure or risk of failure.
--- NOTE | 2016-09-26 14:05 | PN ---
Teaching Attending Note Name of Resident: Srikanth Aguirre ATTENDING PHYSICIAN STATEMENT I saw and evaluated the patient. I reviewed the resident's note and discussed the case with the resident. I agree with the resident's findings and plan as documented. SUBJECTIVE:c/o nonproductive cough. multiple episodes of loose stool since yesterday,. negative for blood or melena. deneis CP, SOB,fever, chills, N/V/C/ D. appetite improving OBJECTIVE: Last Vital Signs Temp Pulse Resp BP Pulse Ox 98.2 F 80 19 157/89 94 L 09/26/16 13:03 09/26/16 13:03 09/26/16 13:03 09/26/16 13:03 09/26/16 10:33 General NAD, cachetic CV S1 S2 RRR no murmur/rub/gallop Lungs coarse breath sounds diffusely. poor inspiratory effort ASSESSMENT AND PLAN: 81yo M with PMH COPD, Dyslipidemia, gastric ca s/p Rtx/chemo and gastric resection (2012) and BPH presented to the ER and was admitted for further evaluation of their emergent condition 1. NSTEMI-likely demand ischemia. trop peaked at 5. no indication to continue to trend troponin. hep ggt d/c yesterday. on asa/plavix. Medical management. no plan for ischemic eval on this admission. cardio on board. cont betablocker/ statin 2. acute hypercapnic respiratory distress-possible due to PNA and flu. 94% on RA. now has cough. will give incentive spirometer and chest PT. all abx d/c by ID. no longer requiring droplet precautions. steroid taper. pre and post O2. bipap prn. 3. Diarrhea- been on abx for 4 days. low suspicion but will r/o cdiff as mild uptrend in leukocytosis 4. HTN- uncontrolled. started on standing metoprolol. titrate to optimize control. 5. AAA- multiple here seen with largest 4.9cm, u/s done by PMD on 01/06/16 shows same dimensions. cont surveillance 6. sepsis due to PNA and Influenza A- afebrile, today is day 5 of abx, all abx d /c. no longer requiring droplet precautions. completed tamiflu course. ID on board 7. ENZO- likely due to sepsis- stable. improving. good UOP avoid nephrotoxic medications 8. Malnutrition- dietary evaluation yesterday. on ensure, prostat, magic cup and MIV. encourage po intake and PT 9. Transaminitis- possibly sepsis. trending down. hepatitis panel +HAV ab only. pt denies tylenol use. u/.s negative for chronic disease or mets 10. BPH- flomax 11. DVT ppx- hep sq 12. stable for transfer to [facility] for continuous cardiac monitoring The care of this patient involved high complexity decision making to prevent further life threatening deterioration of the patient's condition and/or to evaluate & treat vital organ system(s) failure or risk of failure. critical care time 40 minutes
[2016-09-26] MEDS ORDERED: hydrALAZINE HCL 20 MG/ML VIAL ONE (14:34)
[2016-09-26] MEDS ORDERED: hydrALAZINE HCL 20 MG/ML VIAL IVPUSH ONE (14:35)
[2016-09-26] MEDS: HEPARIN NA (PORCINE) 5,000 UNITS/ML 1ML VIAL SQ SCH ×2 (14:43→21:51)
[2016-09-26] MEDS: ATORVASTATIN CA 80 MG TABLET (FP) PO SCH (21:52)
[2016-09-26] MEDS: CLOPIDOGREL BISULFATE 75 MG TABLET (FP) PO SCH (21:56)
--- NOTE | 2016-09-27 00:01 | PN ---
Progress Note, Physician Chief Complaint: Pt A&Ox3; lying in bed; no complaints. History of Present Illness: The patient is a 81 year old black male brought via EMS and presenting with his daughters, with a significant past medical history of COPD, emphysema, HLD, asthmatic, gastric CA, Post resect, BPH, who presents to the emergency department with shortness of breath since yesterday which exacerbated today. The family reports that recent exams show the patient has a small nodule on his left lung. The also report that the patient has been progressively worsening. The family notes that the patient is a heavy smoker. He denies sick contacts or recent travel. The patient denies chest pain, headache and dizziness. Denies fever, chills, nausea, vomit, diarrhea and constipation. Allergies: None Past surgical history: ? gastric Social history: Heavy smoker. - Current Medication List Current Medications: Active Medications Albuterol Sulfate (Ventolin 0.083% Nebulizer Soln -) 1 amp NEB Q4HPO [facility] Last Admin: 09/26/16 22:05 Dose: Not Given Amino Acids (Prostat Sugar-Free Packet -) 30 ml PO BID@0800,1730 [facility] Last Admin: 09/26/16 17:15 Dose: 30 ml Atorvastatin Calcium (Lipitor -) 80 mg PO HS [facility] Last Admin: 09/26/16 21:52 Dose: 80 mg Calcium Acetate (Phoslo -) 667 mg PO BIDWM [facility] Last Admin: 09/26/16 17:15 Dose: 667 mg Clopidogrel Bisulfate (Plavix -) 75 mg PO DAILY@2200 [facility] Last Admin: 09/26/16 21:56 Dose: 75 mg Heparin Sodium (Porcine) (Heparin -) 5,000 unit SQ TID [facility] Last Admin: 09/26/16 21:51 Dose: 5,000 unit Methylprednisolone Sodium Succinate (Solu-Medrol -) 30 mg IVPB Q12H [facility] Last Admin: 09/26/16 21:52 Dose: 30 mg Metoprolol Tartrate (Lopressor -) 25 mg PO BID [facility] Last Admin: 09/26/16 21:52 Dose: 25 mg Multivitamins/Minerals/Vitamin C (Tab-A-Vit -) 1 tab PO DAILY [facility] Last Admin: 09/26/16 10:45 Dose: 1 tab Nicotine (Nicoderm Patch -) 21 mg TD DAILY [facility] Last Admin: 09/26/16 10:16 Dose: 21 mg Tamsulosin HCl (Flomax -) 0.4 mg PO DAILY [facility] Last Admin: 09/26/16 10:16 Dose: 0.4 mg - Objective Vital Signs: Vital Signs Temperature 98.1 F 09/26/16 18:51 Pulse Rate 96 H 09/26/16 18:51 Respiratory Rate 17 09/26/16 18:51 Blood Pressure 127/83 09/26/16 18:51 O2 Sat by Pulse Oximetry (%) 100 09/26/16 15:41 Constitutional: Yes: Calm Eyes: Yes: WNL HENT: Yes: WNL Neck: Yes: WNL Cardiovascular: Yes: Regular Rate and Rhythm, Tachycardia Respiratory: Yes: Diminished Gastrointestinal: Yes: Soft ...Rectal Exam: Yes: Deferred Genitourinary: No: Anuria Breast(s): Yes: WNL Musculoskeletal: Yes: Muscle Weakness Extremities: Yes: Cool Edema: No Peripheral Pulses WNL: No Peripheral Pulses: Left Doralis Pedis: 1+, Right Dorsalis Pedis: 1+ Integumentary: Yes: WNL Neurological: Yes: Alert, Oriented, Weakness Psychiatric: Yes: Alert, Oriented Labs: CBC, BMP 09/26/16 05:20 09/26/16 05:20 INR, PTT INR 1.45 (0.82-1.09) H 09/22/16 20:07 - ....Imaging Chest X-ray: Image Reviewed (no acute pathology; COPD) EKG: Image Reviewed (sinus tachycardia) Problem List - Problems (1) COPD exacerbation Assessment/Plan: f/u with port steward. Code(s): J44.1 - CHRONIC OBSTRUCTIVE PULMONARY DISEASE W (ACUTE) EXACERBATION (2) NSTEMI (non-ST elevated myocardial infarction) Assessment/Plan: Continue clopidogrel and ASA. On metoprolol tartrate bid. On statin Code(s): I21.4 - NON-ST ELEVATION (NSTEMI) MYOCARDIAL INFARCTION (3) Severe sepsis Assessment/Plan: improving; f/u with ID. Gastric CA: f/u with oncology. Code(s): A41.9 - SEPSIS, UNSPECIFIED ORGANISM R65.20 - SEVERE SEPSIS WITHOUT SEPTIC SHOCK (4) Smokes cigarettes Assessment/Plan: On nicotine patch. Code(s): F17.210 - NICOTINE DEPENDENCE, CIGARETTES, UNCOMPLICATED (5) Diastolic CHF Code(s): I50.30 - UNSPECIFIED DIASTOLIC (CONGESTIVE) HEART FAILURE
[2016-09-27] MEDS: ALBUTEROL SO4 0.083% IH SOL 2.5 MG/3 ML VIAL.NEB. NEB SCH ×6 (01:56→22:30)
[2016-09-27] MEDS: HEPARIN NA (PORCINE) 5,000 UNITS/ML 1ML VIAL SQ SCH ×3 (05:30→22:41)
[2016-09-27 06:13] LABS: MCH 26.6 pg (25.7-33.7); MEAN CELL VOLUME 85.8 fl (80-96); MEAN PLT VOLUME 8.9 fl (7.5-11.1); PLATELET COUNT 118 K/MM3 (134-434); RDW 15.4 % (11.9-15.9); WHITE BLOOD COUNT 11.1 K/mm3 (4.0-10.0)
[2016-09-27 07:09] LABS: ALBUMIN 2.8 g/dl (3.4-5.0); BILIRUBIN,TOTAL 0.4 mg/dL (0.2-1.0); CALCIUM 8.7 mg/dL (8.5-10.1); CREATININE 1.2 mg/dL (0.7-1.3); MAGNESIUM 2.9 mg/dL (1.8-2.4); PHOSPHOROUS 3.1 mg/dL (2.5-4.9); TOT PROT 5.5 g/dl (6.4-8.2)
[2016-09-27] MEDS ORDERED: CALCIUM ACETATE 667 MG CAPSULE (FP) PO SCH (08:00)
[2016-09-27] MEDS ORDERED: AMINO ACIDS/PROTEIN HYDROLYS SUGAR-FREE 30 ML PACKET PO SCH (08:00)
[2016-09-27] MEDS ORDERED: TAMSULOSIN HCL 0.4 MG CAP.ER.24H (FP) PO SCH (08:30)
--- NOTE | 2016-09-27 08:36 | PN ---
Progress Note (short form) - Note Progress Note: currently asymptomatic. cough improved. denies dyspnea, SOB. denies CP, fever, chills, N/V/C/D. appetite improving Current Medications Generic Name Dose Route Start Last Admin Trade Name Freq PRN Reason Stop Dose Admin Albuterol Sulfate 1 amp 09/27/16 02:00 09/27/16 06:00 Ventolin 0.083% Nebulizer Soln - NEB 1 amp Q4HPO [facility] Administration Amino Acids 30 ml 09/27/16 08:00 Prostat Sugar-Free Packet - PO BID@0800,1730 [facility] Atorvastatin Calcium 80 mg 09/27/16 22:00 Lipitor - PO HS [facility] Calcium Acetate 667 mg 09/27/16 08:00 Phoslo - PO BIDWM [facility] Clopidogrel Bisulfate 75 mg 09/27/16 22:00 Plavix - PO DAILY@2200 [facility] Heparin Sodium (Porcine) 5,000 unit 09/27/16 06:00 09/27/16 05:30 Heparin - SQ 5,000 unit TID [facility] Administration Methylprednisolone Sodium Succinate 30 mg 09/27/16 10:00 Solu-Medrol - IVPB Q12H [facility] Metoprolol Tartrate 25 mg 09/26/16 12:35 09/26/16 21:52 Lopressor - PO 25 mg BID [facility] Administration Multivitamins/Minerals/Vitamin C 1 tab 09/27/16 10:00 Tab-A-Vit - PO DAILY [facility] Nicotine 21 mg 09/27/16 10:00 Nicoderm Patch - TD DAILY [facility] Tamsulosin HCl 0.4 mg 09/27/16 08:30 Flomax - PO DAILY@0830 [facility] Last Vital Signs Temp Pulse Resp BP Pulse Ox 98 F 70 20 150/74 100 09/27/16 06:00 09/27/16 06:00 09/27/16 06:00 09/27/16 06:00 09/27/16 06:00 General NAD, cachectic CV S1 S2 RRR no murmur/rub/gallop no chest wall tenderness Lungs CTA B/L no wheezing/rales/rhonchi poor inspiratory effort Abdomen soft NT/ND, tympanic Extremities no pedal edema CBCD WBC 11.1 K/mm3 (4.0-10.0) H 09/27/16 05:05 RBC 4.40 M/mm3 (4.00-5.60) 09/27/16 05:05 Hgb 11.7 GM/dL (11.7-16.9) 09/27/16 05:05 Hct 37.8 % (35.4-49) 09/27/16 05:05 MCV 85.8 fl (80-96) 09/27/16 05:05 MCHC 31.0 g/dl (32.0-35.9) L 09/27/16 05:05 RDW 15.4 % (11.9-15.9) 09/27/16 05:05 Plt Count 118 K/MM3 (134-434) L 09/27/16 05:05 MPV 8.9 fl (7.5-11.1) 09/27/16 05:05 CMP Sodium 148 mmol/L (136-145) H 09/27/16 05:05 Potassium 4.3 mmol/L (3.5-5.1) 09/27/16 05:05 Chloride 101 mmol/L (98-107) 09/27/16 05:05 Carbon Dioxide 40 mmol/L (21-32) H 09/27/16 05:05 Anion Gap 7 (8-16) L 09/27/16 05:05 BUN 48 mg/dL (7-18) H 09/27/16 05:05 Creatinine 1.2 mg/dL (0.7-1.3) 09/27/16 05:05 Creat Clearance w eGFR 58.26 (>60) 09/27/16 05:05 Calcium 8.7 mg/dL (8.5-10.1) 09/27/16 05:05 Total Bilirubin 0.4 mg/dL (0.2-1.0) 09/27/16 05:05 AST 309 U/L (15-37) H D 09/27/16 05:05 ALT 635 U/L (12-78) H 09/27/16 05:05 Alkaline Phosphatase 203 U/L (45-117) H 09/27/16 05:05 Total Protein 5.5 g/dl (6.4-8.2) L 09/27/16 05:05 Albumin 2.8 g/dl (3.4-5.0) L 09/27/16 05:05 ASSESSMENT AND PLAN: 81yo M with PMH COPD, Dyslipidemia, gastric ca s/p Rtx/chemo and gastric resection (2012) and BPH presented to the ER and was admitted for further evaluation of their emergent condition 1. NSTEMI-likely demand ischemia. trop peaked at 5. completed heparin ggt.on asa /plavix. Medical management. no plan for ischemic eval on this admission. cardio on board. cont betablocker/statin 2. acute hypercapnic respiratory distress-possible due to PNA and flu. continues to desaturate off oxygen. will likely need home O2. cont incentive spirometer and chest PT. steroid taper, continue yesterday dosing. pre and post O2. bipap prn. would likely benefit from pulmonary rehab 3. Diarrhea- improved. cdiff pending 4. HTN- improved. on metoprolol. titrate to optimize control. 5. AAA- multiple here seen with largest 4.9cm, u/s done by PMD on 01/06/16 shows same dimensions. cont surveillance 6. sepsis due to PNA and Influenza A- afebrile, off all abx. completed 5 day course of abx. ID on board 7. ENZO- likely due to sepsis- stable. improving. good UOP avoid nephrotoxic medications 8. Malnutrition- dietary evaluation yesterday. on ensure, prostat, magic cup and MIV. encourage po intake and PT 9. Transaminitis- due to sepsis. trending down. hepatitis panel +HAV ab only. pt denies tylenol use. u/.s negative for chronic disease or mets 10. BPH- flomax 11. DVT ppx- hep sq 12. stable for transfer to medical floors, cont oxygen sat monitoring. will need DAISY on discharge The care of this patient involved high complexity decision making to prevent further life threatening deterioration of the patient's condition and/or to evaluate & treat vital organ system(s) failure or risk of failure. critical care time 34 minutes Visit type - Emergency Visit Emergency Visit: Yes ED Registration Date: 09/22/16 Care time: The patient presented to the Emergency Department on the above date and was hospitalized for further evaluation of their emergent condition. - New Patient This patient is new to me today: No - Critical Care Critical Care patient: Yes Total Critical Care Time (in minutes): 34 Critical Care Statement: The care of this patient involved high complexity decision making to prevent further life threatening deterioration of the patient 's condition and/or to evalute & treat vital organ system(s) failure or risk of failure. - Discharge Referral Referred to [facility] No
[2016-09-27 08:50] LABS: ARTERIAL BLD GAS O2 SATURATION 97.6 % (90-98.9); ARTERIAL BLOOD GAS BASE EXCESS 11.7 meq/l (-2-2); ARTERIAL BLOOD GAS HCO3 38.4 meq/L (22-26)
[2016-09-27 08:51] LABS: ALLENS TEST POSITIVE; ART PUNCT SITE RIGHT BRACHIAL; LPM/O2% 40%; PT. ON O2? YES; TYPE OF O2 VENTIMASK
[2016-09-27] MEDS ORDERED: PT OWN MED DRAWER 7, Y5N ONE (08:56)
[2016-09-27] MEDS: METOPROLOL TARTRATE 25 MG TABLET (FP) PO SCH ×2 (09:00→22:41)
[2016-09-27] MEDS ORDERED: NICOTINE 21 MG/24 HOURS TOPICAL PATCH TD SCH (10:00)
[2016-09-27] MEDS ORDERED: MULTIVITAMINS (DAILY MVI) TABLET (FP) PO SCH (10:00)
[2016-09-27] MEDS ORDERED: methylPREDNISolone NA SUCC 40 MG/1 ML VIAL IVPB SCH (10:00)
--- NOTE | 2016-09-27 11:05 | PN ---
Progress Note, Physician History of Present Illness: seen and examined today in [facility]. no overnight events. no new complaints. - Current Medication List Current Medications: Active Medications Albuterol Sulfate (Ventolin 0.083% Nebulizer Soln -) 1 amp NEB Q4HPO [facility] Last Admin: 09/27/16 10:19 Dose: 1 amp Amino Acids (Prostat Sugar-Free Packet -) 30 ml PO BID@0800,1730 [facility] Last Admin: 09/27/16 09:00 Dose: 30 ml Atorvastatin Calcium (Lipitor -) 80 mg PO HS [facility] Calcium Acetate (Phoslo -) 667 mg PO BIDWM [facility] Last Admin: 09/27/16 08:57 Dose: 667 mg Clopidogrel Bisulfate (Plavix -) 75 mg PO DAILY@2200 [facility] Heparin Sodium (Porcine) (Heparin -) 5,000 unit SQ TID [facility] Last Admin: 09/27/16 05:30 Dose: 5,000 unit Methylprednisolone Sodium Succinate (Solu-Medrol -) 30 mg IVPB Q12H [facility] Last Admin: 09/27/16 10:18 Dose: 30 mg Metoprolol Tartrate (Lopressor -) 25 mg PO BID [facility] Last Admin: 09/27/16 09:00 Dose: 25 mg Multivitamins/Minerals/Vitamin C (Tab-A-Vit -) 1 tab PO DAILY [facility] Last Admin: 09/27/16 10:17 Dose: 1 tab Nicotine (Nicoderm Patch -) 21 mg TD DAILY [facility] Last Admin: 09/27/16 10:17 Dose: 21 mg Tamsulosin HCl (Flomax -) 0.4 mg PO DAILY@0830 [facility] Last Admin: 09/27/16 08:57 Dose: 0.4 mg - Objective Vital Signs: Vital Signs Temperature 98 F 09/27/16 06:00 Pulse Rate 75 09/27/16 10:00 Respiratory Rate 20 09/27/16 10:00 Blood Pressure 171/83 09/27/16 08:00 O2 Sat by Pulse Oximetry (%) 100 09/27/16 06:00 Constitutional: Yes: No Distress, Calm, Cachectic, Thin Eyes: Yes: WNL, Conjunctiva Clear, EOM Intact, PERRL HENT: Yes: WNL, Atraumatic, Normocephalic Neck: Yes: WNL, Supple, Trachea Midline Cardiovascular: Yes: Regular Rate and Rhythm, S1, S2. No: Bradycardia, Tachycardia, Pulse Irregular, Bruit, JVD, Gallop, Murmur, Rub, S3, S4, Varicosities Respiratory: Yes: Regular, Diminished. No: Rales, Rhonchi, Wheezes Gastrointestinal: Yes: WNL, Normal Bowel Sounds, Soft. No: Distention, Tenderness Musculoskeletal: Yes: Muscle Weakness Edema: No Peripheral Pulses WNL: Yes Peripheral Pulses: Left Doralis Pedis: 2+, Right Dorsalis Pedis: 2+ Integumentary: Yes: WNL Neurological: Yes: Alert, Oriented Psychiatric: Yes: Alert, Oriented Labs: CBC, BMP 09/27/16 05:05 09/27/16 05:05 INR, PTT INR 1.45 (0.82-1.09) H 09/22/16 20:07 - ....Imaging Chest X-ray: Report Reviewed, Image Reviewed EKG: Report Reviewed, Image Reviewed Other: Report Reviewed, Image Reviewed (tele-nsr, sinus tach, self limited episodes of PSVT) Assessment/Plan PNA Influenza Gastric Ca NSTEMI Abdominal aortic aneurysm REC: NSTEMI- -being treated medically for now given multiple co-morbidities, no chest pain -cont Plavix 75mg daily -clarify why not on ASA -statin on hold for elevated LFTs -cont lopressor -echo showed normal LV systolic function -will consider nuclear stress test prior to discharge when improves medically PSVT-brief, self limited events -cont lopressor 25mg po bid -cont tele for now Abdominal aortic aneurysm- -as per patient report being monitored at [facility] -try to obtain prior reports
--- NOTE | 2016-09-27 11:09 | PN ---
Progress Note (short form) - Note Progress Note: PULMONARY/CCM Pt seen and examined in the ICU. Still short of breath, remains on 40% ventimask , used BIPAP overnight. No fevers or chills. Last Vital Signs Temp Pulse Resp BP Pulse Ox 98 F 75 20 171/83 100 09/27/16 06:00 09/27/16 10:00 09/27/16 10:00 09/27/16 08:00 09/27/16 06:00 Intake & Output 09/24/16 09/25/16 09/26/16 09/27/16 23:59 23:59 23:59 23:59 Intake Total 1992 510 270 120 Output Total 1100 300 Balance 892 210 270 120 Weight 94 lb 8 oz 96 lb 6 oz 94 lb 4 oz 93 lb 9.6 oz Gen: tachypneic with speaking Heart: RRR Lung: distant breath sounds, poor air movement Abd: soft, nontender Ext: no edema CBC, BMP 09/27/16 05:05 09/27/16 05:05 Active Medications Albuterol Sulfate (Ventolin 0.083% Nebulizer Soln -) 1 amp NEB Q4HPO [facility] Last Admin: 09/27/16 10:19 Dose: 1 amp Amino Acids (Prostat Sugar-Free Packet -) 30 ml PO BID@0800,1730 [facility] Last Admin: 09/27/16 09:00 Dose: 30 ml Atorvastatin Calcium (Lipitor -) 80 mg PO HS [facility] Calcium Acetate (Phoslo -) 667 mg PO BIDWM [facility] Last Admin: 09/27/16 08:57 Dose: 667 mg Clopidogrel Bisulfate (Plavix -) 75 mg PO DAILY@2200 [facility] Heparin Sodium (Porcine) (Heparin -) 5,000 unit SQ TID [facility] Last Admin: 09/27/16 05:30 Dose: 5,000 unit Methylprednisolone Sodium Succinate (Solu-Medrol -) 30 mg IVPB Q12H [facility] Last Admin: 09/27/16 10:18 Dose: 30 mg Metoprolol Tartrate (Lopressor -) 25 mg PO BID [facility] Last Admin: 09/27/16 09:00 Dose: 25 mg Multivitamins/Minerals/Vitamin C (Tab-A-Vit -) 1 tab PO DAILY [facility] Last Admin: 09/27/16 10:17 Dose: 1 tab Nicotine (Nicoderm Patch -) 21 mg TD DAILY [facility] Last Admin: 09/27/16 10:17 Dose: 21 mg Tamsulosin HCl (Flomax -) 0.4 mg PO DAILY@0830 [facility] Last Admin: 09/27/16 08:57 Dose: 0.4 mg A/P Acute on Chronic Hypercapneic and ?Hypoxic Respiratory Failure Acute COPD Exacerbation Acute NSTEMI Influenza A Pneumonia Sepsis Acute Kidney Injury Lactic Acidosis resolved Elevated LFTs - s/p antibiotics, tamiflu - O2 to keep SpO2 >90% - BiPAP at night and PRN during day - ASA, plavix - monitor LFTs - continue medrol - inhaled bronchodilators - PO as tolerated - DVT/GI prophylaxis - can monitor on telemetry
--- NOTE | 2016-09-27 14:42 | HOSP ---
Subjective - Review of Symptoms Subjective: Notified by RN that pt became very hypoxic when ambulating to the restroom, will increase steroids to 80mg Q6h. supplemental oxygen to maintain spO2 >88%. spoke with , daughter and grandchildren, present at bedside. Updated on current results and plan Informed that he will require DAISY on discharge Verbalized understanding and agreement. Call placed to to provide family with list of facilities Physical Examination Vital Signs: Vital Signs Temperature 98.2 F 09/27/16 14:00 Pulse Rate 89 09/27/16 14:00 Respiratory Rate 26 H 09/27/16 14:00 Blood Pressure 111/85 09/27/16 14:00 O2 Sat by Pulse Oximetry (%) 100 09/27/16 06:00 Labs: CBC, BMP 09/27/16 05:05 09/27/16 05:05
[2016-09-27] MEDS: methylPREDNISolone NA SUCC 40 MG/1 ML VIAL IVPB SCH ×2 (15:46→22:40)
[2016-09-27] MEDS ORDERED: PNEUMOC 13-VAL CONJ-DIP CRM/PF 0.5 ML DISP.SYRIN IM ONE (17:25)
[2016-09-27] MEDS ORDERED: INFLUENZA VACCINE 45 MCG/0.5 ML (MDV 16-17) IM ONE (17:45)
[2016-09-27] MEDS: CALCIUM ACETATE 667 MG CAPSULE (FP) PO SCH (18:58)
[2016-09-27] MEDS: AMINO ACIDS/PROTEIN HYDROLYS SUGAR-FREE 30 ML PACKET PO SCH (19:00)
[2016-09-27] MEDS: methylPREDNISolone NA SUCC 125 MG/2 ML VIAL IVPB SCH (20:30)
[2016-09-27] MEDS ORDERED: CLOPIDOGREL BISULFATE 75 MG TABLET (FP) PO SCH (22:00)
[2016-09-27] MEDS ORDERED: ATORVASTATIN CA 80 MG TABLET (FP) PO SCH (22:00)
[2016-09-27] MEDS: ATORVASTATIN CA 80 MG TABLET (FP) PO SCH (22:41)
[2016-09-27] MEDS: CLOPIDOGREL BISULFATE 75 MG TABLET (FP) PO SCH (22:51)
[2016-09-28] MEDS: ALBUTEROL SO4 0.083% IH SOL 2.5 MG/3 ML VIAL.NEB. NEB SCH ×6 (02:00→22:30)
[2016-09-28] MEDS: methylPREDNISolone NA SUCC 40 MG/1 ML VIAL IVPB SCH ×3 (02:27→18:02)
[2016-09-28] MEDS: HEPARIN NA (PORCINE) 5,000 UNITS/ML 1ML VIAL SQ SCH ×3 (06:15→21:26)
[2016-09-28 08:11] LABS: ALBUMIN 2.9 g/dl (3.4-5.0); CALCIUM 8.6 mg/dL (8.5-10.1)
[2016-09-28 08:15] LABS: BILIRUBIN,TOTAL 0.5 mg/dL (0.2-1.0); CREATININE 1.3 mg/dL (0.7-1.3); MAGNESIUM 2.7 mg/dL (1.8-2.4); PHOSPHOROUS 3.6 mg/dL (2.5-4.9); TOT PROT 5.7 g/dl (6.4-8.2)
[2016-09-28] MEDS: CALCIUM ACETATE 667 MG CAPSULE (FP) PO SCH ×2 (09:17→18:02)
[2016-09-28] MEDS: MULTIVITAMINS (DAILY MVI) TABLET (FP) PO SCH (09:18)
[2016-09-28] MEDS: TAMSULOSIN HCL 0.4 MG CAP.ER.24H (FP) PO SCH (09:18)
[2016-09-28] MEDS: METOPROLOL TARTRATE 25 MG TABLET (FP) PO SCH (09:18)
[2016-09-28] MEDS: AMINO ACIDS/PROTEIN HYDROLYS SUGAR-FREE 30 ML PACKET PO SCH ×2 (09:19→18:01)
[2016-09-28] MEDS: NICOTINE 21 MG/24 HOURS TOPICAL PATCH TD SCH (09:39)
--- NOTE | 2016-09-28 10:12 | PN ---
Progress Note, Physician Chief Complaint: events noted steroids increased denies chest pain - Current Medication List Current Medications: Active Medications Albuterol Sulfate (Ventolin 0.083% Nebulizer Soln -) 1 amp NEB Q4HPO [facility] Last Admin: 09/28/16 06:15 Dose: 1 amp Amino Acids (Prostat Sugar-Free Packet -) 30 ml PO BID@0800,1730 [facility] Last Admin: 09/28/16 09:19 Dose: 30 ml Atorvastatin Calcium (Lipitor -) 80 mg PO HS [facility] Last Admin: 09/27/16 22:41 Dose: 80 mg Calcium Acetate (Phoslo -) 667 mg PO BIDWM [facility] Last Admin: 09/28/16 09:17 Dose: 667 mg Clopidogrel Bisulfate (Plavix -) 75 mg PO DAILY@2200 [facility] Last Admin: 09/27/16 22:51 Dose: 75 mg Heparin Sodium (Porcine) (Heparin -) 5,000 unit SQ TID [facility] Last Admin: 09/28/16 06:15 Dose: 5,000 unit Methylprednisolone Sodium Succinate (Solu-Medrol -) 80 mg IVPB Q6H-IV [facility] Last Admin: 09/28/16 09:18 Dose: 80 mg Metoprolol Tartrate (Lopressor -) 25 mg PO BID [facility] Last Admin: 09/28/16 09:18 Dose: 25 mg Multivitamins/Minerals/Vitamin C (Tab-A-Vit -) 1 tab PO DAILY [facility] Last Admin: 09/28/16 09:18 Dose: 1 tab Nicotine (Nicoderm Patch -) 21 mg TD DAILY [facility] Last Admin: 09/28/16 09:39 Dose: 21 mg Tamsulosin HCl (Flomax -) 0.4 mg PO DAILY@0830 [facility] Last Admin: 09/28/16 09:18 Dose: 0.4 mg - Objective Vital Signs: Vital Signs Temperature 98.3 F 09/27/16 21:10 Pulse Rate 76 09/27/16 21:10 Respiratory Rate 20 09/27/16 21:10 Blood Pressure 152/72 09/27/16 21:10 O2 Sat by Pulse Oximetry (%) 99 09/27/16 21:00 Constitutional: Yes: No Distress Cardiovascular: Yes: Regular Rate and Rhythm Respiratory: Yes: Other (decreased breath sounds b/l, no active wheezing.) Gastrointestinal: Yes: Soft Edema: Yes Edema: LLE: 1+, RLE: 1+ Neurological: Yes: Alert Labs: CBC, BMP 09/27/16 05:05 09/28/16 06:25 INR, PTT INR 1.45 (0.82-1.09) H 09/22/16 20:07 Assessment/Plan Assessment/Plan PNA Influenza Gastric Ca NSTEMI Abdominal aortic aneurysm REC: NSTEMI- -being treated medically for now given multiple co-morbidities, no chest pain -cont Plavix 75mg daily -statin on hold for elevated LFTs -cont lopressor, also being used for PSVT (brief self limited episodes on tele). -echo showed normal LV systolic function -will consider nuclear stress test prior to discharge when improves medically. Abdominal aortic aneurysm- -as per patient report being monitored at [facility] -continue beta blockade.
--- NOTE | 2016-09-28 10:45 | PN ---
<Srikanth Aguirre - Last Filed: 09/28/16 11:43> Physical Exam: SUBJECTIVE: Patient seen and examined at bedside. Pt states he feels somewhat better compared to yesterday. His breathing his feels somewhat improved. He also states that he's eating well and denies N/V/F/C. Is still having diarrhea. OBJECTIVE: Vital Signs Temperature 97.5 F L 09/28/16 09:33 Pulse Rate 76 09/28/16 10:16 Respiratory Rate 20 09/27/16 21:10 Blood Pressure 155/82 09/28/16 09:33 O2 Sat by Pulse Oximetry (%) 96 09/28/16 10:16 GENERAL: The patient is awake, alert, and fully oriented, in no acute distress. HEAD: Normal with no signs of trauma. ENT: moist mucous membranes. NECK: Trachea midline, full range of motion LUNGS: Diminished breath sounds, no crackles or wheezing auscultated. HEART: Regular rate and rhythm, S1, S2 without murmur, rub or gallop. ABDOMEN: Soft, thin, nontender, nondistended, normoactive bowel sounds, no guarding, no rebound, no hepatosplenomegaly, no masses. EXTREMITIES: 2+ pulses, warm, well-perfused, no edema. NEUROLOGICAL: Normal speech, gait not observed. PSYCH: Normal mood, normal affect. SKIN: Warm, dry, normal turgor, no rashes or lesions noted Laboratory Results - last 24 hr 09/28/16 06:25 Sodium 140 Potassium 4.1 Chloride 101 Carbon Dioxide 41 H Anion Gap -2 L BUN 48 H Creatinine 1.3 Creat Clearance w eGFR 53.12 Random Glucose 207 H D Calcium 8.6 Phosphorus 3.6 Magnesium 2.7 H Total Bilirubin 0.5 D AST 195 H D ALT 534 H Alkaline Phosphatase 206 H Total Protein 5.7 L Albumin 2.9 L Active Medications Generic Name Dose Route Start Last Admin Trade Name Freq PRN Reason Stop Dose Admin Albuterol Sulfate 1 amp 09/27/16 18:00 09/28/16 10:00 Ventolin 0.083% Nebulizer Soln - NEB 1 amp Q4HPO [facility] Administration Amino Acids 30 ml 09/27/16 17:30 09/28/16 09:19 Prostat Sugar-Free Packet - PO 30 ml BID@0800,1730 [facility] Administration Atorvastatin Calcium 80 mg 09/27/16 22:00 09/27/16 22:41 Lipitor - PO 80 mg HS [facility] Administration Calcium Acetate 667 mg 09/27/16 17:30 09/28/16 09:17 Phoslo - PO 667 mg BIDWM [facility] Administration Clopidogrel Bisulfate 75 mg 09/27/16 22:00 09/27/16 22:51 Plavix - PO 75 mg DAILY@2200 [facility] Administration Heparin Sodium (Porcine) 5,000 unit 09/27/16 22:00 09/28/16 06:15 Heparin - SQ 5,000 unit TID [facility] Administration Methylprednisolone Sodium Succinate 80 mg 09/27/16 15:00 09/28/16 09:18 Solu-Medrol - IVPB 80 mg Q6H-IV [facility] Administration Metoprolol Tartrate 25 mg 09/27/16 22:00 09/28/16 09:18 Lopressor - PO 25 mg BID [facility] Administration Multivitamins/Minerals/Vitamin C 1 tab 09/28/16 10:00 09/28/16 09:18 Tab-A-Vit - PO 1 tab DAILY [facility] Administration Nicotine 21 mg 09/28/16 10:00 09/28/16 09:39 Nicoderm Patch - TD 21 mg DAILY [facility] Administration Tamsulosin HCl 0.4 mg 09/28/16 08:30 09/28/16 09:18 Flomax - PO 0.4 mg DAILY@0830 [facility] Administration ASSESSMENT/PLAN: 81 yo M with h/o COPD, emphysema, asthma, current smoker, abdominal aneurysm, HLD, gastric CA s/p resection and radiation, BPH, recent diagnosis of left lung nodule admitted to ICU for severe sepsis secondary to flu in the setting of COPD exacerbation. -Sepsis secondary to flu -resolving -off tamiflu and off all abx now -will watch off abx -off droplet preacautions -SOB -pre and post O2 sat to assess for home O2 necessity -solumedrol decreased to IV 40 q8h -Cough with sputum -c/w Chest PT -c/w Incentive spirometer -solumedrol decreased to IV 40 q8h -Diarrhea -C. Diff ordered -Leukocytosis -CBC ordered -secondary to sepsis/pna -monitor off abx -ID on board -Acute hypercapnic respiratory failure; improving; on venturimask during day, oxygenating well with 3L NC as well. -secondary to COPD -c/w ventolin -solu-medrol 40 mg IV q8h -continue to taper -NSTEMI -can do cardiac work up as outpatient -ECHO: trace TR, trace pulmonic valve regurg, otherwise unremarkable (nl LVSF ) -off heparin drip -Trops trending down -c/w clopidogrel 75 mg PO qd -Spoke with PCP Dr. Rdz who states he had stress test done on 05/10/16 which was normal -Transaminitis most likely secondary to sepsis -trending down, continue to monitor -ENZO secondary to sepsis most likely -BUN/Cr 48/1.3 -trending down -AAA -Stable in size, can continue to follow up as outpatient. -CHF, new onset most likely -currently not fluid overloaded, monitor I/Os -BPH -c/w flomax 0.4 mg PO qd -PPx -DVT: heparin 5000 units SQ TID -PT eval -FEN -Fat/Sodium controlled diet -Dietary on board -Solange leyva -Dispo: -Awaiting transfer to [facility]. Problem List - Problems (1) Acute renal insufficiency Code(s): N28.9 - DISORDER OF KIDNEY AND URETER, UNSPECIFIED (2) CHF exacerbation Code(s): I50.9 - HEART FAILURE, UNSPECIFIED (3) COPD exacerbation Code(s): J44.1 - CHRONIC OBSTRUCTIVE PULMONARY DISEASE W (ACUTE) EXACERBATION (4) Elevated troponin Code(s): R79.89 - OTHER SPECIFIED ABNORMAL FINDINGS OF BLOOD CHEMISTRY (5) NSTEMI (non-ST elevated myocardial infarction) Code(s): I21.4 - NON-ST ELEVATION (NSTEMI) MYOCARDIAL INFARCTION (6) Severe sepsis Code(s): A41.9 - SEPSIS, UNSPECIFIED ORGANISM R65.20 - SEVERE SEPSIS WITHOUT SEPTIC SHOCK (7) Diarrhea Code(s): R19.7 - DIARRHEA, UNSPECIFIED (8) Cough Code(s): R05 - COUGH (9) SOB (shortness of breath) Code(s): R06.02 - SHORTNESS OF BREATH Visit type - Emergency Visit Emergency Visit: Yes ED Registration Date: 09/22/16 Care time: The patient presented to the Emergency Department on the above date and was hospitalized for further evaluation of their emergent condition. - New Patient This patient is new to me today: No - Critical Care Critical Care patient: No <London Anaya - Last Filed: 09/28/16 15:11> Physical Exam: ATTENDING PHYSICIAN STATEMENT I saw and evaluated the patient. I reviewed the resident's note and discussed the case with the resident. I agree with the resident's findings and plan as documented. SUBJECTIVE: seen and evaluated at the bedside OBJECTIVE: resting comfortably, in no respiratory distress, diminished breath sounds, no wheezing/rhonchi ASSESSMENT AND PLAN: 81 year old man with PMH COPD, Dyslipidemia, gastric ca s/p Rtx/chemo and gastric resection (2012) and BPH admitted for hypercapnic respiratory failure due to acute on chronic COPD exacerbation COPD -continues to desaturate off oxygen and will likely need home O2; follow up exercise oximetry -was on solumedrol 80 Q6; will rapidly taper immediately -start turdoza -start symbicort -would likely benefit from pulmonary rehab NSTEMI -likely demand ischemia due to hypoxia and increased work of breathing -trop peaked at 5 and has since trended down -completed heparin drip -on asa/plavix. -cont betablocker/statin -follow up with cardio as to when nuclear stress should be done
--- NOTE | 2016-09-28 12:24 | PN ---
Progress Note (short form) - Note Progress Note: Breathing feels a little better today. Still with some RUFF. No CP. Currently on 4 L NC O2. Intake & Output 09/25/16 09/26/16 09/27/16 09/28/16 23:59 23:59 23:59 23:59 Intake Total 510 270 750 50 Output Total 300 Balance 210 270 750 50 Weight 96 lb 6 oz 94 lb 4 oz 93 lb 9.6 oz Last Vital Signs Temp Pulse Resp BP Pulse Ox 97.5 F L 76 20 155/82 96 09/28/16 09:33 09/28/16 10:16 09/27/16 21:10 09/28/16 09:33 09/28/16 10:16 Active Medications Albuterol Sulfate (Ventolin 0.083% Nebulizer Soln -) 1 amp NEB Q4HPO [facility] Last Admin: 09/28/16 10:00 Dose: 1 amp Amino Acids (Prostat Sugar-Free Packet -) 30 ml PO BID@0800,1730 [facility] Last Admin: 09/28/16 09:19 Dose: 30 ml Atorvastatin Calcium (Lipitor -) 80 mg PO HS [facility] Last Admin: 09/27/16 22:41 Dose: 80 mg Calcium Acetate (Phoslo -) 667 mg PO BIDWM [facility] Last Admin: 09/28/16 09:17 Dose: 667 mg Clopidogrel Bisulfate (Plavix -) 75 mg PO DAILY@2200 [facility] Last Admin: 09/27/16 22:51 Dose: 75 mg Heparin Sodium (Porcine) (Heparin -) 5,000 unit SQ TID [facility] Last Admin: 09/28/16 06:15 Dose: 5,000 unit Methylprednisolone Sodium Succinate (Solu-Medrol -) 40 mg IVPB Q8H [facility] Metoprolol Tartrate (Lopressor -) 25 mg PO BID [facility] Last Admin: 09/28/16 09:18 Dose: 25 mg Multivitamins/Minerals/Vitamin C (Tab-A-Vit -) 1 tab PO DAILY [facility] Last Admin: 09/28/16 09:18 Dose: 1 tab Nicotine (Nicoderm Patch -) 21 mg TD DAILY [facility] Last Admin: 09/28/16 09:39 Dose: 21 mg Tamsulosin HCl (Flomax -) 0.4 mg PO DAILY@0830 [facility] Last Admin: 09/28/16 09:18 Dose: 0.4 mg Gen: Mildly tachypneic with speaking Heart: RRR Lung: distant breath sounds, no active wheeze Abd: soft, nontender Ext: no edema Laboratory Results - last 24 hr 09/28/16 06:25 Sodium 140 Potassium 4.1 Chloride 101 Carbon Dioxide 41 H Anion Gap -2 L BUN 48 H Creatinine 1.3 Creat Clearance w eGFR 53.12 Random Glucose 207 H D Calcium 8.6 Phosphorus 3.6 Magnesium 2.7 H Total Bilirubin 0.5 D AST 195 H D ALT 534 H Alkaline Phosphatase 206 H Total Protein 5.7 L Albumin 2.9 L A/P Acute on Chronic Hypercapneic and ?Hypoxic Respiratory Failure Acute COPD Exacerbation Acute NSTEMI Influenza A Pneumonia Sepsis Acute Kidney Injury Lactic Acidosis resolved Elevated LFTs - s/p antibiotics, tamiflu - O2 to keep SpO2 >90% - ASA, plavix - Decrease Medrol - inhaled bronchodilators - PO as tolerated - DVT/GI prophylaxis - D/C planning to Rehab - Will need supplemental O2 on discharge - On discharge -> should be on ICS/LABA or LAMA/LABA if he can tolerate it Dr Berumen
[2016-09-28] MEDS: BUDESONIDE/FORMETEROL FUMARATE 160/4.5 mcg INHALER IH SCH ×2 (18:30→21:27)
[2016-09-28] MEDS: ACLIDINIUM BROMIDE 400 MCG/INH AERO.POWD IH SCH ×2 (18:31→21:41)
[2016-09-28] MEDS ORDERED: PT OWN MED DRAWER 7, Y5N ONE (21:14)
[2016-09-28] MEDS: CLOPIDOGREL BISULFATE 75 MG TABLET (FP) PO SCH (21:26)
[2016-09-28] MEDS: METOPROLOL TARTRATE 50 MG TABLET (FP) PO SCH (21:26)
[2016-09-28] MEDS: ATORVASTATIN CA 80 MG TABLET (FP) PO SCH (21:26)
[2016-09-29] MEDS: ALBUTEROL SO4 0.083% IH SOL 2.5 MG/3 ML VIAL.NEB. NEB SCH ×6 (01:32→23:05)
[2016-09-29] MEDS: methylPREDNISolone NA SUCC 40 MG/1 ML VIAL IVPB SCH ×2 (03:11→09:53)
[2016-09-29] MEDS: HEPARIN NA (PORCINE) 5,000 UNITS/ML 1ML VIAL SQ SCH ×3 (06:55→22:21)
[2016-09-29 08:12] LABS: MCHC 32.8 g/dl (32.0-35.9); MEAN CELL VOLUME 85.5 fl (80-96); MEAN PLT VOLUME 8.6 fl (7.5-11.1); PLATELET COUNT 120 K/MM3 (134-434); RDW 15.1 % (11.9-15.9); WHITE BLOOD COUNT 9.6 K/mm3 (4.0-10.0)
[2016-09-29 08:44] LABS: CALCIUM 8.5 mg/dL (8.5-10.1); CREATININE 1.2 mg/dL (0.7-1.3)
[2016-09-29] MEDS: AMINO ACIDS/PROTEIN HYDROLYS SUGAR-FREE 30 ML PACKET PO SCH ×2 (09:52→18:42)
[2016-09-29] MEDS: CALCIUM ACETATE 667 MG CAPSULE (FP) PO SCH ×2 (09:52→18:42)
[2016-09-29] MEDS: METOPROLOL TARTRATE 50 MG TABLET (FP) PO SCH ×2 (09:53→22:21)
[2016-09-29] MEDS: MULTIVITAMINS (DAILY MVI) TABLET (FP) PO SCH (09:53)
[2016-09-29] MEDS: TAMSULOSIN HCL 0.4 MG CAP.ER.24H (FP) PO SCH (09:53)
[2016-09-29] MEDS: NICOTINE 21 MG/24 HOURS TOPICAL PATCH TD SCH (09:53)
--- NOTE | 2016-09-29 09:54 | PN ---
Progress Note, Physician Chief Complaint: Dr. Aguirre' note reviewed: report of nuclear stress in April was WNL - Current Medication List Current Medications: Active Medications Aclidinium [place] (Tudorza -) 1 puff IH BID [facility] Last Admin: 09/28/16 21:41 Dose: Not Given Albuterol Sulfate (Ventolin 0.083% Nebulizer Soln -) 1 amp NEB Q4HPO [facility] Last Admin: 09/29/16 06:45 Dose: 1 amp Amino Acids (Prostat Sugar-Free Packet -) 30 ml PO BID@0800,1730 [facility] Last Admin: 09/28/16 18:01 Dose: 30 ml Atorvastatin Calcium (Lipitor -) 80 mg PO HS [facility] Last Admin: 09/28/16 21:26 Dose: 80 mg Budesonide/Formoterol Fumarate (Symbicort 160/4.5mcg -) 2 puff IH BID [facility] Last Admin: 09/28/16 21:27 Dose: 2 puff Calcium Acetate (Phoslo -) 667 mg PO BIDWM [facility] Last Admin: 09/28/16 18:02 Dose: 667 mg Clopidogrel Bisulfate (Plavix -) 75 mg PO DAILY@2200 [facility] Last Admin: 09/28/16 21:26 Dose: 75 mg Heparin Sodium (Porcine) (Heparin -) 5,000 unit SQ TID [facility] Last Admin: 09/29/16 06:55 Dose: 5,000 unit Methylprednisolone Sodium Succinate (Solu-Medrol -) 40 mg IVPB Q8H-IV [facility] Last Admin: 09/29/16 03:11 Dose: 40 mg Metoprolol Tartrate (Lopressor -) 50 mg PO BID [facility] Last Admin: 09/28/16 21:26 Dose: 50 mg Multivitamins/Minerals/Vitamin C (Tab-A-Vit -) 1 tab PO DAILY [facility] Last Admin: 09/28/16 09:18 Dose: 1 tab Nicotine (Nicoderm Patch -) 21 mg TD DAILY [facility] Last Admin: 09/28/16 09:39 Dose: 21 mg Tamsulosin HCl (Flomax -) 0.4 mg PO DAILY@0830 [facility] Last Admin: 09/28/16 09:18 Dose: 0.4 mg - Objective Vital Signs: Vital Signs Temperature 98.8 F 09/29/16 02:00 Pulse Rate 74 09/29/16 02:00 Respiratory Rate 20 01/18/17 02:00 Blood Pressure 144/79 09/29/16 02:00 O2 Sat by Pulse Oximetry (%) 98 09/28/16 21:00 Constitutional: Yes: No Distress Cardiovascular: Yes: Regular Rate and Rhythm Respiratory: Yes: Other (decreased breath sounds b/l) Gastrointestinal: Yes: Soft Edema: No Neurological: Yes: Alert Labs: CBC, BMP 09/29/16 06:35 09/29/16 06:35 INR, PTT INR 1.45 (0.82-1.09) H 09/22/16 20:07 - ....Imaging EKG: Report Reviewed Assessment/Plan Assessment/Plan PNA Influenza Gastric Ca NSTEMI Abdominal aortic aneurysm REC: NSTEMI- -being treated medically for now given multiple co-morbidities, no chest pain -cont Plavix 75mg daily -statin on hold for elevated LFTs -cont lopressor, also being used for PSVT (brief self limited episodes on tele). -echo showed normal LV systolic function -patient now clinically improved: stress test 5 months ago was ok, but now s/p NSTEMI. Will order Persantine MIBI for tomorrow to assess ischemic burden and further risk stratify. Abdominal aortic aneurysm- -as per patient report being monitored at [facility] -continue beta blockade.
--- NOTE | 2016-09-29 11:09 | PN ---
<Srikanht Aguirre - Last Filed: 09/29/16 11:18> Physical Exam: SUBJECTIVE: Patient seen and examined at bedside. Feels better today. Has decreased cough, improved breathing, eating well, having BM and urinating without issue. Denies CP, SOB, abdominal pain. Diarrhea is improving today. OBJECTIVE: Vital Signs Temperature 98.8 F 09/29/16 02:00 Pulse Rate 74 09/29/16 02:00 Respiratory Rate 20 09/29/16 02:00 Blood Pressure 144/79 09/29/16 02:00 O2 Sat by Pulse Oximetry (%) 98 09/28/16 21:00 GENERAL: The patient is awake, alert, and fully oriented, in no acute distress. HEAD: Normal with no signs of trauma. ENT: moist mucous membranes. NECK: Trachea midline, full range of motion LUNGS: Diminished breath sounds, no crackles or wheezing auscultated. HEART: Regular rate and rhythm, S1, S2 without murmur, rub or gallop. ABDOMEN: Soft, thin, nontender, nondistended, normoactive bowel sounds, no guarding, no rebound, no hepatosplenomegaly, no masses. EXTREMITIES: 2+ pulses, warm, well-perfused, no edema. NEUROLOGICAL: Normal speech, gait not observed. PSYCH: Normal mood, normal affect. SKIN: Warm, dry, normal turgor, no rashes or lesions noted Laboratory Results - last 24 hr 09/29/16 09/29/16 06:35 06:35 WBC 9.6 RBC 3.72 L Hgb 10.4 L D Hct 31.8 L D MCV 85.5 MCHC 32.8 RDW 15.1 Plt Count 120 L MPV 8.6 Sodium 144 Potassium 3.8 Chloride 102 Carbon Dioxide 40 H Anion Gap 2 L BUN 47 H Creatinine 1.2 Random Glucose 205 H Calcium 8.5 Active Medications Generic Name Dose Route Start Last Admin Trade Name Freq PRN Reason Stop Dose Admin Aclidinium [place] 1 puff 09/28/16 15:15 09/28/16 21:41 Tudorza - IH Not Given BID [facility] Albuterol Sulfate 1 amp 09/27/16 18:00 09/29/16 09:56 Ventolin 0.083% Nebulizer Soln - NEB 1 amp Q4HPO [facility] Administration Amino Acids 30 ml 09/27/16 17:30 09/29/16 09:52 Prostat Sugar-Free Packet - PO 30 ml BID@0800,1730 [facility] Administration Atorvastatin Calcium 80 mg 09/27/16 22:00 09/28/16 21:26 Lipitor - PO 80 mg HS [facility] Administration Budesonide/Formoterol Fumarate 2 puff 09/28/16 15:15 09/28/16 21:27 Symbicort 160/4.5mcg - IH 2 puff BID [facility] Administration Calcium Acetate 667 mg 09/27/16 17:30 09/29/16 09:52 Phoslo - PO 667 mg BIDWM [facility] Administration Clopidogrel Bisulfate 75 mg 09/27/16 22:00 09/28/16 21:26 Plavix - PO 75 mg DAILY@2200 [facility] Administration Heparin Sodium (Porcine) 5,000 unit 09/27/16 22:00 09/29/16 06:55 Heparin - SQ 5,000 unit TID [facility] Administration Methylprednisolone Sodium Succinate 40 mg 09/28/16 18:00 09/29/16 09:53 Solu-Medrol - IVPB 40 mg Q8H-IV [facility] Administration Metoprolol Tartrate 50 mg 09/28/16 22:00 09/29/16 09:53 Lopressor - PO 50 mg BID [facility] Administration Multivitamins/Minerals/Vitamin C 1 tab 09/28/16 10:00 09/29/16 09:53 Tab-A-Vit - PO 1 tab DAILY [facility] Administration Nicotine 21 mg 09/28/16 10:00 09/29/16 09:53 Nicoderm Patch - TD 21 mg DAILY [facility] Administration Tamsulosin HCl 0.4 mg 09/28/16 08:30 09/29/16 09:53 Flomax - PO 0.4 mg DAILY@0830 [facility] Administration ASSESSMENT/PLAN: 81 yo M with h/o COPD, emphysema, asthma, current smoker, abdominal aneurysm, HLD, gastric CA s/p resection and radiation, BPH, recent diagnosis of left lung nodule admitted to ICU for severe sepsis secondary to flu in the setting of COPD exacerbation. -Sepsis secondary to flu -resolving -SOB -pre and post O2 sat to assess for home O2 necessity -solumedrol d/c'd -changed to prednisone 40 mg PO qd -Cough with sputum -c/w Chest PT -c/w Incentive spirometer -solumedrol decreased to IV 40 q8h -Diarrhea -C. Diff ordered, f/u results -Leukocytosis -resolved, WBC wnl now -Acute hypercapnic respiratory failure; improving; on venturimask during day, oxygenating well with 4L NC as well. -resolving -secondary to COPD -c/w ventolin -NSTEMI -can do cardiac work up as outpatient -ECHO: trace TR, trace pulmonic valve regurg, otherwise unremarkable (nl LVSF ) -off heparin drip -Trops trending down -c/w clopidogrel 75 mg PO qd -Spoke with PCP Dr. Rdz who states he had stress test done on 05/10/16 which was normal -Stress test for tomorrow -Transaminitis most likely secondary to sepsis -trending down, continue to monitor -ENZO secondary to sepsis most likely -BUN/Cr 47/1.2 -trending down -AAA -Stable in size, can continue to follow up as outpatient. -CHF, new onset most likely -currently not fluid overloaded, monitor I/Os -BPH -c/w flomax 0.4 mg PO qd -PPx -DVT: heparin 5000 units SQ TID -PT eval -FEN -Fat/Sodium controlled diet -Dietary on board -Solange ensure -Dispo: -Has bed in SNF, awaiting stress tomorrow for d/c. Smoking cessation especially with home/ambulation O2 use. Problem List - Problems (1) Acute renal insufficiency Code(s): N28.9 - DISORDER OF KIDNEY AND URETER, UNSPECIFIED (2) CHF exacerbation Code(s): I50.9 - HEART FAILURE, UNSPECIFIED (3) COPD exacerbation Code(s): J44.1 - CHRONIC OBSTRUCTIVE PULMONARY DISEASE W (ACUTE) EXACERBATION (4) Elevated troponin Code(s): R79.89 - OTHER SPECIFIED ABNORMAL FINDINGS OF BLOOD CHEMISTRY (5) NSTEMI (non-ST elevated myocardial infarction) Code(s): I21.4 - NON-ST ELEVATION (NSTEMI) MYOCARDIAL INFARCTION (6) Severe sepsis Code(s): A41.9 - SEPSIS, UNSPECIFIED ORGANISM R65.20 - SEVERE SEPSIS WITHOUT SEPTIC SHOCK (7) Diarrhea Code(s): R19.7 - DIARRHEA, UNSPECIFIED (8) Cough Code(s): R05 - COUGH (9) SOB (shortness of breath) Code(s): R06.02 - SHORTNESS OF BREATH Visit type - Emergency Visit Emergency Visit: Yes ED Registration Date: 09/22/16 Care time: The patient presented to the Emergency Department on the above date and was hospitalized for further evaluation of their emergent condition. - New Patient This patient is new to me today: No - Critical Care Critical Care patient: No <London Anaya - Last Filed: 09/29/16 11:57> Physical Exam: ATTENDING PHYSICIAN STATEMENT I saw and evaluated the patient. I reviewed the resident's note and discussed the case with the resident. I agree with the resident's findings and plan as documented. SUBJECTIVE: seen and evaluated at the bedside OBJECTIVE: resting comfortably, in no respiratory distress, diminished breath sounds, no wheezing/rhonchi ASSESSMENT AND PLAN: 81 year old man with PMH COPD, Dyslipidemia, gastric ca s/p Rtx/chemo and gastric resection (2012) and BPH admitted for hypercapnic respiratory failure due to acute on chronic COPD exacerbation COPD -continues to desaturate off oxygen and will likely need home O2; follow up exercise oximetry -was on solumedrol 80 Q6; will rapidly taper given that pt is well appearing clinically and pulm exam has improved -starte turdoza -starte symbicort -would likely benefit from pulmonary rehab NSTEMI -likely demand ischemia due to hypoxia and increased work of breathing -trop peaked at 5 and has since trended down -completed heparin drip -on asa/plavix. -cont betablocker/statin -cardio consult appreciated; agree with nuclear stress
[2016-09-29] MEDS: BUDESONIDE/FORMETEROL FUMARATE 160/4.5 mcg INHALER IH SCH ×2 (11:36→22:20)
[2016-09-29] MEDS: ACLIDINIUM BROMIDE 400 MCG/INH AERO.POWD IH SCH ×2 (11:37→22:20)
--- NOTE | 2016-09-29 12:19 | PN ---
Progress Note, Physician History of Present Illness: PULMONARY ALERT,NAD,-C/O CP ,SOB IMPROVING - Current Medication List Current Medications: Active Medications Aclidinium [place] (Tudorza -) 1 puff IH BID [facility] Last Admin: 09/29/16 11:37 Dose: 1 puff Albuterol Sulfate (Ventolin 0.083% Nebulizer Soln -) 1 amp NEB Q4HPO [facility] Last Admin: 09/29/16 09:56 Dose: 1 amp Amino Acids (Prostat Sugar-Free Packet -) 30 ml PO BID@0800,1730 [facility] Last Admin: 09/29/16 09:52 Dose: 30 ml Atorvastatin Calcium (Lipitor -) 80 mg PO HS [facility] Last Admin: 09/28/16 21:26 Dose: 80 mg Budesonide/Formoterol Fumarate (Symbicort 160/4.5mcg -) 2 puff IH BID [facility] Last Admin: 09/29/16 11:36 Dose: 2 puff Calcium Acetate (Phoslo -) 667 mg PO BIDWM [facility] Last Admin: 09/29/16 09:52 Dose: 667 mg Clopidogrel Bisulfate (Plavix -) 75 mg PO DAILY@2200 [facility] Last Admin: 09/28/16 21:26 Dose: 75 mg Heparin Sodium (Porcine) (Heparin -) 5,000 unit SQ TID [facility] Last Admin: 09/29/16 06:55 Dose: 5,000 unit Metoprolol Tartrate (Lopressor -) 50 mg PO BID [facility] Last Admin: 09/29/16 09:53 Dose: 50 mg Multivitamins/Minerals/Vitamin C (Tab-A-Vit -) 1 tab PO DAILY [facility] Last Admin: 09/29/16 09:53 Dose: 1 tab Nicotine (Nicoderm Patch -) 21 mg TD DAILY [facility] Last Admin: 09/29/16 09:53 Dose: 21 mg Prednisone (Deltasone -) 40 mg PO DAILY [facility] Tamsulosin HCl (Flomax -) 0.4 mg PO DAILY@0830 [facility] Last Admin: 09/29/16 09:53 Dose: 0.4 mg - Objective Vital Signs: Vital Signs Temperature 98.8 F 09/29/16 02:00 Pulse Rate 74 09/29/16 02:00 Respiratory Rate 20 09/29/16 02:00 Blood Pressure 144/79 09/29/16 02:00 O2 Sat by Pulse Oximetry (%) 98 09/28/16 21:00 Constitutional: Yes: Calm, Thin Eyes: Yes: WNL HENT: Yes: WNL Neck: Yes: WNL Cardiovascular: Yes: Regular Rate and Rhythm, S1, S2 Respiratory: Yes: Diminished Gastrointestinal: Yes: Normal Bowel Sounds, Soft Extremities: Yes: WNL Edema: No Labs: CBC, BMP 09/29/16 06:35 09/29/16 06:35 INR, PTT INR 1.45 (0.82-1.09) H 09/22/16 20:07 Assessment/Plan /P Acute on Chronic Hypercapneic and ?Hypoxic Respiratory Failure Acute COPD Exacerbation Acute NSTEMI Influenza A Pneumonia Sepsis Acute Kidney Injury Lactic Acidosis resolved Elevated LFTs - s/p antibiotics, tamiflu - O2 to keep SpO2 >90% - BiPAP at night and PRN during day - ASA, plavix - monitor LFTs - prednisone - inhaled bronchodilators - PO as tolerated - DVT/GI prophylaxis DR ADAIR
[2016-09-29 13:16] LABS: TROPONIN I 0.16 ng/ml (0.00-0.05)
[2016-09-29 19:49] LABS: TROPONIN I 0.14 ng/ml (0.00-0.05)
[2016-09-29] MEDS: ATORVASTATIN CA 80 MG TABLET (FP) PO SCH (22:20)
[2016-09-29] MEDS: CLOPIDOGREL BISULFATE 75 MG TABLET (FP) PO SCH (22:20)
[2016-09-30] MEDS: ALBUTEROL SO4 0.083% IH SOL 2.5 MG/3 ML VIAL.NEB. NEB SCH ×6 (02:40→22:10)
[2016-09-30 05:31] LABS: MCH 27.7 pg (25.7-33.7); MCHC 32.4 g/dl (32.0-35.9); MEAN CELL VOLUME 85.5 fl (80-96); MEAN PLT VOLUME 8.4 fl (7.5-11.1); PLATELET COUNT 144 K/MM3 (134-434); RDW 15.2 % (11.9-15.9); WHITE BLOOD COUNT 10.1 K/mm3 (4.0-10.0)
[2016-09-30 05:53] LABS: CALCIUM 8.5 mg/dL (8.5-10.1)
[2016-09-30] MEDS: HEPARIN NA (PORCINE) 5,000 UNITS/ML 1ML VIAL SQ SCH ×3 (06:58→23:11)
[2016-09-30 07:42] LABS: TROPONIN I 0.15 ng/ml (0.00-0.05)
[2016-09-30] MEDS: AMINO ACIDS/PROTEIN HYDROLYS SUGAR-FREE 30 ML PACKET PO SCH ×2 (08:00→18:12)
[2016-09-30] MEDS: CALCIUM ACETATE 667 MG CAPSULE (FP) PO SCH ×2 (08:00→18:11)
[2016-09-30] MEDS: TAMSULOSIN HCL 0.4 MG CAP.ER.24H (FP) PO SCH (08:30)
[2016-09-30] MEDS: METOPROLOL TARTRATE 50 MG TABLET (FP) PO SCH ×2 (10:00→23:11)
[2016-09-30] MEDS: ACLIDINIUM BROMIDE 400 MCG/INH AERO.POWD IH SCH ×3 (10:00→23:12)
[2016-09-30] MEDS: BUDESONIDE/FORMETEROL FUMARATE 160/4.5 mcg INHALER IH SCH ×3 (10:00→23:11)
[2016-09-30] MEDS: WATER IVPB ONE ×2 (10:11→12:18)
[2016-09-30] MEDS: DEXTROSE 5% IVPB ONE ×2 (10:11→12:18)
[2016-09-30] MEDS: DIPYRIDAMOLE STRESS TEST IVPB ONE ×2 (10:11→12:18)
--- NOTE | 2016-09-30 11:08 | PN ---
<Srikanth Aguirre - Last Filed: 09/30/16 11:02> Physical Exam: SUBJECTIVE: Patient seen and examined at bedside. Pt states he feels well today but has some increased cough but overall feels well. He denies any SOB, CP, abd pain, N/V/F/C. Still has diarrhea. Pt went down for stress test, refused, but was understood importance of requiring one at this time as explained by cardiology. OBJECTIVE: Vital Signs Temperature 97.0 F L 09/30/16 06:00 Pulse Rate 88 09/30/16 08:30 Respiratory Rate 22 09/30/16 08:30 Blood Pressure 146/74 09/30/16 08:30 O2 Sat by Pulse Oximetry (%) 98 09/29/16 21:00 GENERAL: The patient is awake, alert, and fully oriented, in no acute distress. HEAD: Normal with no signs of trauma. ENT: moist mucous membranes. NECK: Trachea midline, full range of motion LUNGS: Diminished breath sounds, no crackles or wheezing auscultated. HEART: Regular rate and rhythm, S1, S2 without murmur, rub or gallop. ABDOMEN: Soft, thin, nontender, nondistended, normoactive bowel sounds, no guarding, no rebound, no hepatosplenomegaly, no masses. EXTREMITIES: 2+ pulses, warm, well-perfused, no edema. NEUROLOGICAL: Normal speech, gait not observed. PSYCH: Normal mood, normal affect. SKIN: Warm, dry, normal turgor, no rashes or lesions noted Laboratory Results - last 24 hr 09/29/16 09/29/16 09/29/16 12:25 12:25 18:30 WBC RBC Hgb Hct MCV MCHC RDW Plt Count MPV Sodium Potassium Chloride Carbon Dioxide Anion Gap BUN Creatinine Random Glucose Calcium Creatine Kinase 184 D 166 CK-MB (CK-2) 10.351 H CK-MB (CK-2) Rel Index 5.6 H Troponin I 0.16 H D 0.14 H 09/30/16 09/30/16 09/30/16 05:12 05:12 05:12 WBC 10.1 H RBC 4.00 Hgb 11.1 L Hct 34.2 L MCV 85.5 MCHC 32.4 RDW 15.2 Plt Count 144 MPV 8.4 Sodium 146 H Potassium 4.0 Chloride 102 Carbon Dioxide 42 H Anion Gap 2 L BUN 43 H Creatinine 1.0 Random Glucose 123 H D Calcium 8.5 Creatine Kinase 133 CK-MB (CK-2) CK-MB (CK-2) Rel Index Troponin I 0.15 H Microbiology 09/29/16 01:00 Stool Clostridium difficile Antigen (ELLY) - Final 09/29/16 01:00 Stool Clostridium difficile Toxin Assay - Final 09/22/16 20:07 Blood - Peripheral Venous Blood Culture - Final NO GROWTH AFTER 5 DAYS INCUBATION 09/22/16 20:07 Blood - Peripheral Venous Blood Culture - Final NO GROWTH AFTER 5 DAYS INCUBATION 09/23/16 07:00 Urine For Antigen Detection Legionella Antigen - Final 09/23/16 07:00 Urine For Antigen Detection Streptococcus pneumoniae Antigen (M - Final 09/22/16 19:22 Nasopharyngeal Swab Influenza Types A,B Antigen (ELLY) - Final 09/22/16 19:22 Nasopharyngeal Swab - Final Active Medications Generic Name Dose Route Start Last Admin Trade Name Freq PRN Reason Stop Dose Admin Aclidinium [place] 1 puff 09/28/16 15:15 09/29/16 22:20 Tudorza - IH 1 puff BID [facility] Administration Albuterol Sulfate 1 amp 09/27/16 18:00 09/30/16 10:13 Ventolin 0.083% Nebulizer Soln - NEB 1 amp Q4HPO [facility] Administration Amino Acids 30 ml 09/27/16 17:30 09/29/16 18:42 Prostat Sugar-Free Packet - PO 30 ml BID@0800,1730 [facility] Administration Atorvastatin Calcium 80 mg 09/27/16 22:00 09/29/16 22:20 Lipitor - PO 80 mg HS [facility] Administration Budesonide/Formoterol Fumarate 2 puff 09/28/16 15:15 09/29/16 22:20 Symbicort 160/4.5mcg - IH 2 puff BID [facility] Administration Calcium Acetate 667 mg 09/27/16 17:30 09/29/16 18:42 Phoslo - PO 667 mg BIDWM [facility] Administration Clopidogrel Bisulfate 75 mg 09/27/16 22:00 09/29/16 22:20 Plavix - PO 75 mg DAILY@2200 [facility] Administration Heparin Sodium (Porcine) 5,000 unit 09/27/16 22:00 09/30/16 06:58 Heparin - SQ 5,000 unit TID [facility] Administration Metoprolol Tartrate 50 mg 09/28/16 22:00 09/29/16 22:21 Lopressor - PO 50 mg BID [facility] Administration Multivitamins/Minerals/Vitamin C 1 tab 09/28/16 10:00 09/29/16 09:53 Tab-A-Vit - PO 1 tab DAILY [facility] Administration Nicotine 21 mg 09/28/16 10:00 09/29/16 09:53 Nicoderm Patch - TD 21 mg DAILY [facility] Administration Prednisone 40 mg 09/30/16 10:00 Deltasone - PO DAILY [facility] Tamsulosin HCl 0.4 mg 09/28/16 08:30 09/29/16 09:53 Flomax - PO 0.4 mg DAILY@0830 [facility] Administration ASSESSMENT/PLAN: 81 yo M with h/o COPD, emphysema, asthma, current smoker, abdominal aneurysm, HLD, gastric CA s/p resection and radiation, BPH, recent diagnosis of left lung nodule admitted to ICU for severe sepsis secondary to flu in the setting of COPD exacerbation. -Sepsis secondary to flu -resolving -SOB -pre and post O2 sat to assess for home O2 necessity -solumedrol d/c'd -c/w prednisone 40 mg PO qd -Cough with sputum -c/w Chest PT -c/w Incentive spirometer -c/w prednisone 40 mg PO qd -Diarrhea -C. Diff negative -Leukocytosis -secondary to steroids -Acute hypercapnic respiratory failure; improving; on venturimask during day, oxygenating well with 3L NC as well. -resolving -secondary to COPD -c/w ventolin -NSTEMI -can do cardiac work up as outpatient -ECHO: trace TR, trace pulmonic valve regurg, otherwise unremarkable (nl LVSF ) -off heparin drip -Trops trending down -c/w clopidogrel 75 mg PO qd -Spoke with PCP Dr. Rdz who states he had stress test done on 05/10/16 which was normal -Stress test for today. -Transaminitis most likely secondary to sepsis -trending down, continue to monitor -ENZO secondary to sepsis most likely -resolved -BUN/Cr 43/1 -trending down -AAA -Stable in size, can continue to follow up as outpatient. -CHF, new onset most likely -currently not fluid overloaded, monitor I/Os -BPH -c/w flomax 0.4 mg PO qd -PPx -DVT: heparin 5000 units SQ TID -PT eval -FEN -Fat/Sodium controlled diet -Dietary on board -Solange leyva -Dispo: -Has bed in SNF, awaiting stress today for d/c or transfer if necessary. Smoking cessation especially with home/ambulation O2 use. Problem List - Problems (1) Acute renal insufficiency Code(s): N28.9 - DISORDER OF KIDNEY AND URETER, UNSPECIFIED (2) CHF exacerbation Code(s): I50.9 - HEART FAILURE, UNSPECIFIED (3) COPD exacerbation Code(s): J44.1 - CHRONIC OBSTRUCTIVE PULMONARY DISEASE W (ACUTE) EXACERBATION (4) Elevated troponin Code(s): R79.89 - OTHER SPECIFIED ABNORMAL FINDINGS OF BLOOD CHEMISTRY (5) NSTEMI (non-ST elevated myocardial infarction) Code(s): I21.4 - NON-ST ELEVATION (NSTEMI) MYOCARDIAL INFARCTION (6) Severe sepsis Code(s): A41.9 - SEPSIS, UNSPECIFIED ORGANISM R65.20 - SEVERE SEPSIS WITHOUT SEPTIC SHOCK (7) Diarrhea Code(s): R19.7 - DIARRHEA, UNSPECIFIED (8) Cough Code(s): R05 - COUGH (9) SOB (shortness of breath) Code(s): R06.02 - SHORTNESS OF BREATH Visit type - Emergency Visit Emergency Visit: Yes ED Registration Date: 09/22/16 Care time: The patient presented to the Emergency Department on the above date and was hospitalized for further evaluation of their emergent condition. - New Patient This patient is new to me today: No - Critical Care Critical Care patient: No <London Anaya - Last Filed: 09/30/16 12:27> Physical Exam: ATTENDING PHYSICIAN STATEMENT I saw and evaluated the patient. I reviewed the resident's note and discussed the case with the resident. I agree with the resident's findings and plan as documented. SUBJECTIVE: seen and evaluated at the bedside OBJECTIVE: resting comfortably, in no respiratory distress, diminished breath sounds, no wheezing/rhonchi ASSESSMENT AND PLAN: 81 year old man with PMH COPD, Dyslipidemia, gastric ca s/p Rtx/chemo and gastric resection (2012) and BPH admitted for hypercapnic respiratory failure due to acute on chronic COPD exacerbation COPD -continues to desaturate off oxygen and will likely need home O2; follow up exercise oximetry -was on solumedrol 80 Q6; will rapidly taper given that pt is well appearing clinically and pulm exam has improved -alverto reynolds -alverto symbicort -would likely benefit from pulmonary rehab NSTEMI -likely demand ischemia due to hypoxia and increased work of breathing -trop peaked at 5 and has since trended down -completed heparin drip -on asa/plavix. -cont betablocker/statin -cardio consult appreciated; agree with nuclear stress
--- NOTE | 2016-09-30 11:38 | PN ---
Progress Note, Physician History of Present Illness: seen and examined today in nad. no overnight events. no new complaints. - Current Medication List Current Medications: Active Medications Aclidinium [place] (Tudorza -) 1 puff IH BID [facility] Last Admin: 09/29/16 22:20 Dose: 1 puff Albuterol Sulfate (Ventolin 0.083% Nebulizer Soln -) 1 amp NEB Q4HPO [facility] Last Admin: 09/30/16 10:13 Dose: 1 amp Amino Acids (Prostat Sugar-Free Packet -) 30 ml PO BID@0800,1730 [facility] Last Admin: 09/29/16 18:42 Dose: 30 ml Atorvastatin Calcium (Lipitor -) 80 mg PO HS [facility] Last Admin: 09/29/16 22:20 Dose: 80 mg Budesonide/Formoterol Fumarate (Symbicort 160/4.5mcg -) 2 puff IH BID [facility] Last Admin: 09/29/16 22:20 Dose: 2 puff Calcium Acetate (Phoslo -) 667 mg PO BIDWM [facility] Last Admin: 09/29/16 18:42 Dose: 667 mg Clopidogrel Bisulfate (Plavix -) 75 mg PO DAILY@2200 [facility] Last Admin: 09/29/16 22:20 Dose: 75 mg Heparin Sodium (Porcine) (Heparin -) 5,000 unit SQ TID [facility] Last Admin: 09/30/16 06:58 Dose: 5,000 unit Metoprolol Tartrate (Lopressor -) 50 mg PO BID [facility] Last Admin: 09/29/16 22:21 Dose: 50 mg Multivitamins/Minerals/Vitamin C (Tab-A-Vit -) 1 tab PO DAILY [facility] Last Admin: 09/29/16 09:53 Dose: 1 tab Nicotine (Nicoderm Patch -) 21 mg TD DAILY [facility] Last Admin: 09/29/16 09:53 Dose: 21 mg Prednisone (Deltasone -) 40 mg PO DAILY [facility] Tamsulosin HCl (Flomax -) 0.4 mg PO DAILY@0830 [facility] Last Admin: 09/29/16 09:53 Dose: 0.4 mg - Objective Vital Signs: Vital Signs Temperature 97.0 F L 09/30/16 06:00 Pulse Rate 88 09/30/16 08:30 Respiratory Rate 22 09/30/16 08:30 Blood Pressure 146/74 09/30/16 08:30 O2 Sat by Pulse Oximetry (%) 98 09/29/16 21:00 Constitutional: Yes: No Distress, Calm, Thin Eyes: Yes: Conjunctiva Clear, EOM Intact, PERRL HENT: Yes: Atraumatic, Normocephalic Neck: Yes: Supple, Trachea Midline Cardiovascular: Yes: Regular Rate and Rhythm, S1, S2. No: Bradycardia, Tachycardia, Pulse Irregular, Bruit, JVD, Gallop, Murmur, Rub, S3, S4, Varicosities Respiratory: Yes: Diminished. No: Regular, Rales, Rhonchi, Wheezes Gastrointestinal: Yes: Normal Bowel Sounds, Soft. No: Distention, Tenderness Musculoskeletal: Yes: Muscle Weakness Extremities: Yes: WNL Edema: No Peripheral Pulses WNL: Yes Peripheral Pulses: Left Doralis Pedis: 2+, Right Dorsalis Pedis: 2+ Integumentary: Yes: WNL Neurological: Yes: Alert, Oriented Psychiatric: Yes: Alert, Oriented Labs: CBC, BMP 09/30/16 05:12 09/30/16 05:12 INR, PTT INR 1.45 (0.82-1.09) H 09/22/16 20:07 - ....Imaging Chest X-ray: Report Reviewed, Image Reviewed EKG: Report Reviewed, Image Reviewed Other: Report Reviewed, Image Reviewed Assessment/Plan PNA Influenza Gastric Ca NSTEMI Abdominal aortic aneurysm REC: NSTEMI- -cont Plavix 75mg daily -statin on hold for elevated LFTs -cont lopressor, also being used for PSVT (brief self limited episodes on tele). -echo showed normal LV systolic function -scheduled for persantine nuclear stress test today to assess ischemic burden and further risk stratify. Abdominal aortic aneurysm- -as per patient report being monitored at [facility] -cont beta [place] -HTN control with additional agents if needed
--- NOTE | 2016-09-30 13:33 | PN ---
Progress Note, Physician History of Present Illness: PULMONARY ALERT,NAD,LESS DYSPNEIC,-TACHYPNEA - Current Medication List Current Medications: Active Medications Aclidinium [place] (Tudorza -) 1 puff IH BID [facility] Last Admin: 09/30/16 10:00 Dose: Not Given Albuterol Sulfate (Ventolin 0.083% Nebulizer Soln -) 1 amp NEB Q4HPO [facility] Last Admin: 09/30/16 10:13 Dose: 1 amp Amino Acids (Prostat Sugar-Free Packet -) 30 ml PO BID@0800,1730 [facility] Last Admin: 09/30/16 08:00 Dose: Not Given Atorvastatin Calcium (Lipitor -) 80 mg PO HS [facility] Last Admin: 09/29/16 22:20 Dose: 80 mg Budesonide/Formoterol Fumarate (Symbicort 160/4.5mcg -) 2 puff IH BID [facility] Last Admin: 09/30/16 10:00 Dose: Not Given Calcium Acetate (Phoslo -) 667 mg PO BIDWM [facility] Last Admin: 09/30/16 08:00 Dose: Not Given Clopidogrel Bisulfate (Plavix -) 75 mg PO DAILY@2200 [facility] Last Admin: 09/29/16 22:20 Dose: 75 mg Heparin Sodium (Porcine) (Heparin -) 5,000 unit SQ TID [facility] Last Admin: 09/30/16 06:58 Dose: 5,000 unit Metoprolol Tartrate (Lopressor -) 50 mg PO BID [facility] Last Admin: 09/30/16 10:00 Dose: Not Given Multivitamins/Minerals/Vitamin C (Tab-A-Vit -) 1 tab PO DAILY [facility] Last Admin: 09/29/16 09:53 Dose: 1 tab Nicotine (Nicoderm Patch -) 21 mg TD DAILY [facility] Last Admin: 09/29/16 09:53 Dose: 21 mg Prednisone (Deltasone -) 40 mg PO DAILY [facility] Tamsulosin HCl (Flomax -) 0.4 mg PO DAILY@0830 [facility] Last Admin: 09/30/16 08:30 Dose: Not Given - Objective Vital Signs: Vital Signs Temperature 97.0 F L 09/30/16 06:00 Pulse Rate 88 09/30/16 08:30 Respiratory Rate 22 09/30/16 08:30 Blood Pressure 146/74 09/30/16 08:30 O2 Sat by Pulse Oximetry (%) 98 09/29/16 21:00 Constitutional: Yes: Calm, Thin Eyes: Yes: WNL HENT: Yes: WNL Neck: Yes: WNL Cardiovascular: Yes: Regular Rate and Rhythm, S1, S2 Respiratory: Yes: Diminished Gastrointestinal: Yes: Normal Bowel Sounds, Soft Extremities: Yes: WNL Edema: No Labs: CBC, BMP 09/30/16 05:12 09/30/16 05:12 INR, PTT INR 1.45 (0.82-1.09) H 09/22/16 20:07 Assessment/Plan /P Acute on Chronic Hypercapneic and ?Hypoxic Respiratory Failure clinically improving Acute COPD Exacerbation Acute NSTEMI Influenza A Pneumonia Sepsis Acute Kidney Injury Lactic Acidosis resolved Elevated LFTs - s/p antibiotics, tamiflu - O2 to keep SpO2 >90% - BiPAP at night and PRN during day - ASA, plavix - monitor LFTs - prednisone - inhaled bronchodilators - PO as tolerated - DVT/GI prophylaxis DR ADAIR
[2016-09-30] MEDS ORDERED: METOPROLOL TARTRATE 50 MG TABLET (FP) PO ONE (15:30)
[2016-09-30] MEDS: predniSONE 20 MG TABLET (UD) PO SCH (15:35)
[2016-09-30] MEDS: MULTIVITAMINS (DAILY MVI) TABLET (FP) PO SCH (15:36)
[2016-09-30] MEDS: ASPIRIN 81 MG CHEWABLE TABLETS PO SCH (15:36)
[2016-09-30] MEDS ORDERED: PT OWN MED DRAWER 7, Y5N ONE ×2 (15:48→23:04)
[2016-09-30] MEDS: NICOTINE 21 MG/24 HOURS TOPICAL PATCH TD SCH (15:52)
--- NOTE | 2016-09-30 17:04 | EKG ---
Test Reason : Blood Pressure : / mmHG Vent. Rate : 074 BPM Atrial Rate : 159 BPM P-R Int : 000 ms QRS Dur : 086 ms QT Int : 408 ms P-R-T Axes : 079 084 080 degrees QTc Int : 452 ms SINUS RHYTHM WITH MARKED SINUS ARRHYTHMIA ANTERIOR INFARCT , AGE UNDETERMINED ABNORMAL ECG Confirmed by PANFILO BAZAN, VENKAT ([id number]) on 09/30/2016 5:04:18 PM Referred By: Ayde LOPEZ Confirmed By:VENKAT WHITTAKER MD
[2016-09-30] MEDS: CLOPIDOGREL BISULFATE 75 MG TABLET (FP) PO SCH (23:11)
[2016-09-30] MEDS: ATORVASTATIN CA 80 MG TABLET (FP) PO SCH (23:11)
[2016-10-01] MEDS: ALBUTEROL SO4 0.083% IH SOL 2.5 MG/3 ML VIAL.NEB. NEB SCH ×2 (02:04→06:50)
[2016-10-01] MEDS: HEPARIN NA (PORCINE) 5,000 UNITS/ML 1ML VIAL SQ SCH (06:33)
[2016-10-01] MEDS ORDERED: LOPERAMIDE HCL 2 MG CAPSULE PO PRN (07:42)
[2016-10-01 08:27] LABS: ALBUMIN 2.7 g/dl (3.4-5.0); ALK PHOS 205 U/L (45-117); ANION GAP 4 (8-16); BILIRUBIN,TOTAL 0.6 mg/dL (0.2-1.0); CALCIUM 8.2 mg/dL (8.5-10.1); CO2 41 mmol/L (21-32); GLUCOSE,RANDOM 207 mg/dL (74-106); SGOT/AST 98 U/L (15-37); SGPT/ALT 314 U/L (12-78); TOT PROT 5.4 g/dl (6.4-8.2); TROPONIN I 0.11 ng/ml (0.00-0.05)
[2016-10-01] MEDS: AMINO ACIDS/PROTEIN HYDROLYS SUGAR-FREE 30 ML PACKET PO SCH (08:30)
[2016-10-01] MEDS: CALCIUM ACETATE 667 MG CAPSULE (FP) PO SCH (08:30)
[2016-10-01] MEDS: TAMSULOSIN HCL 0.4 MG CAP.ER.24H (FP) PO SCH (09:20)
[2016-10-01] MEDS: predniSONE 20 MG TABLET (UD) PO SCH (09:20)
[2016-10-01] MEDS: MULTIVITAMINS (DAILY MVI) TABLET (FP) PO SCH (09:20)
[2016-10-01] MEDS: ASPIRIN 81 MG CHEWABLE TABLETS PO SCH (09:20)
[2016-10-01] MEDS: BUDESONIDE/FORMETEROL FUMARATE 160/4.5 mcg INHALER IH SCH (09:21)
[2016-10-01] MEDS: METOPROLOL TARTRATE 50 MG TABLET (FP) PO SCH (09:21)
[2016-10-01] MEDS: NICOTINE 21 MG/24 HOURS TOPICAL PATCH TD SCH (09:21)
[2016-10-01] MEDS: ACLIDINIUM BROMIDE 400 MCG/INH AERO.POWD IH SCH (09:21)
--- NOTE | 2016-10-01 09:48 | PN ---
Progress Note, Physician Chief Complaint: stress MIBI normal He denies chest pain - Current Medication List Current Medications: Active Medications Aclidinium [place] (Tudorza -) 1 puff IH BID [facility] Last Admin: 10/01/16 09:21 Dose: 1 puff Albuterol Sulfate (Ventolin 0.083% Nebulizer Soln -) 1 amp NEB Q4HPO [facility] Last Admin: 10/01/16 06:50 Dose: 1 amp Amino Acids (Prostat Sugar-Free Packet -) 30 ml PO BID@0800,1730 [facility] Last Admin: 10/01/16 08:30 Dose: 30 ml Aspirin (Asa -) 81 mg PO DAILY [facility] Last Admin: 10/01/16 09:20 Dose: 81 mg Atorvastatin Calcium (Lipitor -) 80 mg PO HS [facility] Last Admin: 09/30/16 23:11 Dose: 80 mg Budesonide/Formoterol Fumarate (Symbicort 160/4.5mcg -) 2 puff IH BID [facility] Last Admin: 10/01/16 09:21 Dose: 2 puff Calcium Acetate (Phoslo -) 667 mg PO BIDWM [facility] Last Admin: 10/01/16 08:30 Dose: 667 mg Clopidogrel Bisulfate (Plavix -) 75 mg PO DAILY@2200 [facility] Last Admin: 09/30/16 23:11 Dose: 75 mg Heparin Sodium (Porcine) (Heparin -) 5,000 unit SQ TID [facility] Last Admin: 10/01/16 06:33 Dose: 5,000 unit Loperamide HCl (Imodium -) 2 mg PO Q8H PRN PRN Reason: DIARRHEA Metoprolol Tartrate (Lopressor -) 50 mg PO BID [facility] Last Admin: 10/01/16 09:21 Dose: 50 mg Multivitamins/Minerals/Vitamin C (Tab-A-Vit -) 1 tab PO DAILY [facility] Last Admin: 10/01/16 09:20 Dose: 1 tab Nicotine (Nicoderm Patch -) 21 mg TD DAILY [facility] Last Admin: 10/01/16 09:21 Dose: 21 mg Prednisone (Deltasone -) 40 mg PO DAILY [facility] Last Admin: 10/01/16 09:20 Dose: 40 mg Tamsulosin HCl (Flomax -) 0.4 mg PO DAILY@0830 [facility] Last Admin: 10/01/16 09:20 Dose: 0.4 mg - Objective Vital Signs: Vital Signs Temperature 98.1 F 10/01/16 02:00 Pulse Rate 79 10/01/16 02:00 Respiratory Rate 20 10/01/16 02:00 Blood Pressure 158/85 10/01/16 02:00 O2 Sat by Pulse Oximetry (%) 94 L 09/30/16 14:25 Constitutional: Yes: No Distress Cardiovascular: Yes: Regular Rate and Rhythm Respiratory: Yes: CTA Bilaterally Gastrointestinal: Yes: Soft Edema: No Neurological: Yes: Alert Labs: CBC, BMP 09/30/16 05:12 10/01/16 06:15 INR, PTT INR 1.45 (0.82-1.09) H 09/22/16 20:07 Laboratory Tests 09/30/16 10/01/16 05:12 06:15 WBC 10.1 H Hgb 11.1 L Plt Count 144 Potassium 3.7 Creatinine 1.0 Troponin I 0.11 H Assessment/Plan Assessment/Plan PNA Influenza Gastric Ca NSTEMI Abdominal aortic aneurysm REC: NSTEMI-stress test negative, no ischemia, normal LVEF -cont Plavix 75mg daily -statin on hold for elevated LFTs -cont lopressor, also being used for PSVT (brief self limited episodes on tele). -echo showed normal LV systolic function Abdominal aortic aneurysm- -as per patient report being monitored at [facility] -cont beta [place] -HTN control with additional agents if needed
[2016-10-01 11:10] VITALS: BP 153/81; PULSE 82; TEMP 97.7
--- NOTE | 2016-10-01 14:41 | DS ---
Physical Exam: SUBJECTIVE: Patient seen and examined OBJECTIVE: Vital Signs Period Temp Pulse Resp BP Sys/Hernández Pulse Ox Last 24 Hr 97.7 F-98.3 F 69-100 20-22 153-452/81-103 PHYSICAL EXAM GENERAL: The patient is awake, alert, and fully oriented, in no acute distress. HEAD: Normal with no signs of trauma. EYES: PERRL, extraocular movements intact, sclera anicteric, conjunctiva clear. ENT: Ears normal, nares patent, oropharynx clear without exudates, moist mucous membranes. NECK: Trachea midline, full range of motion, supple. LUNGS: Breath sounds equal, clear to auscultation bilaterally, no wheezes, no crackles, no accessory muscle use. HEART: Regular rate and rhythm, S1, S2 without murmur, rub or gallop. ABDOMEN: Soft, nontender, nondistended, normoactive bowel sounds, no guarding, no rebound, no hepatosplenomegaly, no masses. EXTREMITIES: 2+ pulses, warm, well-perfused, no edema. NEUROLOGICAL: Cranial nerves II through XII grossly intact. Normal speech, gait not observed. PSYCH: Normal mood, normal affect. SKIN: Warm, dry, normal turgor, no rashes or lesions noted. LABS Laboratory Results - last 24 hr 10/01/16 06:15 Sodium 142 Potassium 3.7 Chloride 97 L Carbon Dioxide 41 H Anion Gap 4 L BUN 37 H Creatinine 1.0 Creat Clearance w eGFR > 60 Random Glucose 207 H D Calcium 8.2 L Total Bilirubin 0.6 AST 98 H D ALT 314 H D Alkaline Phosphatase 205 H Troponin I 0.11 H Total Protein 5.4 L Albumin 2.7 L HOSPITAL COURSE: Date of Admission:09/22/16 Date of Discharge: 10/01/16 <London Anaya - Last Filed: 10/01/16 14:51> Physical Exam: SUBJECTIVE: Patient seen and examined at bedside. COntinues to feel better. Diarrhea is improving, denies SOB at rest, improved cough, decreased sputum production. Denies N/V/F/C, CP, abdominal pain. OBJECTIVE: Vital Signs Temperature 97.7 F 10/01/16 10:00 Pulse Rate 82 10/01/16 10:00 Respiratory Rate 20 10/01/16 10:00 Blood Pressure 153/81 10/01/16 10:00 O2 Sat by Pulse Oximetry (%) 94 L 09/30/16 14:25 PHYSICAL EXAM GENERAL: The patient is awake, alert, and fully oriented, in no acute distress. HEAD: Normal with no signs of trauma. ENT: moist mucous membranes. NECK: Trachea midline, full range of motion LUNGS: Diminished breath sounds, no crackles or wheezing auscultated. HEART: Regular rate and rhythm, S1, S2 without murmur, rub or gallop. ABDOMEN: Soft, thin, nontender, nondistended, normoactive bowel sounds, no guarding, no rebound, no hepatosplenomegaly, no masses. EXTREMITIES: 2+ pulses, warm, well-perfused, no edema. NEUROLOGICAL: Normal speech, gait not observed. PSYCH: Normal mood, normal affect. SKIN: Warm, dry, normal turgor, no rashes or lesions noted LABS Laboratory Results - last 24 hr 10/01/16 06:15 Sodium 142 Potassium 3.7 Chloride 97 L Carbon Dioxide 41 H Anion Gap 4 L BUN 37 H Creatinine 1.0 Creat Clearance w eGFR > 60 Random Glucose 207 H D Calcium 8.2 L Total Bilirubin 0.6 AST 98 H D ALT 314 H D Alkaline Phosphatase 205 H Troponin I 0.11 H Total Protein 5.4 L Albumin 2.7 L HOSPITAL COURSE: Date of Admission:09/22/16 Date of Discharge: 10/01/16 Pre-hospital course: The patient is a 81 year old male with a significant past medical history of COPD, emphysema, asthma, current smoker, abdominal aneurysm, HLD, s/p gastric CA resection, BPH, recent diagnosis of left lung nodule who presents to the emergency department with shortness of breath since yesterday evening which worsened today. He has basal SOB. He is complaining of chest pressure that was present for two days but currently doesn't have it. The pt is also complaining of weakness. He denies palpitations. The pt has difficulty speaking due his SOB so history was taken mainly from his and daughter.The also report that the patient has been progressively worsening. Hospital course: Patient was admitted to the ICU for sepsis secondary to flu (influenza a positive on rapid test), and acute resp failure in setting of COPD exacerbation , requiring bipap. Pt was treated with tamiflu, azithromycin (for 5 days), and ceftriaxone for flu and sepsis. He was also started on solumedrol which was eventually changed to prednisone once pt began improving. He was in the ICU for 5 days before being transferred to the floors. Initial CXR in ER showed possible R sided pna but follow CXRs did not show any infiltrates or signs of congestion. For COPD was also treated with symbicort and tudorza. Pt also developed NSTEMI during admission most likely secondary to demand ischemia from sepsis with trops peaking at 5. He was treated for his NSTEMI with asa,plavix, heparin ggt protocol, lopressor, lipitor. After which trops trended down. Echo (09/23/16) showed:trace TR, trace pulmonic valve regurg, otherwise unremarkable (nl LVSF). Persantine stress test (09/30/16) was done after pt stabilized which showed normal ECG during stress test. Pt was also found to have AAA that was approximately 4.9 cm in diameter. PCP was called and we were told that they have been tracking it and the size has not changed. Pt developed diarrhea after anti-biotics/starting pro-stat. C. diff was negative. Diarrhea slowly began improving after it began. Smoking cessation was advised. Pt was discharged with plavix, asa, lopressor, prednisone 40 mg for 3 days, and sent to pulmonary rehab facility. He will need to follow up with his PCP, his solar sales energy advisor, medical care evaluation specialist (if he does not have one, Dr. Walker was recommended). He was also told to f/u with PCP regarding elevate alk phos as he would be able to track it and recommend GI if necessary. Minutes to complete discharge: 35 <Srikanth Aguirre - Last Filed: 10/01/16 16:00> Discharge Summary Hospital Course: ATTENDING PHYSICIAN STATEMENT I saw and evaluated the patient. I reviewed the resident's note and discussed the case with the resident. I agree with the resident's findings and plan as documented. SUBJECTIVE: seen and evaluated at the bedside OBJECTIVE: resting comfortably, in no respiratory distress, diminished breath sounds, no wheezing/rhonchi ASSESSMENT AND PLAN: 81 year old man with PMH COPD, Dyslipidemia, gastric ca s/p Rtx/chemo and gastric resection (2012) and BPH admitted for hypercapnic respiratory failure due to acute on chronic COPD exacerbation COPD -was on solumedrol 80 Q6; will rapidly taper given that pt is well appearing clinically and pulm exam has improved -started turdoza -started symbicort -for discharge to pulmonary rehab NSTEMI -likely demand ischemia due to hypoxia and increased work of breathing -trop peaked at 5 and has since trended down -completed heparin drip -on asa/plavix. -cont betablocker/statin -cardio consult appreciated; nuclear stress showed no ischemia and echo showed normal LV function - Home Medications Comprehensive Discharge Medication List: Ambulatory Orders Tamsulosin HCl 0.4 mg PO DAILY 08/08/12 Albuterol Sulfate [Proventil HFA Inhaler -] 1 - 2 inh PO TID 11/22/13 Salmeterol/Fluticasone [Advair 250Mcg/50Mcg -] 1 inh PO BID 11/22/13 Ipratropium [place] [Atrovent Hfa] 12.9 gm IH PRN PRN #1 [email or web address] 04/04/15 Amino Acids/Protein Hydrolys [Prostat Sugar-Free Packet -] 30 ml PO BID@0800, 1730 packet 10/01/16 Aspirin [ASA -] 81 mg PO DAILY tab.chew 10/01/16 Clopidogrel Bisulfate [Plavix -] 75 mg PO DAILY@2200 tablet 10/01/16 Loperamide HCl [Imodium -] 2 mg PO Q8H PRN #0 capsule 10/01/16 Metoprolol Tartrate [Lopressor -] 50 mg PO BID tablet 10/01/16 Multivitamins [Multivit ([facility] Formulary)] 1 tab PO DAILY tab 10/01/16 Prednisone [Deltasone -] 40 mg PO DAILY #6 tablet 10/01/16 <[place] Anaya - Last Filed: 10/01/16 14:51> Reason For Visit: ELEV TROPONIN/COPD EXAC/ ACUTE [place] INSUFF - Home Medications Comprehensive Discharge Medication List: Ambulatory Orders Tamsulosin HCl 0.4 mg PO DAILY 08/08/12 Albuterol Sulfate [Proventil HFA Inhaler -] 1 - 2 inh PO TID 11/22/13 Salmeterol/Fluticasone [Advair 250Mcg/50Mcg -] 1 inh PO BID 11/22/13 Ipratropium [place] [Atrovent Hfa] 12.9 gm IH PRN PRN #1 hfa.aer.ad 04/04/15 Amino Acids/Protein Hydrolys [Prostat Sugar-Free Packet -] 30 ml PO BID@0800, 1730 packet 10/01/16 Aspirin [ASA -] 81 mg PO DAILY tab.chew 10/01/16 Clopidogrel Bisulfate [Plavix -] 75 mg PO DAILY@2200 tablet 10/01/16 Loperamide HCl [Imodium -] 2 mg PO Q8H PRN #0 capsule 10/01/16 Metoprolol Tartrate [Lopressor -] 50 mg PO BID tablet 10/01/16 Multivitamins [Multivit ([facility] Formulary)] 1 tab PO DAILY tab 10/01/16 Prednisone [Deltasone -] 40 mg PO DAILY #6 tablet 10/01/16 <Srikanth Aguirre - Last Filed: 10/01/16 16:00> Condition: Improved - Instructions Diet, Activity, Other Instructions: You will need to follow up with your primary care doctor Dr. Rdz in 1 week. You will also need to follow up with a solar sales energy advisor in light of your recent heart attack at the hospital. Please follow up with your solar sales energy advisor in 1 week as well. Please follow up with your lung doctor as well in 1 week. If you do not have one you can see Dr. Walker who was seeing you in the hospital. You will continue to take Prednisone 40 mg once a day for 3 more days to help with your breathing. For your diarrhea you can take imodium over the counter. If you begin to develop fevers, chills, or worsening shortness of breath come back to the ER. You will also continue to take lopressor 50 mg twice a day for high blood pressure. Continue taking plavix 75 mg daily as well in light of your recent heart attack. You must follow up with your solar sales energy advisor to assess the continued and duration of use for this medication. Your lovastatin will be held for now because of elevated liver enzymes. Once your primary care physician or solar sales energy advisor clears you, you may resume taking it. You must stop smoking to help preserve your lung function. Do not smoke while using oxygen as it is flammable and can cause ahn. Your alkaline phosphatase blood test is still high. I recommend you follow it up with your primary care physician who will be able to track and recommend a GI doctor if necessary. You will continue to rehab and improve your breathing while doing pulmonary rehabilitation. Referrals: Boogie Walker MD [Staff Physician] - STAFF,NOT ON [Primary Care Provider] - 1 Week (Dr. Rdz ) Disposition: [facility] FACILITY Problem List - Problems (1) Acute renal insufficiency Code(s): N28.9 - DISORDER OF KIDNEY AND URETER, UNSPECIFIED (2) CHF exacerbation Code(s): I50.9 - HEART FAILURE, UNSPECIFIED (3) COPD exacerbation Code(s): J44.1 - CHRONIC OBSTRUCTIVE PULMONARY DISEASE W (ACUTE) EXACERBATION (4) Elevated troponin Code(s): R79.89 - OTHER SPECIFIED ABNORMAL FINDINGS OF BLOOD CHEMISTRY (5) NSTEMI (non-ST elevated myocardial infarction) Code(s): I21.4 - NON-ST ELEVATION (NSTEMI) MYOCARDIAL INFARCTION (6) Severe sepsis Code(s): A41.9 - SEPSIS, UNSPECIFIED ORGANISM R65.20 - SEVERE SEPSIS WITHOUT SEPTIC SHOCK (7) Diarrhea Code(s): R19.7 - DIARRHEA, UNSPECIFIED (8) Cough Code(s): R05 - COUGH (9) SOB (shortness of breath) Code(s): R06.02 - SHORTNESS OF BREATH <Srikanth Aguirre - Last Filed: 10/01/16 16:00> This patient is new to me today: No Emergency Visit: Yes ED Registration Date: 09/22/16 Care time: The patient presented to the Emergency Department on the above date and was hospitalized for further evaluation of their emergent condition. Critical Care patient: No - Discharge Referral Referred to [facility] Med [facility].C[facility] No <Srikanth Aguirre - Last Filed: 10/01/16 16:00>
== END 2016-10-01 12:41 | DRG 871 ==
LOC: JER 18:40 → JERBED 23:03 → JICU 09-23 00:31 → J5S 09-27 18:26
PROVIDERS: ADMIT Internal Medicine; ATTEND Internal Medicine
PROC: 5A09357 Assistance with Respiratory Ventilation, Less than 24 Consecutive Hours, Continuous Positive Airway Pressure (ICD-10-PCS; principal; 2016-09-22)
DX: A41.9 Sepsis, unspecified organism (principal); I21.4 Non-ST elevation (NSTEMI) myocardial infarction; J96.02 Acute respiratory failure with hypercapnia; J96.01 Acute respiratory failure with hypoxia; J11.00 Influenza due to unidentified influenza virus with unspecified type of pneumonia; R64 Cachexia; J44.1 Chronic obstructive pulmonary disease with (acute) exacerbation; J45.901 Unspecified asthma with (acute) exacerbation; N17.9 Acute kidney failure, unspecified; E87.2 Acidosis; E46 Unspecified protein-calorie malnutrition; Z68.1 Body mass index [BMI] 19.9 or less, adult; I47.1 Supraventricular tachycardia; R65.20 Severe sepsis without septic shock; E78.5 Hyperlipidemia, unspecified; F17.210 Nicotine dependence, cigarettes, uncomplicated; N40.0 Benign prostatic hyperplasia without lower urinary tract symptoms; Z85.00 Personal history of malignant neoplasm of unspecified digestive organ; D69.6 Thrombocytopenia, unspecified; R91.1 Solitary pulmonary nodule; I71.4 Abdominal aortic aneurysm, without rupture; R19.7 Diarrhea, unspecified
CPT/HCPCS: 36415; 36600; 71010-TC; 76700-TC; 76775-TC; 78452-TC; 80048; 80053; 82375; 82550; 82553; 82803; 83050; 83605; 83735; 83880; 84100; 84484; 85025; 85027; 85610; 85730; 86704; 86706; 86708; 86803; 87040; 87324; 87340; 87449; 87804; 87899; 90670; 93005; 93010; 93017; 93306-TC; 94010; 94640; 94660; 94761; 97116-GP; 97162-PG; 99284-25; A9502; G0008; J1245; J1644; Q2037

== ENCOUNTER 2016-10-08 17:06 | Emergency (ER) | payer OTHER, BC ==
[2016-10-08 17:31] VITALS: TEMP 97.4; BMI 16.0
--- NOTE | 2016-10-08 17:31 | PDOC ---
History of Present Illness - History of Present Illness Initial Comments: 10/08/16 18:50 Patient is an 81 year old male with significant medical hx of COPD, emphysema, asthma, current smoker, abdominal aneurysm, HLD, s/p gastric CA s/p resection, BPH, recent admission for jorge, nstemi, copd exacerabation, who has been sent from [facility] to rule out DVT. Patient was noted to have bilateral lower extremity edema that extends from his feet up to the knees. The patient is accompanied by family members who report that his legs have been swollen for the past nine months. The patient denies any lower extremity pain, chest pain, back pain, headache shortness of breath, cough, hemoptysis, or orthopnea. Patient was recently started back up on Lasix. The patient was recently discharged from admission on 10/01/16 for shortness of breath. <Gila Ramirez - Last Filed: 10/08/16 18:50> - General History Source: Patient Exam Limitations: No Limitations <Himanshu Arambula - Last Filed: 10/08/16 19:16> - General Stated Complaint: EDEMA Time Seen by Provider: 10/08/16 17:12 Past History <Gila Ramirez - Last Filed: 10/08/16 18:50> - Past Medical History Anemia: No Asthma: No Cancer: Yes (stomach) Cardiac Disorders: Yes (mild nstemi) CVA: No COPD: Yes CHF: No Dementia: No Diabetes: No GI Disorders: Yes (GERD,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) Disorders: Yes (BPH) HTN: No Hypercholesterolemia: Yes Liver Disease: No Seizures: No Thyroid Disease: No - Surgical History Abdominal Surgery: Yes (STOMACH CA) Appendectomy: No Cardiac Surgery: No Cholecystectomy: No GI Surgery: Yes (1/3 stomach removed) Lung Surgery: No Neurologic Surgery: No Orthopedic Surgery: No - Immunization History Immunization Up to Date: Yes - Psycho/Social/Smoking Cessation Hx Anxiety: No Suicidal Ideation: No Smoking History: Current every day smoker Have you smoked in the past 12 months: Yes Number of Cigarettes Smoked Daily: 20 Information on smoking cessation initiated: Yes 'Breaking Loose' booklet given: 10/08/16 Hx Alcohol Use: No Drug/Substance Use Hx: No Substance Use Type: None Hx Substance Use Treatment: No <Himanshu Arambula - Last Filed: 10/08/16 19:16> - Past Medical History Allergies/Adverse Reactions: Allergies Allergy/AdvReac Type Severity Reaction Status Date / Time No Known Allergies Allergy Verified 10/08/16 17:24 Home Medications: Ambulatory Orders Tamsulosin HCl 0.4 mg PO DAILY 08/08/12 Albuterol Sulfate [Proventil HFA Inhaler -] 1 - 2 inh PO TID 11/22/13 Salmeterol/Fluticasone [Advair 250Mcg/50Mcg -] 1 inh PO BID 11/22/13 Ipratropium [place] [Atrovent Hfa] 12.9 gm IH PRN PRN #1 hfa.aer.ad 04/04/15 Aspirin [ASA -] 81 mg PO DAILY tab.chew 10/01/16 Clopidogrel Bisulfate [Plavix -] 75 mg PO DAILY@2200 tablet 10/01/16 Metoprolol Tartrate [Lopressor -] 50 mg PO BID tablet 10/01/16 Multivitamins [Multivit ([facility])] 1 tab PO DAILY tab 10/01/16 Furosemide [Lasix -] 40 mg PO DAILY 10/08/16 Review of Systems - Review of Systems Comments:: 10/08/16 18:51 CONSTITUTIONAL: No reported: Fever, Chills, Diaphoresis, Generalized Weakness, Malaise, Loss of Appetite HEENT: No reported: Rhinorrhea, Nasal Congestion, Throat Pain, Throat Swelling, Difficulty Swallowing, Mouth Swelling, Ear Pain, Eye Pain, Visual Changes CARDIOVASCULAR: Reported: Lower Extremity Edema No reported: Chest Pain, Syncope, Palpitations, Irregular Heart Rate, Lightheadedness RESPIRATORY: No reported: Cough, Shortness of Breath, SOB with Exertion, Orthopnea, Wheezing , Stridor, Hemoptysis GASTROINTESTINAL: No reported: Abdominal pain, Abdominal Distension, Nausea, Vomiting, Diarrhea, Constipation, Melena, Hematochezia GENITOURINARY: No reported: Dysuria, Frequency, Urgency, Hesitancy, Flank Pain, Genital Pain MUSCULOSKELETAL: No reported: Myalgia, Arthralgia, Joint Swelling, Back pain, Neck Pain SKIN: No reported: Rash, Itching, Pallor HEMEATOLOGIC/IMMUNOLOGIC: No reported: Easy Bleeding, Easy Bruising, Lymphadenopathy, Frequent infections ENDOCRINE: No reported: Unexplained Weight Gain, Unexplained Weight Loss, Heat Intolerance , Cold Intolerance NEUROLOGIC: No reported: Headache, Focal Weakness, Paresthesias, Vertigo, Lightheadedness, Unsteady Gait, Seizure, Mental Status Changes, Incontinence PSYCHIATRIC: No reported: Anxiety, Depression <AshleyAnthonyGila - Last Filed: 10/08/16 18:50> *Physical Exam - Vital Signs Last Vital Signs Temp Pulse Resp BP Pulse Ox 97.4 F L 71 16 118/65 95 10/08/16 17:25 10/08/16 17:25 10/08/16 17:25 10/08/16 17:25 10/08/16 17:38 - Physical Exam Comments: 10/08/16 18:51 GENERAL: The patient is awake, alert, and fully oriented, Nontoxic - in no acute distress.cachectic appearing HEAD: Normocephalic, atraumatic. EYES: extraocular movements intact, sclera anicteric, conjunctiva clear. ENT: Normal voice, Moist mucous membranes. NECK: Normal range of motion, supple LUNGS: Breath sounds equal, clear to auscultation bilaterally. No wheezes, no rhonchi, no rales. HEART: Regular rate and rhythm, normal S1 and S2 without murmur, rub or gallop. ABDOMEN: Soft,thin nontender, normoactive bowel sounds. No guarding, no rebound. . No CVA tenderness EXTREMITIES: b/l +2 pitting edema to knees, neg homans sign, no erythema/ induration/tenderness to palpation NEUROLOGICAL: No facial assymetry, Normal speech, moving all 4 extremities spontnaoeulsy. PSYCH: Normal mood, normal affect. SKIN: Warm, Dry, normal turgor <AshleyGila - Last Filed: 10/08/16 18:50> - Vital Signs Last Vital Signs Temp Pulse Resp BP Pulse Ox 97.4 F L 71 16 118/65 95 10/08/16 17:25 10/08/16 17:25 10/08/16 17:25 10/08/16 17:25 10/08/16 17:25 <Himanshu Arambula - Last Filed: 10/08/16 19:16> ED Treatment Course - LABORATORY CBC & Chemistry Diagram: 10/08/16 17:38 10/08/16 17:38 - ADDITIONAL ORDERS Additional order review: Laboratory Results 10/08/16 17:38 Sodium 144 Potassium 3.9 Chloride 97 L Carbon Dioxide 40 H Anion Gap 7 L BUN 25 H D Creatinine 1.3 D Creat Clearance w eGFR 53.12 Random Glucose 126 H D Calcium 7.8 L Total Bilirubin 0.5 AST 69 H D ALT 141 H D Alkaline Phosphatase 162 H D Total Protein 5.1 L Albumin 2.6 L 10/08/16 17:38 RBC 3.63 L MCV 86.3 MCHC 32.4 RDW 15.4 MPV 8.3 Neutrophils % 78.9 Lymphocytes % 11.1 D Monocytes % 7.3 D Eosinophils % 2.1 D Basophils % 0.6 D <AshleyGila - Last Filed: 10/08/16 18:50> - LABORATORY CBC & Chemistry Diagram: 10/08/16 17:38 10/08/16 17:38 <Howard Arambulaan - Last Filed: 10/08/16 19:16> Medical Decision Making - Medical Decision Making 10/08/16 17:31 81y M hx of copd, hld, gastric ca s/p resection, bph, recent hx of jorge, troponin leak/sepsis discharged to rehab approx 1 week ago send to the ED for evaluation of b/l leg swelling to r/o dvt. The pt states he has had leg swelling for many months and is on laxis and was recently started back on his lasix 2 days ago - pt denies any leg pain,sob, cough, cp, hemoptysis. on exam pt cacectic but in no acute distress, b/l pitting edema to knees both legs without any tenderness, erythema, induration, neg homans sign. pulses symmetric , will ck duplex to r/o dvt - will ck basic labs to ru renal insufficency as cuse of increase leg swelling will reassess A portion of this note was documented by scribe services under my direction. I have reviewed the details of the note, within reason, and agree with the documentation with the following case summary and management plan written by me 10/08/16 18:59 labs reviewed sligtly abnormal but improved from discharge from hospital awaiting US, if neative for dvt will likely dc back to [place] 10/08/16 19:13 negative for dvt will dc back to rehab will continue pt on lasix return precautions were discussed I discussed the physical exam findings, ancillary test results and final diagnoses with the patient. I answered all of the patient's questions. The patient was satisfied with the care received and felt comfortable with the discharge plan and treatment plan. The patient will call their primary care physician within 24 hours to arrange follow-up and will return to the Emergency Department with any new, persistent or worsening symptoms. <Himanshu Arambula - Last Filed: 10/08/16 19:16> *DC/Admit/Observation/Transfer - Attestations Scribe Attestion: 10/08/16 18:52 Documentation prepared by Gila Ramirez, acting as medical assistant ob gyn for Himanshu Arambula MD. <Gila Ramirez - Last Filed: 10/08/16 18:50> - Discharge Dispostion Admit: No <Himanshu Arambula - Last Filed: 10/08/16 19:16> Diagnosis at time of Disposition: Lower extremity edema Qualifiers: Laterality: bilateral Qualified Code(s): R60.0 - Localized edema - Discharge Dispostion Disposition: [facility] Condition at time of disposition: Stable - Referrals Referrals: Chalo Headley MD [Primary Care Provider] - - Patient Instructions Printed Discharge Instructions: DI for Peripheral Edema -- Bilateral Additional Instructions: Return to the emergency department immediately with ANY new, persistent or worsening symptoms. Continue your lasix You MUST call and follow up with your doctor tomorrow for further evaluation of your symptoms. Results were discussed with you. Please make sure your doctor reviews the results of your emergency evaluation. Print Language: AMHARIC
[2016-10-08 18:03] LABS: BASOPHIL 0.6 % (0-2.0); EOSINOPHIL 2.1 % (0-4.5); MCH 27.9 pg (25.7-33.7); MCHC 32.4 g/dl (32.0-35.9); MEAN CELL VOLUME 86.3 fl (80-96); MEAN PLT VOLUME 8.3 fl (7.5-11.1); NEUTROPHILS 78.9 % (42.8-82.8); PLATELET COUNT 174 K/MM3 (134-434); RDW 15.4 % (11.9-15.9); WHITE BLOOD COUNT 4.9 K/mm3 (4.0-10.0)
[2016-10-08 18:34] LABS: ALBUMIN 2.6 g/dl (3.4-5.0); BILIRUBIN,TOTAL 0.5 mg/dL (0.2-1.0); CALCIUM 7.8 mg/dL (8.5-10.1); CREATININE 1.3 mg/dL (0.7-1.3); TOT PROT 5.1 g/dl (6.4-8.2)
[2016-10-09 00:51] VITALS: BP 131/74; PULSE 69
== END 2016-10-08 23:07 ==
LOC: JER 17:06
DX: R60.0 Localized edema (principal); J44.9 Chronic obstructive pulmonary disease, unspecified; E78.5 Hyperlipidemia, unspecified; F17.210 Nicotine dependence, cigarettes, uncomplicated; Z85.00 Personal history of malignant neoplasm of unspecified digestive organ
CPT/HCPCS: 36415; 80053; 85025; 93970-TC; 99283-25

== ENCOUNTER 2017-05-02 12:29 | Inpatient (IN) | payer OTHER, BC ==
--- NOTE | 2017-05-02 13:33 | PDOC ---
Attending Attestation - Resident Resident Name: Rohit Mcneill - ED Attending Attestation I have performed the following: I have examined & evaluated the patient, The case was reviewed & discussed with the resident, I agree w/resident's findings & plan, Exceptions are as noted - HPI HPI: 05/02/17 15:49 Generalized Weakness Not feeling well.... lightheaded - Physicial Exam PE: 05/02/17 15:52 Non Toxic, NAD - Medical Decision Making 05/02/17 15:[address] Mcneill, Silent [place] possibly a day or two ago.
--- NOTE | 2017-05-02 13:35 | PDOC ---
History of Present Illness - General Chief Complaint: Lightheaded Stated Complaint: Weakness Time Seen by Provider: 05/02/17 13:32 History Source: Patient, Family Exam Limitations: No Limitations - History of Present Illness Initial Comments: 05/02/17 13:35 Patient is an 81 year old with significant cardiac history, COPD, non operable lung cancer, CHF presenting with 2 hours after becoming lightheaded on standing. Patient endorsed first became light headed with standing up from the toilet and then again with getting up to go to the refrigerator. The symptoms lasted a few minutes and then resolved. Patient endorsed eating a normal breakfast and is not light headed in the ED. Denies room spinning, fever, DELUCA, vision changes, ringing in ears, CP, SOB Patient is full code with non operable lung cancer with a 1 year prognosis. Uses 2L O2 at home which has not recently been increasing. 05/02/17 14:19 05/02/17 14:45 Past History - Past Medical History Allergies/Adverse Reactions: Allergies Allergy/AdvReac Type Severity Reaction Status Date / Time No Known Allergies Allergy Verified 10/08/16 17:24 Home Medications: Ambulatory Orders Tamsulosin HCl 0.4 mg PO DAILY 08/08/12 Albuterol Sulfate [Proventil HFA Inhaler -] 1 - 2 inh PO TID 11/22/13 Salmeterol/Fluticasone [Advair 250Mcg/50Mcg -] 1 inh PO BID 11/22/13 Ipratropium [place] [Atrovent Hfa] 12.9 gm IH PRN PRN #1 hfa.aer.ad 04/04/15 Clopidogrel Bisulfate [Plavix -] 75 mg PO DAILY@2200 tablet 10/01/16 Metoprolol Tartrate [Lopressor -] 50 mg PO BID tablet 10/01/16 Furosemide [Lasix -] 20 mg PO DAILY 10/08/16 Lovastatin [Altoprev] 20 mg PO DAILY 05/02/17 Tiotropium [place] [Spiriva] 1 inh PO DAILY 05/02/17 Anemia: No Asthma: No Cancer: Yes (stomach lung) Cardiac Disorders: Yes (mild nstemi) CVA: No COPD: Yes CHF: No Dementia: No Diabetes: No GI Disorders: Yes (GERD,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) Disorders: Yes (BPH) HTN: No Hypercholesterolemia: Yes Liver Disease: No Seizures: No Thyroid Disease: No - Surgical History Abdominal Surgery: Yes (STOMACH CA) Appendectomy: No Cardiac Surgery: No Cholecystectomy: No GI Surgery: Yes (1/3 stomach removed) Lung Surgery: No Neurologic Surgery: No Orthopedic Surgery: No - Immunization History Immunization Up to Date: Yes - Psycho/Social/Smoking Cessation Hx Anxiety: No Suicidal Ideation: No Smoking History: Former smoker Have you smoked in the past 12 months: No Number of Cigarettes Smoked Daily: 20 Information on smoking cessation initiated: No 'Breaking Loose' booklet given: 10/08/16 Hx Alcohol Use: No Drug/Substance Use Hx: No Substance Use Type: None Hx Substance Use Treatment: No Review of Systems - Review of Systems Able to Perform ROS?: Yes Is the patient limited Monegasque proficient: No Constitutional: No: Fever HEENTM: Yes: Hearing Loss (left chronic, right recent). No: Recent change in vision Respiratory: No: Shortness of Breath Cardiac (ROS): Yes: Edema (Baseline), Lightheadedness. No: Chest Pain ABD/GI: No: Constipated, Diarrhea, Nausea, Vomiting *Physical Exam - Vital Signs Last Vital Signs Temp Pulse Resp BP Pulse Ox 98.1 F 55 L 20 166/81 100 05/02/17 12:54 05/02/17 12:54 05/02/17 12:54 05/02/17 12:54 05/02/17 12:54 - Physical Exam General Appearance: Yes: Cachetic, Thin. No: Apparent Distress HEENT: positive: EOMI, ENDER, Hearing Decreased Respiratory/Chest: positive: Lungs Clear, Decreased Breath Sounds. negative: Chest Tender, Respiratory Distress, Accessory Muscle Use, Crackles, Wheezing Cardiovascular: positive: Regular Rhythm, Bradycardia. negative: Murmur Gastrointestinal/Abdominal: positive: Normal Bowel Sounds, Flat. 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 negative: Confused ED Treatment Course - LABORATORY CBC & Chemistry Diagram: 05/02/17 14:30 05/02/17 16:50 Medical Decision Making - Medical Decision Making 05/02/17 13:35 05/02/17 15:22 CBC WBC 4.5 K/mm3 (4.0-10.0) 05/02/17 14:30 RBC 3.62 M/mm3 (4.00-5.60) L 05/02/17 14:30 Hgb 10.2 GM/dL (11.7-16.9) L 05/02/17 14:30 Hct 31.1 % (35.4-49) L 05/02/17 14:30 MCV 86.0 fl (80-96) 05/02/17 14:30 MCH 28.3 pg (25.7-33.7) 05/02/17 14:30 MCHC 32.9 g/dl (32.0-35.9) 05/02/17 14:30 RDW 17.9 % (11.9-15.9) H D 05/02/17 14:30 Plt Count 236 K/MM3 (134-434) D 05/02/17 14:30 MPV 8.7 fl (7.5-11.1) 05/02/17 14:30 Neutrophils % 62.4 % (42.8-82.8) D 05/02/17 14:30 Lymphocytes % 24.0 % (8-40) D 05/02/17 14:30 Monocytes % 10.9 % (3.8-10.2) H 05/02/17 14:30 Eosinophils % 1.9 % (0-4.5) 05/02/17 14:30 Basophils % 0.8 % (0-2.0) 05/02/17 14:30 mild anemia consistent last visit 05/02/17 15:26 CMP Sodium 143 mmol/L (136-145) 05/02/17 14:30 Potassium 5.3 mmol/L (3.5-5.1) H D 05/02/17 14:30 Chloride 103 mmol/L (98-107) 05/02/17 14:30 Carbon Dioxide 38 mmol/L (21-32) H 05/02/17 14:30 Anion Gap 2 (8-16) L 05/02/17 14:30 BUN 12 mg/dL (7-18) D 05/02/17 14:30 Creatinine 1.1 mg/dL (0.7-1.3) 05/02/17 14:30 Creat Clearance w eGFR > 60 (>60) 05/02/17 14:30 Random Glucose 83 mg/dL (74-106) D 05/02/17 14:30 Calcium 8.2 mg/dL (8.5-10.1) L 05/02/17 14:30 Total Bilirubin 0.4 mg/dL (0.2-1.0) 05/02/17 14:30 AST 54 U/L (15-37) H D 05/02/17 14:30 ALT 36 U/L (12-78) D 05/02/17 14:30 Alkaline Phosphatase 90 U/L (45-117) D 05/02/17 14:30 Creatine Kinase 260 IU/L (39-308) 05/02/17 14:30 Creatine Kinase Index 1.9 % (0.0-5.0) 05/02/17 14:30 CK-MB (CK-2) 5.000 ng/mL (0.5-3.6) H 05/02/17 14:30 Troponin I < 0.02 ng/ml (0.00-0.05) D 05/02/17 14:30 Total Protein 5.7 g/dl (6.4-8.2) L 05/02/17 14:30 Albumin 2.5 g/dl (3.4-5.0) L 05/02/17 14:30 Hyperkalemia, slight hemolosys noted, rerun BMP Elevated CO2 consistent with hyperventilation elevated CK-MB, 5.0, Troponin wnl, consistent with SC a few days ago consult cardiology admit *DC/Admit/Observation/Transfer Diagnosis at time of Disposition: Silent myocardial infarction - Discharge Dispostion Condition at time of disposition: Stable Admit: Yes - Attestations Physician Attestion: 05/02/17 18:35 I, Dr. Rohit Mcneill, attest that this document has been prepared under my direction and personally reviewed by me in its entirety. I further attest, that it accurately reflects all work, treatment, procedures and medical decision -making performed by me.
[2017-05-02 14:47] LABS: BASOPHIL 0.8 % (0-2.0); EOSINOPHIL 1.9 % (0-4.5); MCH 28.3 pg (25.7-33.7); MCHC 32.9 g/dl (32.0-35.9); MEAN PLT VOLUME 8.7 fl (7.5-11.1); NEUTROPHILS 62.4 % (42.8-82.8); PLATELET COUNT 236 K/MM3 (134-434); RDW 17.9 % (11.9-15.9); WHITE BLOOD COUNT 4.5 K/mm3 (4.0-10.0)
[2017-05-02 15:01] LABS: ALBUMIN 2.5 g/dl (3.4-5.0); ANION GAP 2 (8-16); BILIRUBIN,TOTAL 0.4 mg/dL (0.2-1.0); CALCIUM 8.2 mg/dL (8.5-10.1); CO2 38 mmol/L (21-32); CREATININE 1.1 mg/dL (0.7-1.3); GLUCOSE,RANDOM 83 mg/dL (74-106); SGPT/ALT 36 U/L (12-78); TOT PROT 5.7 g/dl (6.4-8.2)
[2017-05-02 15:04] LABS: ALK PHOS 90 U/L (45-117); TROPONIN I < 0.02 ng/ml (0.00-0.05)
[2017-05-02 15:05] LABS: CPK 260 IU/L (39-308); SGOT/AST 54 U/L (15-37)
--- NOTE | 2017-05-02 17:16 | EKG ---
Test Reason : Blood Pressure : / mmHG Vent. Rate : 049 BPM Atrial Rate : 049 BPM P-R Int : 146 ms QRS Dur : 072 ms QT Int : 444 ms P-R-T Axes : 082 082 079 degrees QTc Int : 401 ms SINUS BRADYCARDIA POSSIBLE LEFT ATRIAL ENLARGEMENT BORDERLINE ECG WHEN COMPARED WITH ECG OF 29-SEP-2016 11:22, VENT. RATE HAS DECREASED BY 25 BPM Confirmed by MAURICIO BRAMBILA MD ([id number]) on 05/02/2017 5:16:31 PM Referred By: Confirmed By:MAURICIO BRAMBILA MD
[2017-05-02 17:51] LABS: ANION GAP 3 (8-16); CALCIUM 8.2 mg/dL (8.5-10.1); CO2 40 mmol/L (21-32); CREATININE 1.1 mg/dL (0.7-1.3); GLUCOSE,RANDOM 154 mg/dL (74-106)
--- NOTE | 2017-05-02 20:22 | HP ---
Admitting History and Physical - Primary Care Physician PCP: Zach Jeffrey - Admission History of Present Illness: 81 year old male brought with a significant past medical history of COPD, emphysema, HLD, asthmatic, gastric CA, Post resect, BPH, chf, lung ca presenting with 2 hours after becoming lightheaded on standing. Patient endorsed first became light headed with standing up from the toilet and then again with getting up to go to the refrigerator. The symptoms lasted a few minutes and then resolved. Patient endorsed eating a normal breakfast and is not light headed in the ED. Denies room spinning, fever, DELUCA, vision changes, ringing in ears, CP, SOB - Past Medical History Cardiovascular: Yes: CHF Pulmonary: Yes: Cancer (lung), COPD Heme/Onc: Yes: Other (STOMACH AND LUNG CA) - Smoking History Smoking history: Former smoker Have you smoked in the past 12 months: No Aproximately how many cigarettes per day: 20 - Alcohol/Substance Use Hx Alcohol Use: No Home Medications - Allergies Allergies/Adverse Reactions: Allergies Allergy/AdvReac Type Severity Reaction Status Date / Time No Known Allergies Allergy Verified 10/08/16 17:24 - Home Medications Home Medications: Ambulatory Orders Tamsulosin HCl 0.4 mg PO DAILY 08/08/12 Albuterol Sulfate [Proventil HFA Inhaler -] 1 - 2 inh PO TID 11/22/13 Salmeterol/Fluticasone [Advair 250Mcg/50Mcg -] 1 inh PO BID 11/22/13 Ipratropium [place] [Atrovent Hfa] 12.9 gm IH PRN PRN #1 hfa.aer.ad 04/04/15 Clopidogrel Bisulfate [Plavix -] 75 mg PO DAILY@2200 tablet 10/01/16 Metoprolol Tartrate [Lopressor -] 50 mg PO BID tablet 10/01/16 Furosemide [Lasix -] 20 mg PO DAILY 10/08/16 Lovastatin [Altoprev] 20 mg PO DAILY 05/02/17 Tiotropium [place] [Spiriva] 1 inh PO DAILY 05/02/17 Physical Examination Vital Signs: Vital Signs Temperature 98.1 F 05/02/17 12:54 Pulse Rate 50 L 05/02/17 16:00 Respiratory Rate 16 05/02/17 16:00 Blood Pressure 140/67 05/02/17 16:00 O2 Sat by Pulse Oximetry (%) 100 05/02/17 16:00 Constitutional: Yes: No Distress HENT: Yes: Atraumatic Neck: Yes: Supple Cardiovascular: Yes: Regular Rate and Rhythm Respiratory: Yes: CTA Bilaterally Gastrointestinal: Yes: Normal Bowel Sounds Extremities: Yes: WNL Neurological: Yes: Alert, Oriented Problem List - Problems (1) Silent myocardial infarction Assessment/Plan: TELE MONITORING FU CARDIAC PROFILE CARDIOLOGY CONSULT CONTINUE HOME MEDS Code(s): I21.3 - ST ELEVATION (STEMI) MYOCARDIAL INFARCTION OF UNS SITE (2) CHF exacerbation Code(s): I50.9 - HEART FAILURE, UNSPECIFIED (3) CAD (coronary artery disease) Code(s): I25.10 - ATHSCL HEART DISEASE OF [place] CORONARY ARTERY W/O ANG PCTRS Qualifiers: Coronary Disease-Associated Artery/Lesion type: [place] artery [place] vs. transplanted heart: [place] heart Associated angina: without angina Qualified Code(s): I25.10 - Atherosclerotic heart disease of [place] coronary artery without angina pectoris (4) COPD (chronic obstructive pulmonary disease) Code(s): J44.9 - CHRONIC OBSTRUCTIVE PULMONARY DISEASE, UNSPECIFIED Qualifiers : COPD type: emphysema Emphysema type: unspecified Qualified Code( s): J43.9 - Emphysema, unspecified (5) Dizziness Assessment/Plan: RESOLVED Code(s): R42 - DIZZINESS AND GIDDINESS (6) Gastric cancer Code(s): C16.9 - MALIGNANT NEOPLASM OF STOMACH, UNSPECIFIED Qualifiers: Malignant neoplasm of stomach location: unspecified location Qualified Code(s): C16.9 - Malignant neoplasm of stomach, unspecified (7) Hypercholesterolemia Assessment/Plan: ON MEDS STABLE Code(s): E78.00 - PURE HYPERCHOLESTEROLEMIA, UNSPECIFIED (8) NSTEMI (non-ST elevated myocardial infarction) Code(s): I21.4 - NON-ST ELEVATION (NSTEMI) MYOCARDIAL INFARCTION Assessment/Plan Laboratory Tests 05/02/17 05/02/17 05/02/17 14:30 14:30 16:50 WBC 4.5 RBC 3.62 L Hgb 10.2 L Hct 31.1 L MCV 86.0 MCH 28.3 MCHC 32.9 RDW 17.9 H D Plt Count 236 D MPV 8.7 Neutrophils % 62.4 D Lymphocytes % 24.0 D Monocytes % 10.9 H Eosinophils % 1.9 Basophils % 0.8 Sodium 143 144 Potassium 5.3 H D 3.8 D Chloride 103 101 Carbon Dioxide 38 H 40 H Anion Gap 2 L 3 L BUN 12 D 11 Creatinine 1.1 1.1 Creat Clearance w eGFR > 60 Random Glucose 83 D 154 H D Calcium 8.2 L 8.2 L Total Bilirubin 0.4 AST 54 H D ALT 36 D Alkaline Phosphatase 90 D Creatine Kinase 260 Creatine Kinase Index 1.9 CK-MB (CK-2) 5.000 H Troponin I < 0.02 D Total Protein 5.7 L Albumin 2.5 L Active Medications Generic Name Dose Route Start Last Admin Trade Name Freq PRN Reason Stop Dose Admin Atorvastatin Calcium 10 mg 05/02/17 22:00 05/02/17 22:25 Lipitor - PO Not Given HS [facility] Clopidogrel Bisulfate 75 mg 05/02/17 22:00 05/02/17 22:25 Plavix - PO 75 mg DAILY@2200 [facility] Administration Furosemide 40 mg 05/03/17 12:52 Lasix - PO DAILY [facility] Sodium Chloride 1,000 mls @ 75 mls/hr 05/03/17 18:00 Normal Saline - IV ASDIR [facility] Metoprolol Tartrate 50 mg 05/02/17 22:00 05/03/17 09:53 Lopressor - PO Not Given BID [facility] Non-Formulary Medication 12.9 gm 05/02/17 20:47 Ipratropium [place] [Atrovent Hfa] IH PRN PRN SHORTNESS OF BREATH Tamsulosin HCl 0.4 mg 05/03/17 10:00 05/03/17 09:53 Flomax - PO 0.4 mg DAILY [facility] Administration
[2017-05-02 20:40] LABS: URINE APPEARANCE SLCLOUDY; URINE BILIRUBIN NEGATIVE (NEGATIVE); URINE BLOOD NEGATIVE (NEGATIVE); URINE COLOR STRAW; URINE GLUCOSE (UA) NEGATIVE (NEGATIVE); URINE KETONE NEGATIVE (NEGATIVE); URINE LEUK ESTERASE NEGATIVE (NEGATIVE); URINE NITRITE NEGATIVE (NEGATIVE); URINE PROTEIN NEGATIVE (NEGATIVE); URINE UROBILINOGEN NEGATIVE mg/dL (0.2-1.0)
[2017-05-02] MEDS ORDERED: PATIENT'S OWN MEDICATION (NON-FORMULARY) (Ipratropium Bromide [Atrovent Hfa] 12.9 GM) IH PRN (20:47)
[2017-05-02] MEDS ORDERED: HEPARIN NA (PORCINE) 5,000 UNITS/ML 1ML VIAL SQ SCH (22:00)
[2017-05-02] MEDS ORDERED: CLOPIDOGREL BISULFATE 75 MG TABLET (FP) ONE (22:18)
[2017-05-02] MEDS ORDERED: METOPROLOL TARTRATE 50 MG TABLET (FP) ONE (22:18)
[2017-05-02] MEDS: ATORVASTATIN CA 10 MG TABLET (FP) PO SCH (22:25)
[2017-05-02] MEDS: CLOPIDOGREL BISULFATE 75 MG TABLET (FP) PO SCH (22:25)
[2017-05-02] MEDS: METOPROLOL TARTRATE 50 MG TABLET (FP) PO SCH (22:25)
[2017-05-03 00:55] LABS: CPK 207 IU/L (39-308)
[2017-05-03 00:56] LABS: TROPONIN I < 0.02 ng/ml (0.00-0.05)
[2017-05-03 02:53] VITALS: BMI 16.4
[2017-05-03 07:37] LABS: CPK 194 IU/L (39-308); TROPONIN I < 0.02 ng/ml (0.00-0.05)
[2017-05-03] MEDS: TAMSULOSIN HCL 0.4 MG CAP.ER.24H (FP) PO SCH (09:53)
[2017-05-03] MEDS: METOPROLOL TARTRATE 50 MG TABLET (FP) PO SCH ×2 (09:53→21:57)
[2017-05-03] MEDS ORDERED: FUROSEMIDE 20 MG TABLET (FP) PO SCH (10:00)
[2017-05-03] MEDS ORDERED: PATIENT'S OWN MEDICATION (NON-FORMULARY) (Lovastatin [Altoprev] 20 MG) PO SCH (10:00)
--- NOTE | 2017-05-03 12:38 | CON.CARD ---
Consult Consult Specialty:: Cardiology Referred by:: Dr. Jeffrey Reason for Consultation:: Cardiac evaluation - History of Present Illness Chief Complaint: Dizziness History of Present Illness: Patient is an 81 year old male with underlying history of COPD/ emphysema, hypercholesterolemia, gastric CA s/p resection, BPH and lung CA who presents with complaints of dizziness when standing. Dizziness lasted few minutes and then resolved. He denies syncope. He denies chest pain, shortenss of breath or palpitations. He denies paroxysmal nocturnal dyspnea or orthopnea. He denies fever or chills. He denies headache. Cardiology consultation was called for further evaluation. - History Source History Provided By: Patient, Medical Record Limitations to Obtaining History: Clinical Condition - Past Medical History Cardio/Vascular: Yes: CHF Pulmonary: Yes: Cancer (lung CA), COPD Gastrointestinal: Yes: Cancer (Gastric CA) - Past Surgical History Additional Surgical History: Gastric surgery - Alcohol/Substance Use Hx Alcohol Use: No - Smoking History Smoking history: Former smoker Have you smoked in the past 12 months: No Aproximately how many cigarettes per day: 20 Home Medications - Allergies Allergies/Adverse Reactions: Allergies Allergy/AdvReac Type Severity Reaction Status Date / Time No Known Allergies Allergy Verified 10/08/16 17:24 - Home Medications Home Medications: Ambulatory Orders Tamsulosin HCl 0.4 mg PO DAILY 08/08/12 Albuterol Sulfate [Proventil HFA Inhaler -] 1 - 2 inh PO TID 11/22/13 Salmeterol/Fluticasone [Advair 250Mcg/50Mcg -] 1 inh PO BID 11/22/13 Ipratropium [place] [Atrovent Hfa] 12.9 gm IH PRN PRN #1 hfa.aer.ad 04/04/15 Clopidogrel Bisulfate [Plavix -] 75 mg PO DAILY@2200 tablet 10/01/16 Metoprolol Tartrate [Lopressor -] 50 mg PO BID tablet 10/01/16 Furosemide [Lasix -] 20 mg PO DAILY 10/08/16 Lovastatin [Altoprev] 20 mg PO DAILY 05/02/17 Tiotropium [place] [Spiriva] 1 inh PO DAILY 05/02/17 Family Disease History - Family Disease History Other Family History: History of malignancy Review of Systems - Review of Systems Constitutional: denies: Chills, Fever Cardiovascular: denies: Chest Pain, Palpitations, Shortness of Breath Respiratory: denies: Cough, Hemoptysis, Orthopnea, PND, SOB, SOB on Exertion Gastrointestinal: denies: Abdominal Pain, Constipation, Diarrhea, Melena, Nausea , Rectal Bleeding, Vomiting Musculoskeletal: denies: Joint Pain Neurological: reports: Dizziness, Weakness. denies: Headache, Numbness, Seizure , Syncope Vital Signs: Vital Signs Temperature 98 F 05/03/17 08:21 Pulse Rate 51 L 05/03/17 08:21 Respiratory Rate 20 05/03/17 08:21 Blood Pressure 105/66 05/03/17 08:21 O2 Sat by Pulse Oximetry (%) 96 05/03/17 08:00 Neck: Yes: Supple Respiratory: Yes: Diminished Gastrointestinal: Yes: Normal Bowel Sounds, Soft. No: Tenderness Cardiovascular: Yes: Regular Rate and Rhythm JVD: No Carotid Bruit: No PMI: Non-Displaced Heart Sounds: Yes: S1, S2 Murmur: Yes: Systolic Murmur, Grade 1 Edema: Yes Edema: LLE: 1+, RLE: 1+ - Other Data Labs, Other Data: 05/02/17 05/02/17 05/03/17 22:00 23:30 05:35 Troponin I Cancelled < 0.02 < 0.02 Laboratory Results - last 24 hr 05/02/17 05/02/17 05/02/17 14:30 14:30 16:50 WBC 4.5 RBC 3.62 L Hgb 10.2 L Hct 31.1 L MCV 86.0 MCH 28.3 MCHC 32.9 RDW 17.9 H D Plt Count 236 D MPV 8.7 Neutrophils % 62.4 D Lymphocytes % 24.0 D Monocytes % 10.9 H Eosinophils % 1.9 Basophils % 0.8 Sodium 143 144 Potassium 5.3 H D 3.8 D Chloride 103 101 Carbon Dioxide 38 H 40 H Anion Gap 2 L 3 L BUN 12 D 11 Creatinine 1.1 1.1 Creat Clearance w eGFR > 60 Random Glucose 83 D 154 H D Calcium 8.2 L 8.2 L Total Bilirubin 0.4 AST 54 H D ALT 36 D Alkaline Phosphatase 90 D Creatine Kinase 260 Creatine Kinase Index 1.9 CK-MB (CK-2) 5.000 H Troponin I < 0.02 D Total Protein 5.7 L Albumin 2.5 L Urine Color Urine Appearance Urine pH Ur Specific [place] Urine Protein Urine Glucose (UA) Urine Ketones Urine Blood Urine Nitrite Urine Bilirubin Urine Urobilinogen Ur Leukocyte Esterase 05/02/17 05/02/17 05/02/17 20:29 22:00 23:30 WBC RBC Hgb Hct MCV MCH MCHC RDW Plt Count MPV Neutrophils % Lymphocytes % Monocytes % Eosinophils % Basophils % Sodium Potassium Chloride Carbon Dioxide Anion Gap BUN Creatinine Creat Clearance w eGFR Random Glucose Calcium Total Bilirubin AST ALT Alkaline Phosphatase Creatine Kinase Cancelled 207 Creatine Kinase Index 3.7 CK-MB (CK-2) 7.665 H Troponin I Cancelled < 0.02 Total Protein Albumin Urine Color Straw Urine Appearance Slcloudy Urine pH 8.0 Ur Specific [place] 1.020 Urine Protein Negative Urine Glucose (UA) Negative Urine Ketones Negative Urine Blood Negative Urine Nitrite Negative Urine Bilirubin Negative Urine Urobilinogen Negative Ur Leukocyte Esterase Negative 05/03/17 05:35 WBC RBC Hgb Hct MCV MCH MCHC RDW Plt Count MPV Neutrophils % Lymphocytes % Monocytes % Eosinophils % Basophils % Sodium Potassium Chloride Carbon Dioxide Anion Gap BUN Creatinine Creat Clearance w eGFR Random Glucose Calcium Total Bilirubin AST ALT Alkaline Phosphatase Creatine Kinase 194 Creatine Kinase Index 3.8 CK-MB (CK-2) 7.381 H Troponin I < 0.02 Total Protein Albumin Urine Color Urine Appearance Urine pH Ur Specific [place] Urine Protein Urine Glucose (UA) Urine Ketones Urine Blood Urine Nitrite Urine Bilirubin Urine Urobilinogen Ur Leukocyte Esterase Sinus bradycardia, no ST-T abnormality Echo: Pending Imaging - Results Chest X-ray: Report Reviewed (Unremarkable) EKG: Report Reviewed Problem List - Problems (1) NSTEMI (non-ST elevated myocardial infarction) Code(s): I21.4 - NON-ST ELEVATION (NSTEMI) MYOCARDIAL INFARCTION (2) CAD (coronary artery disease) Code(s): I25.10 - ATHSCL HEART DISEASE OF [place] CORONARY ARTERY W/O ANG PCTRS Qualifiers: Coronary Disease-Associated Artery/Lesion type: [place] artery [place] vs. transplanted heart: [place] heart Associated angina: without angina Qualified Code(s): I25.10 - Atherosclerotic heart disease of [place] coronary artery without angina pectoris (3) Dizziness Code(s): R42 - DIZZINESS AND GIDDINESS (4) Hypercholesterolemia Code(s): E78.00 - PURE HYPERCHOLESTEROLEMIA, UNSPECIFIED (5) COPD (chronic obstructive pulmonary disease) Code(s): J44.9 - CHRONIC OBSTRUCTIVE PULMONARY DISEASE, UNSPECIFIED Qualifiers : COPD type: emphysema Emphysema type: unspecified Qualified Code( s): J43.9 - Emphysema, unspecified (6) Gastric cancer Code(s): C16.9 - MALIGNANT NEOPLASM OF STOMACH, UNSPECIFIED Qualifiers: Malignant neoplasm of stomach location: unspecified location Qualified Code(s): C16.9 - Malignant neoplasm of stomach, unspecified Assessment/Plan 1. Dizziness, etiology to be determined 2. Hypertension 3. Hypercholesterolemia 4. History of gastric CA s/p resection 5. Sinus bradycardia 6. COPD/emphysema 7. CAD - post NSTEMI earlier this year PLAN: 1. Transthoracic echocardiography to assess LV/RV and valvular function (follow up) 2. Continue Metoprolol as tolerated 3. Continue Plavix 4. Continue statin therapy 5. Continue diuretics and monitor I/Os and renal function Further plans are to follow Maximino De Leon MD
[2017-05-03] MEDS ORDERED: FUROSEMIDE 40 MG TABLET (FP) PO SCH (12:52)
[2017-05-03] MEDS ORDERED: INSULIN DETEMIR 100 UNITS/ML MDV SQ ONE (14:20)
[2017-05-03] MEDS ORDERED: SODIUM CHLORIDE 1,000 ML IV SCH (18:00)
--- NOTE | 2017-05-03 18:07 | PN ---
Progress Note, Physician - Current Medication List Current Medications: Active Medications Atorvastatin Calcium (Lipitor -) 10 mg PO HS [facility] Last Admin: 05/02/17 22:25 Dose: Not Given Clopidogrel Bisulfate (Plavix -) 75 mg PO DAILY@2200 [facility] Last Admin: 05/02/17 22:25 Dose: 75 mg Furosemide (Lasix -) 40 mg PO DAILY [facility] Sodium Chloride (Normal Saline -) 1,000 mls @ 75 mls/hr IV ASDIR [facility] Metoprolol Tartrate (Lopressor -) 50 mg PO BID [facility] Last Admin: 05/03/17 09:53 Dose: Not Given Non-Formulary Medication (Ipratropium [place] [Atrovent Hfa]) 12.9 gm IH PRN PRN PRN Reason: SHORTNESS OF BREATH Tamsulosin HCl (Flomax -) 0.4 mg PO DAILY [facility] Last Admin: 05/03/17 09:53 Dose: 0.4 mg - Objective Vital Signs: Vital Signs Temperature 97.6 F 05/03/17 14:00 Pulse Rate 70 05/03/17 14:00 Respiratory Rate 20 05/03/17 14:00 Blood Pressure 133/58 05/03/17 14:00 O2 Sat by Pulse Oximetry (%) 96 05/03/17 08:00 Constitutional: Yes: No Distress HENT: Yes: Atraumatic Neck: Yes: Supple Cardiovascular: Yes: Regular Rate and Rhythm Respiratory: Yes: CTA Bilaterally Gastrointestinal: Yes: Normal Bowel Sounds Extremities: Yes: WNL Neurological: Yes: Alert Problem List - Problems (1) Silent myocardial infarction Assessment/Plan: TELE MONITORING FU CARDIAC PROFILE CARDIOLOGY CONSULT CONTINUE HOME MEDS IV HYDRATION FOR ELEVATED CK Code(s): I21.3 - ST ELEVATION (STEMI) MYOCARDIAL INFARCTION OF [facility] SITE (2) CHF exacerbation Code(s): I50.9 - HEART FAILURE, UNSPECIFIED (3) CAD (coronary artery disease) Code(s): I25.10 - ATHSCL HEART DISEASE OF [place] CORONARY ARTERY W/O ANG PCTRS Qualifiers: Coronary Disease-Associated Artery/Lesion type: [place] artery [place] vs. transplanted heart: [place] heart Associated angina: without angina Qualified Code(s): I25.10 - Atherosclerotic heart disease of [place] coronary artery without angina pectoris (4) COPD (chronic obstructive pulmonary disease) Code(s): J44.9 - CHRONIC OBSTRUCTIVE PULMONARY DISEASE, UNSPECIFIED Qualifiers : COPD type: emphysema Emphysema type: unspecified Qualified Code( s): J43.9 - Emphysema, unspecified (5) Dizziness Assessment/Plan: RESOLVED Code(s): R42 - DIZZINESS AND GIDDINESS (6) Gastric cancer Code(s): C16.9 - MALIGNANT NEOPLASM OF STOMACH, UNSPECIFIED Qualifiers: Malignant neoplasm of stomach location: unspecified location Qualified Code(s): C16.9 - Malignant neoplasm of stomach, unspecified (7) Hypercholesterolemia Assessment/Plan: ON MEDS STABLE Code(s): E78.00 - PURE HYPERCHOLESTEROLEMIA, UNSPECIFIED (8) NSTEMI (non-ST elevated myocardial infarction) Code(s): I21.4 - NON-ST ELEVATION (NSTEMI) MYOCARDIAL INFARCTION
[2017-05-03] MEDS: ATORVASTATIN CA 10 MG TABLET (FP) PO SCH (21:57)
[2017-05-03] MEDS: CLOPIDOGREL BISULFATE 75 MG TABLET (FP) PO SCH (21:57)
[2017-05-04 07:30] LABS: BASOPHIL 1.5 % (0-2.0); EOSINOPHIL 2.3 % (0-4.5); MCHC 31.2 g/dl (32.0-35.9); MEAN CELL VOLUME 86.5 fl (80-96); NEUTROPHILS 64.3 % (42.8-82.8); PLATELET COUNT 177 K/MM3 (134-434); RDW 17.3 % (11.9-15.9); WHITE BLOOD COUNT 4.3 K/mm3 (4.0-10.0)
[2017-05-04 08:03] LABS: ALBUMIN 2.2 g/dl (3.4-5.0); ANION GAP 2 (8-16); CALCIUM 8.3 mg/dL (8.5-10.1); CO2 38 mmol/L (21-32); GLUCOSE,RANDOM 77 mg/dL (74-106)
[2017-05-04 08:06] LABS: ALK PHOS 85 U/L (45-117); BILIRUBIN,TOTAL 0.2 mg/dL (0.2-1.0); CREATININE 0.9 mg/dL (0.7-1.3); SGOT/AST 33 U/L (15-37); SGPT/ALT 31 U/L (12-78); TOT PROT 4.7 g/dl (6.4-8.2)
[2017-05-04] MEDS: METOPROLOL TARTRATE 50 MG TABLET (FP) PO SCH (09:17)
[2017-05-04] MEDS: TAMSULOSIN HCL 0.4 MG CAP.ER.24H (FP) PO SCH (09:17)
--- NOTE | 2017-05-04 11:32 | PN ---
Progress Note, Physician History of Present Illness: No further near or true syncope. - Current Medication List Current Medications: Active Medications Atorvastatin Calcium (Lipitor -) 10 mg PO HS [facility] Last Admin: 05/03/17 21:57 Dose: 10 mg Clopidogrel Bisulfate (Plavix -) 75 mg PO DAILY@2200 [facility] Last Admin: 05/03/17 21:57 Dose: 75 mg Furosemide (Lasix -) 40 mg PO DAILY [facility] Last Admin: 05/04/17 09:17 Dose: 40 mg Sodium Chloride (Normal Saline -) 1,000 mls @ 75 mls/hr IV ASDIR [facility] Metoprolol Tartrate (Lopressor -) 50 mg PO BID [facility] Last Admin: 05/04/17 09:17 Dose: 50 mg Non-Formulary Medication (Ipratropium [place] [Atrovent Hfa]) 12.9 gm IH PRN PRN PRN Reason: SHORTNESS OF BREATH Tamsulosin HCl (Flomax -) 0.4 mg PO DAILY [facility] Last Admin: 05/04/17 09:17 Dose: 0.4 mg - Objective Vital Signs: Vital Signs Temperature 98.5 F 05/04/17 00:53 Pulse Rate 53 L 05/04/17 00:53 Respiratory Rate 20 05/04/17 00:53 Blood Pressure 133/74 05/04/17 00:53 O2 Sat by Pulse Oximetry (%) 96 05/03/17 20:46 Constitutional: Yes: No Distress, Calm Neck: Yes: Supple Cardiovascular: Yes: Regular Rate and Rhythm Respiratory: Yes: Regular, CTA Bilaterally, On Nasal O2 Gastrointestinal: Yes: Normal Bowel Sounds, Soft Edema: Yes Edema: LLE: 1+, RLE: 1+ Labs: CBC, BMP 05/04/17 06:00 05/04/17 06:00 - ....Imaging EKG: Report Reviewed (Tele: SR) Problem List - Problems (1) CAD (coronary artery disease) Code(s): I25.10 - ATHSCL HEART DISEASE OF [place] CORONARY ARTERY W/O ANG PCTRS Qualifiers: Coronary Disease-Associated Artery/Lesion type: [place] artery [place] vs. transplanted heart: [place] heart Associated angina: without angina Qualified Code(s): I25.10 - Atherosclerotic heart disease of [place] coronary artery without angina pectoris (2) Dizziness Code(s): R42 - DIZZINESS AND GIDDINESS (3) Gastric cancer Code(s): C16.9 - MALIGNANT NEOPLASM OF STOMACH, UNSPECIFIED Qualifiers: Malignant neoplasm of stomach location: unspecified location Qualified Code(s): C16.9 - Malignant neoplasm of stomach, unspecified (4) Hypercholesterolemia Code(s): E78.00 - PURE HYPERCHOLESTEROLEMIA, UNSPECIFIED (5) Diastolic CHF Code(s): I50.30 - UNSPECIFIED DIASTOLIC (CONGESTIVE) HEART FAILURE Qualifiers : Congestive heart failure chronicity: chronic Qualified Code(s): I50.32 - Chronic diastolic (congestive) heart failure (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 Dizziness resolved 2. Hypertension 3. Hypercholesterolemia 4. History of gastric CA s/p resection 5. Sinus bradycardia 6. COPD/emphysema 7. CAD - post NSTEMI earlier this year 8. Anemia PLAN: 1. Continue Metoprolol 50 bid 2. Continue Plavix 75 qd 3. Continue Lipitor 10 qhs 4. Decrease Lasix 20 qd (home dose) with monitor I/Os, electrolytes and renal function 5. D/c planning
[2017-05-04] MEDS ORDERED: FUROSEMIDE 20 MG TABLET (FP) PO SCH (11:48)
--- NOTE | 2017-05-04 13:10 | DS ---
Physical Examination Vital Signs: Vital Signs Temperature 98.5 F 05/04/17 00:53 Pulse Rate 53 L 05/04/17 00:53 Respiratory Rate 20 05/04/17 00:53 Blood Pressure 133/74 05/04/17 00:53 O2 Sat by Pulse Oximetry (%) 96 05/03/17 20:46 Constitutional: Yes: No Distress HENT: Yes: Atraumatic Neck: Yes: Supple Cardiovascular: Yes: Regular Rate and Rhythm Respiratory: Yes: CTA Bilaterally Gastrointestinal: Yes: Normal Bowel Sounds Extremities: Yes: WNL Neurological: Yes: Alert, Oriented Labs: CBC, BMP 05/04/17 06:00 05/04/17 06:00 Discharge Summary Reason For Visit: SILENT MYOCARDIAL INFARCTION Current Active Problems Anemia (Acute) CAD (coronary artery disease) (Acute) COPD (chronic obstructive pulmonary disease) (Acute) Dizziness (Acute) Gastric cancer (Acute) Hypercholesterolemia (Acute) 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 (Acute) Silent myocardial infarction (Acute) - Instructions Referrals: Chalo Headley MD [Primary Care Provider] - - Home Medications Comprehensive Discharge Medication List: Ambulatory Orders Tamsulosin HCl 0.4 mg PO DAILY 08/08/12 Albuterol Sulfate [Proventil HFA Inhaler -] 1 - 2 inh PO TID 11/22/13 Salmeterol/Fluticasone [Advair 250Mcg/50Mcg -] 1 inh PO BID 11/22/13 Ipratropium [place] [Atrovent Hfa] 12.9 gm IH PRN PRN #1 hfa.aer.ad 04/04/15 Clopidogrel Bisulfate [Plavix -] 75 mg PO DAILY@2200 tablet 10/01/16 Metoprolol Tartrate [Lopressor -] 50 mg PO BID tablet 10/01/16 Furosemide [Lasix -] 20 mg PO DAILY 10/08/16 Lovastatin [Altoprev] 20 mg PO DAILY 05/02/17 Tiotropium [place] [Spiriva] 1 inh PO DAILY 05/02/17 ks home fu cardiology as out pt
[2017-05-04 15:36] VITALS: BP 138/72; PULSE 60; TEMP 98.4
== END 2017-05-04 20:18 | disposition home or self-care (01) | DRG 281 ==
LOC: JER 12:29 → INTOOBSV 18:36 → JERBED 18:36 → J4W 22:38 → OBSVTOIN 05-04 14:00
PROVIDERS: ADMIT Internal Medicine; ATTEND Internal Medicine
DX: I21.3 ST elevation (STEMI) myocardial infarction of unspecified site (principal); C34.90 Malignant neoplasm of unspecified part of unspecified bronchus or lung; R64 Cachexia; Z68.1 Body mass index [BMI] 19.9 or less, adult; Z99.81 Dependence on supplemental oxygen; Z85.028 Personal history of other malignant neoplasm of stomach; E78.00 Pure hypercholesterolemia, unspecified; Z90.3 Acquired absence of stomach [part of]; Z87.891 Personal history of nicotine dependence; E87.5 Hyperkalemia; J43.9 Emphysema, unspecified; J45.909 Unspecified asthma, uncomplicated; N40.0 Benign prostatic hyperplasia without lower urinary tract symptoms; I25.10 Atherosclerotic heart disease of native coronary artery without angina pectoris; R00.1 Bradycardia, unspecified; D64.9 Anemia, unspecified
CPT/HCPCS: 36415; 71010-TC; 80048; 80053; 81003; 82553; 84484; 85025; 93005; 93010; 93306-TC; 99285-25; G0378

== ENCOUNTER 2017-05-19 13:32 | Emergency (ER) | payer OTHER, BC ==
[2017-05-19 13:52] VITALS: TEMP 98.2; BMI 21.2
--- NOTE | 2017-05-19 13:54 | PDOC ---
History of Present Illness - General Chief Complaint: Pain Stated Complaint: FALL Time Seen by Provider: 05/19/17 13:53 Past History - Past Medical History Allergies/Adverse Reactions: Allergies Allergy/AdvReac Type Severity Reaction Status Date / Time No Known Allergies Allergy Verified 05/19/17 13:48 Home Medications: Ambulatory Orders Tamsulosin HCl 0.4 mg PO DAILY 08/08/12 Albuterol Sulfate [Proventil HFA Inhaler -] 1 - 2 inh PO TID 11/22/13 Salmeterol/Fluticasone [Advair 250Mcg/50Mcg -] 1 inh PO BID 11/22/13 Ipratropium [place] [Atrovent Hfa] 12.9 gm IH PRN PRN #1 hfa.aer.ad 04/04/15 Clopidogrel Bisulfate [Plavix -] 75 mg PO DAILY@2200 tablet 10/01/16 Metoprolol Tartrate [Lopressor -] 50 mg PO BID tablet 10/01/16 Furosemide [Lasix -] 20 mg PO DAILY 10/08/16 Lovastatin [Altoprev] 20 mg PO DAILY 05/02/17 Tiotropium [place] [Spiriva] 1 inh PO DAILY 05/02/17 Anemia: No Asthma: No Cancer: Yes (stomach lung) Cardiac Disorders: Yes (mild nstemi) CVA: No COPD: Yes CHF: No Dementia: No Diabetes: No GI Disorders: Yes (GERD,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) Disorders: Yes (BPH) HTN: No Hypercholesterolemia: Yes Liver Disease: No Seizures: No Thyroid Disease: No - Surgical History Abdominal Surgery: Yes (STOMACH CA) Appendectomy: No Cardiac Surgery: No Cholecystectomy: No GI Surgery: Yes (1/3 stomach removed) Lung Surgery: No Neurologic Surgery: No Orthopedic Surgery: No - Immunization History Immunization Up to Date: Yes - Psycho/Social/Smoking Cessation Hx Anxiety: No Suicidal Ideation: No Smoking History: Former smoker Have you smoked in the past 12 months: Yes Number of Cigarettes Smoked Daily: 0 If you are a former smoker, when did you quit?: NOVEMBER 2016 Information on smoking cessation initiated: No 'Breaking Loose' booklet given: 10/08/16 Hx Alcohol Use: No Drug/Substance Use Hx: No Substance Use Type: None Hx Substance Use Treatment: No *Physical Exam - Vital Signs Last Vital Signs Temp Pulse Resp BP Pulse Ox 98.2 F 60 20 134/67 100 05/19/17 13:40 05/19/17 13:40 05/19/17 13:40 05/19/17 13:40 05/19/17 13:40
--- NOTE | 2017-05-19 14:08 | PDOC ---
History of Present Illness - General Chief Complaint: Pain Stated Complaint: FALL Time Seen by Provider: 05/19/17 13:53 - History of Present Illness Initial Comments: 05/19/17 14:08 Mr. Matt is an 81 year old male with a significant past medical history of COPD , AAA, HTN, Hypernatremia, Lung Cancer who presents to the emergency department following mechanical fall for evaluation. Mr. Matt had a witnessed fall after getting tangled up in his nasal cannula. He did not lose consciousness or have any neurological symptoms but says that his abdomen generally hurts with movement. The patient denies chest pain, shortness of breath, headache and dizziness. Denies fever, chills, nausea, vomit, diarrhea and constipation. Denies dysuria, frequency, urgency and hematuria. Allergies: Past surgical history: Social history: PMD - 05/19/17 15:42 Past History - Past Medical History Allergies/Adverse Reactions: Allergies Allergy/AdvReac Type Severity Reaction Status Date / Time No Known Allergies Allergy Verified 05/19/17 13:48 Home Medications: Ambulatory Orders Tamsulosin HCl 0.4 mg PO DAILY 08/08/12 Albuterol Sulfate [Proventil HFA Inhaler -] 1 - 2 inh PO TID 11/22/13 Salmeterol/Fluticasone [Advair 250Mcg/50Mcg -] 1 inh PO BID 11/22/13 Ipratropium [place] [Atrovent Hfa] 12.9 gm IH PRN PRN #1 hfa.aer.ad 04/04/15 Clopidogrel Bisulfate [Plavix -] 75 mg PO DAILY@2200 tablet 10/01/16 Metoprolol Tartrate [Lopressor -] 50 mg PO BID tablet 10/01/16 Furosemide [Lasix -] 20 mg PO DAILY 10/08/16 Lovastatin [Altoprev] 20 mg PO DAILY 05/02/17 Tiotropium [place] [Spiriva] 1 inh PO DAILY 05/02/17 Tramadol HCl [Ultram -] 50 mg PO Q6H PRN #20 tablet MDD 4 tabs 05/19/17 Anemia: No Asthma: No Cancer: Yes (stomach lung) Cardiac Disorders: Yes (mild nstemi) CVA: No COPD: Yes CHF: No Dementia: No Diabetes: No GI Disorders: Yes (GERD,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) Disorders: Yes (BPH) HTN: No Hypercholesterolemia: Yes Liver Disease: No Seizures: No Thyroid Disease: No - Surgical History Abdominal Surgery: Yes (STOMACH CA) Appendectomy: No Cardiac Surgery: No Cholecystectomy: No GI Surgery: Yes (1/3 stomach removed) Lung Surgery: No Neurologic Surgery: No Orthopedic Surgery: No - Immunization History Immunization Up to Date: Yes - Psycho/Social/Smoking Cessation Hx Anxiety: No Suicidal Ideation: No Smoking History: Former smoker Have you smoked in the past 12 months: Yes Number of Cigarettes Smoked Daily: 0 If you are a former smoker, when did you quit?: NOVEMBER 2016 Information on smoking cessation initiated: No 'Breaking Loose' booklet given: 10/08/16 Hx Alcohol Use: No Drug/Substance Use Hx: No Substance Use Type: None Hx Substance Use Treatment: No Review of Systems - Review of Systems Comments:: 05/19/17 14:08 GENERAL/CONSTITUTIONAL: No fever or chills. No weakness. HEAD, EYES, EARS, NOSE AND THROAT: No change in vision. No ear pain or discharge. No sore throat. CARDIOVASCULAR: No chest pain or shortness of breath RESPIRATORY: No cough, wheezing, or hemoptysis. GASTROINTESTINAL: No nausea, vomiting, diarrhea or constipation. GENITOURINARY: No dysuria, frequency, or change in urination. MUSCULOSKELETAL: No joint or muscle swelling or pain. No neck or back pain. SKIN: No rash NEUROLOGIC: No headache, vertigo, loss of consciousness, or change in strength/ sensation. ENDOCRINE: No increased thirst. No abnormal weight change HEMATOLOGIC/LYMPHATIC: No anemia, easy bleeding, or history of blood clots. ALLERGIC/IMMUNOLOGIC: No hives or skin allergy. *Physical Exam - Vital Signs Last Vital Signs Temp Pulse Resp BP Pulse Ox 98.2 F 60 20 134/67 100 05/19/17 13:40 05/19/17 13:40 05/19/17 13:40 05/19/17 13:40 05/19/17 13:40 - Physical Exam Comments: 05/19/17 14:08 GENERAL: Awake, alert, and fully oriented, in no acute distress HEAD: No signs of trauma, normocephalic, atraumatic EYES: PERRLA, EOMI, sclera anicteric, conjunctiva clear ENT: Auricles normal inspection, hearing grossly normal, nares patent, oropharynx clear without exudates. Moist mucosa NECK: Normal ROM, supple, no lymphadenopathy, JVD, or masses LUNGS: No distress, speaks full sentences, clear to auscultation bilaterally HEART: Regular rate and rhythm, normal S1 and S2, no murmurs, rubs or gallops, peripheral pulses normal and equal bilaterally. ABDOMEN: Soft, nontender, normoactive bowel sounds. No guarding, no rebound. No masses EXTREMITIES: Normal inspection, Normal range of motion, no edema. No clubbing or cyanosis. NEUROLOGICAL: Cranial nerves II through XII grossly intact. Normal speech, normal gait, no focal sensorimotor deficits SKIN: Warm, Dry, normal turgor, no rashes or lesions noted. ED Treatment Course - LABORATORY CBC & Chemistry Diagram: 05/19/17 14:44 05/19/17 14:40 Medical Decision Making - Medical Decision Making 05/19/17 16:53 Mr. Matt presents for evaluation post fall. CT showed superior endplate compression fracture of L1 05/19/17 17:00 Patient able to ambulate freely; discharged to home. *DC/Admit/Observation/Transfer Diagnosis at time of Disposition: Compression fracture of first lumbar vertebra Qualifiers: Qualified Code(s): S32.010A - [place] compression fracture of first lumbar vertebra, initial encounter for closed fracture - Discharge Dispostion Disposition: HOME - Prescriptions Prescriptions: Tramadol HCl [Ultram -] 50 mg PO Q6H PRN #20 tablet MDD 4 tabs PRN Reason: Pain - Referrals Referrals: Chalo Headley MD [Primary Care Provider] - - Patient Instructions Printed Discharge Instructions: DI for Vertebral Fracture
--- NOTE | 2017-05-19 14:37 | PDOC ---
Attending Attestation - Resident Resident Name: Janusz Maldonado - ED Attending Attestation I have performed the following: I have examined & evaluated the patient, The case was reviewed & discussed with the resident, I agree w/resident's findings & plan, Exceptions are as noted - HPI HPI: 05/19/17 14:34 81-year-old male with history of COPD and AAA on Plavix presents with abdominal pain status post mechanical trip and fall on his oxygen tubing earlier this morning. Fell directly onto his buttock, no head injury or the direct impact, was able to stand and has been ambulatory since then he presents now complaining of pain around his lower abdomen and back. No lightheadedness or syncope, no chest pain or palpitations or difficulty breathing. - Physicial Exam PE: 05/19/17 14:35 vital signs stable. Atraumatic out evidence of head injury No midline spine tenderness, pelvis stable without focal tenderness Moving all extremities equally without focal deformity or bony tenderness Abdomen is soft and nontender. Question bladder distention, but no tenderness. - Medical Decision Making 05/19/17 14:36 Patient seen and evaluated with the resident. I agree with the overall evaluation, assessment, and management with the following summary of visit: 81-year-old male on Plavix presents with mechanical trip and fall onto buttock. Known AAA and now experiencing abdominal pain, which can be concerning for partial rupture though hemodynamically stable with benign abdominal exam. Question compression spine fracture with neuropathic abdominal pain, but neurologically intact without abnormal sensory level. Check labs Stat CT of the abdomen and pelvis Reassess Discharge Disposition - Diagnosis Compression fracture of first lumbar vertebra Qualifiers: Encounter type: initial encounter Fracture type: closed Qualified Code(s): S32.010A - Wedge compression fracture of first lumbar vertebra, initial encounter for closed fracture - Discharge Dispostion Last Admission D/C Date: 05/04/17 - Prescriptions Prescriptions: Ketorolac Tromethamine [Toradol] 10 mg PO Q6H PRN #20 tablet PRN Reason: Pain - Referrals Referrals: Chalo Headley MD [Primary Care Provider] - Heart Score/ECG Review #1 ECG reviewed & interpreted by me at: 13:40 General ECG Interpretation: Sinus Rhythm, Normal Rate (50), Normal Intervals ( qtc 399), No acute ischemic changes
[2017-05-19 14:53] LABS: BASOPHIL 0.6 % (0-2.0); EOSINOPHIL 1.3 % (0-4.5); MCH 28.6 pg (25.7-33.7); MCHC 33.1 g/dl (32.0-35.9); MEAN CELL VOLUME 86.7 fl (80-96); MEAN PLT VOLUME 8.3 fl (7.5-11.1); NEUTROPHILS 76.3 % (42.8-82.8); PLATELET COUNT 154 K/MM3 (134-434); RDW 17.3 % (11.9-15.9); WHITE BLOOD COUNT 3.9 K/mm3 (4.0-10.0)
[2017-05-19 15:12] LABS: INR 0.95 (0.82-1.09); PROTHROMBIN TIME (PATIENT) 10.4 SEC (9.98-11.88)
[2017-05-19 15:15] LABS: ACTIVATED PTT 30.1 SECONDS (26.9-34.4)
[2017-05-19 15:17] LABS: ALBUMIN 2.6 g/dl (3.4-5.0); ANION GAP 4 (8-16); BILIRUBIN,TOTAL 0.4 mg/dL (0.2-1.0); CALCIUM 8.3 mg/dL (8.5-10.1); CO2 35 mmol/L (21-32); GLUCOSE,RANDOM 84 mg/dL (74-106); SGPT/ALT 33 U/L (12-78); TOT PROT 5.8 g/dl (6.4-8.2)
[2017-05-19 15:18] LABS: ALK PHOS 103 U/L (45-117)
[2017-05-19 15:23] LABS: SGOT/AST 39 U/L (15-37)
[2017-05-19 17:15] VITALS: BP 132/74; PULSE 65
--- NOTE | 2017-05-20 09:03 | EKG ---
Test Reason : Blood Pressure : / mmHG Vent. Rate : 050 BPM Atrial Rate : 050 BPM P-R Int : 134 ms QRS Dur : 068 ms QT Int : 438 ms P-R-T Axes : 079 081 077 degrees QTc Int : 399 ms POOR DATA QUALITY, INTERPRETATION MAY BE ADVERSELY AFFECTED SINUS BRADYCARDIA WHEN COMPARED WITH ECG OF 02-MAY-2017 12:55, NO SIGNIFICANT CHANGE WAS FOUND Confirmed by JUNIOR MONROY MD ([id number]) on 05/20/2017 9:03:27 AM Referred By: Confirmed By:JUNIOR MONROY MD
== END 2017-05-19 17:15 | disposition home or self-care (01) ==
LOC: JER 13:32
DX: S32.010A Wedge compression fracture of first lumbar vertebra, initial encounter for closed fracture (principal); I25.2 Old myocardial infarction; I10 Essential (primary) hypertension; Z87.891 Personal history of nicotine dependence; J44.9 Chronic obstructive pulmonary disease, unspecified; N40.0 Benign prostatic hyperplasia without lower urinary tract symptoms; Z79.01 Long term (current) use of anticoagulants; Z85.028 Personal history of other malignant neoplasm of stomach; Z86.79 Personal history of other diseases of the circulatory system; W01.0XXA Fall on same level from slipping, tripping and stumbling without subsequent striking against object, initial encounter; Y93.89 Activity, other specified; Y92.038 Other place in apartment as the place of occurrence of the external cause
CPT/HCPCS: 36415; 72100-TC; 72170-TC; 74177-TC; 80053; 85025; 85610; 85730; 93005; 93010; 99284-25